=== PATIENT | male | born 1940 | race Caucasian/White ===

== ENCOUNTER 2016-05-02 18:32 | Inpatient (IN) | payer OTHER ==
[~2016-05-02] VITALS: Ht 175.3 cm; Wt 62.6 kg
--- NOTE | ~2016-05-02 | EKG ---
[place] [address] [facility] [place] [employer] [place] [address] ELECTROCARDIOGRAM REPORT Name: ANNIEANALIA Room #: 423-1 ADM IN M.R.#: [id number] Admission: 05/02/16 Attend Phys: William Villafuerte MD Discharge: Date of : 42 Report #: [id number] THIS REPORT FOR: //name// [facility] ED Test Date: 2016-05-02 Test Time: 19:06:17 Pat Name: ANALIA VALENCIA Department: Room: [facility] Gender: M Vp Director Of Creative Strategy: RENITA : 1940 Requested By: Erin Croft Order Number: [id number] MD: Parker Perez Measurements Intervals [place] Rate: 66 P: 246 SD: 166 QRS: 40 QRSD: 94 T: 14 QT: 464 QTc: 487 Interpretive Statements Sinus or ectopic atrial rhythm Borderline prolonged QT interval Baseline wander in lead(s) II No previous ECG available for comparison Electronically Signed On 05-05-2016 8:57:07 CDT by Parker Perez [email or web address] <ELECTRONICALLY SIGNED> By: Parker Perez MD, [facility] 05/05/16 0857 05 05 Parker Perez MD, FAC /EPI
--- NOTE | ~2016-05-02 | HC ---
[facility] [place] [address] CONSULTATION Name: ANALIA VALENCIA Room #: 423-1 ADM IN [facility].#: [id number] Admission: 05/02/16 Attend Phys: William Villafuerte MD Discharge: Date of : 42 Report #: [id number] THIS REPORT FOR: //name// CC: William Aburto MD DATE OF SERVICE: 05/03/2016 HISTORY OF PRESENT ILLNESS: The patient is a 75-year-old single white male, who I was asked to see in the hospital today after he complained of feeling lightheaded. The patient has an extensive past medical history. Most of the history was obtained from the patient. He states that he actually had balloon angioplasty performed at [facility] back in the . He was actually seen by Dr. Alcazar at that time. He eventually underwent quadruple coronary artery bypass surgery in 1995, at [facility]. He was followed by Dr. Doe at that time. He has had no further cardiac catheterizations. He never required stenting. His last stress test in August 2015 showed a fixed defect, but no ischemia. His last echocardiogram in 2012 showed an ejection fraction of 50% with mild aortic and mitral regurgitation. The patient does not exercise on a regular basis because of chronic back pain. He does have a history of paroxysmal atrial fibrillation. He apparently has never been cardioverted. He has been chronically anticoagulated. 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 He last saw Dr. Lucero in the cardiology clinic in [place] in February of this year. At that time, he was doing well. His pacemaker was actually analyzed in December 2015. It did show intermittent episodes of atrial fibrillation with mode switching. The patient states that for the last few days, he has felt lightheaded. He felt as if he had to hold on to something or he would fall. He felt weak. He has had some ringing in the ear and nausea. Because of these episodes, he finally came to the emergency room yesterday afternoon. He felt lightheaded. He denied any vomiting, diarrhea or bleeding. He denied the room spinning. He denied falling to the right or left. He has had no blood in stool. He denied any chest pain, shortness of breath, edema or palpitations. He was admitted for further evaluation and treatment. The patient was seen by Neurology yesterday who was not sure what his symptoms were due to. However, no significant neurologic pathology was noted. PAST MEDICAL HISTORY: Otherwise significant for esophageal cancer about 15 years ago. He apparently underwent esophagectomy, followed by chemotherapy and radiation therapy by . He has a history of hyperlipidemia. He has had no history of hypertension and no diabetes. MEDICATIONS: Include, 1. Ranitidine. [address] [address] CONSULTATION Name: ANALIA VALENCIA Zaheer Room #: 423-1 ADM IN .R.#: [id number] Admission: 05/02/16 Attend Phys: William Villafuerte MD Discharge: Date of : 42 Report #: [id number] 2. Lipitor. 3. Pradaxa. 4. Sotalol, he takes 180 mg twice a day. 5. Celecoxib. 6. Imdur 30 mg a day. 7. Flomax. ALLERGIES: He has no known drug allergies. FAMILY HISTORY: Negative for heart disease. SOCIAL HISTORY: He is retired from the [employer]. 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 He lives in [place], [place]. His actually just last January and he is still somewhat depressed following her after a 50-year marriage. No smoking or alcohol abuse. REVIEW OF SYSTEMS: He apparently was told by his eye doctor in the past he has had a TIA. He has no history of asthma or peptic ulcer disease. He has had a kidney stone. No chronic skin condition. PHYSICAL EXAMINATION: GENERAL: Revealed an elderly male who was lying in bed. He appeared in no distress. VITAL SIGNS: He had a blood pressure supine of 150/80, standing 150/80. He was afebrile. HEENT: He was anicteric. Conjunctivae are pink. Mucous membranes are moist. NECK: Veins nondistended. No carotid bruits. CHEST: Clear to auscultation. CARDIOVASCULAR: Regular rate and rhythm. No significant murmur. ABDOMEN: Soft, nontender. EXTREMITIES: Had no edema. Dorsalis pedis pulse could not be palpated. SKIN: Cool and dry. NEUROLOGIC: Nonfocal. LYMPH: No adenopathy. MUSCULOSKELETAL: No joint effusion. IMAGING STUDIES: His ECG appears to show an atrial paced rhythm with QT prolongation and on the monitor, he has remained atrial-paced with occasional PVC. His workup so far, he had a CTA of the head and neck that showed no high-grade stenosis or aneurysm. CT scan of the head done without contrast showed no acute abnormality. He had a chest x-ray that showed normal heart size and clear lung willis. LABORATORY STUDIES: His lab work, sodium 138, creatinine 1.1 and glucose 92. Liver function studies were normal. Hemoglobin 10.5. TSH 1.4. B12 of 652. Urinalysis was negative for protein, negative leukocytes. [address] [address] CONSULTATION Name: ANALIA VALENCIA Room #: 423-1 ADM IN ..#: [id number] Admission: 05/02/16 Attend Phys: William Villafuerte MD Discharge: Date of : 42 Report #: [id number] IMPRESSION AND RECOMMENDATIONS: 1. Lightheaded spells. The patient is not orthostatic. Possibly related to paroxysmal atrial fibrillation. The patient is noted to have frequent mode switching. I would recommend increasing his sotalol up to 240 mg twice a day. I would continue anticoagulation. 2. History of atrial fibrillation. 3. Sick sinus syndrome. The patient has a dual-chamber pacemaker in place. 4. Coronary artery disease. Previous bypass surgery. No recent angina. 5. Hyperlipidemia. The patient is on a statin drug. 6. History of esophageal cancer. 7. Anemia. No history of bleeding. At this time, I think it is reasonable to discharge the patient on his present medications including increasing sotalol to 240 mg twice a day. I will make sure that he receives followup with my partner, Dr. Lucero. <ELECTRONICALLY SIGNED> By: Kasi Kelley MD, FACC 05/05/16 0905 1749 2215 Kasi Kelley MD, FAC /nt
--- NOTE | ~2016-05-02 | HC ---
[facility] [place] [address] CONSULTATION Name: ANALIA VALENCIA Zaheer Room #: 423-1 ADM IN .R.#: [id number] Admission: 05/02/16 Attend Phys: William Villafuerte MD Discharge: Date of : 42 Report #: [id number] THIS REPORT FOR: //name// CC: William Aburto DATE OF SERVICE: 05/03/2016 DATE OF SERVICE: 05/03/2016. HISTORY OF PRESENT ILLNESS: This is a 75-year-old male patient who was evaluated by me for somewhat of an unusual history. History for complaint is that he has ambulation difficulty. He suspect it started about 1-2 weeks ago, it is worse when me gets up and become somewhat better as the day progresses, it, but some ambulation difficulty is always there. His ambulation difficulty is a moderately severe in the morning, but it is less severe as the day progresses. He does not know what brings it on. He does not know any other factors which makes it better or worse. It started spontaneously and has become somewhat worse. REVIEW OF SYSTEMS: Pretty extensive in this patient. He has a history of esophageal carcinoma and the stomach surgery was done at that time and esophagus was removed. He did receive chemotherapy and radiation. That was long time ago in early 1999. He did not have any evidence of reoccurrence and he does not have any paraneoplastic process since then. His in January, but he does not feel too much depressed. He did start drinking 1 alcoholic drink every night. Then, he thought that may have caused it, and he stopped drinking alcohol. He had some nausea and vomiting, but that was not very prominent. He has lost significant amount of weight recently. This was his relevant 14-point review of system. He indicates that he does have a pacemaker. He has talked to Cardiology and they have indicated there has been event, but he has not been able to find out what event it was. He has taken multiple vitamin on a regular basis for a long period of time. He is also on Pradaxa for his atrial fibrillation. He denies any new eye, ENT, respiratory, , musculoskeletal, constitutional, dermatological, hematological, psychiatric, throat or allergic symptom associated with present symptomatology. PAST MEDICAL HISTORY: Positive for esophageal carcinoma. FAMILY HISTORY: Negative for early age stroke. SOCIAL HISTORY: He has recently started to drink 1 alcoholic drink a day, but otherwise does not smoke or drink any alcohol. PHYSICAL EXAMINATION: Indicate he is alert, responsive, oriented. His speech, concentration, fund of [address] [address] CONSULTATION Name: ANALIA VALENCIA Room #: 423-1 [facility] IN [facility].#: [id number] Admission: 05/02/16 Attend Phys: William Villafuerte MD Discharge: Date of : 42 Report #: [id number] knowledge and memory is at his baseline. Cranial nerve examination 2-12 was unremarkable. He does appear to have symmetrical strength, sensation, reflexes and tone in all 4 extremities. He does not appear to have any marked abnormality of [id number]. Attempt was made to do THE fundus examination. I could not have a very good look at the patient's fundus and we will try again. He is a reasonably well-developed individual who does not have any dysmorphic features of eyes, ears and face. His vision and hearing looks adequate. He does not appear to have any carotid bruit or meningeal sign and his thyroid is unremarkable. He does have a pacemaker and does have a history of atrial fibrillation, but heart sounds, looks unremarkable, does not have any respiratory difficulty and there is no rhonchi. There is no edema, cyanosis or jaundice. His pulses are difficult to feel, but I believe are palpable. His CT and CT angiogram was reviewed and is summarized as of all. His vital signs were reviewed. His last blood pressure is 148/73, respiration is 18, pulse is 66, temperature is 97.9 and he has been checked for postural hypotension and none has been found and in fact his blood pressure is running somewhat higher range. LABORATORY DATA: Indicates mild anemia as the hemoglobin of 10.5, but is otherwise unremarkable. IMPRESSION: It is not clear what this patient's diagnosis is. Neurological etiology is less likely in this patient because a CT and CT angiogram is clear and he is already on Pradaxa, which would protect from stroke. MRI is a better test, but that cannot be done because of his pacemaker. However, because of the normal CT, I will suggest looking for other etiology for the patient's symptom. I will suggest checking overnight pulse oximetry. I will go ahead and give him thiamine and because he did drink alcohol. The possibility of depression need to be excluded, but I think we need to concentrate on ruling out organic causes for the time being. He does have a previous stomach surgery and the possibility of deficiency need to be excluded. His pacemaker need to be checked, especially if he has an event and further cardiac workup may have to be done, which I will defer to you. RECOMMENDATIONS: 1. We will see how he does with the physical therapy today. 2. We will order some more blood workup. 3. I will suggest concentrating on systemic workup in this patient as outlined above. 4. We will go ahead and give thiamine to this patient. 5. I will check a thyroid and B12 level. 6. I will check voltage gated calcium channel antibodies and sed rate on him tomorrow. [facility] [address] [place] [address] CONSULTATION Name: ANALIA VALENCIA Zaheer Room #: 423-1 ADM IN M.R.#: [id number] Admission: 05/02/16 Attend Phys: William Villafuerte MD Discharge: Date of : 42 Report #: [id number] Thank you very much for allowing me to share in the management of this patient and will follow the patient along with you. <ELECTRONICALLY SIGNED> By: Nazario Brizuela MD 05/05/16 0132 0941 1049 Nazario Brizuela MD /nt
--- NOTE | ~2016-05-02 | 2DMMODE ---
[facility] [place] [employer] [place] [address] 2 D/M-MODE ECHOCARDIOGRAM Name: ANALIA VALENCIA Room #: 423-1 [facility] IN [facility]#: [id number] Admission: 05/02/16 Attend Phys: Richard Martini Discharge: 05/05/16 Date of : 42 Date of Service: 05/06/16 0917 Report #: [id number] THIS REPORT FOR: //name// APPROVED REPORT EXAM: Comprehensive 2D, Doppler, and color-flow Echocardiogram Patient Location: Bedside Blood Pressure: 164/85 mmHg HR: 65 bpm Rhythm: Atrial Fibrillation Other Information Study Quality: Good Indications Dizziness and Vertigo Atrial Fibrillation CAD Hypertension/HDD CABG 2D Dimensions LVEF(%): 39.36 (>50%) IVSd: 10.23 (7-11mm) LVOT Diam: 19.00 (18-24mm) LVDd: 34.98 mm PWd: 11.38 (7-11mm) Ascending Aorta: 27.58 mm LVDs: 28.48 (25-40mm) Cherry's LVEF: 39.36 % Volumes Left Atrial Volume (Systole) Single Plane 4CH: 27.07 mL Single Plane 2CH: 32.66 mL LA ESV Index: 20.00 mL/m2 Aortic Valve AoV Peak Kraig.: 1.21 m/s AI PHT: 868.16 ms AO Peak Gr.: 6.49 mmHg LV Max P.99 mmHg LV Max: 0.86 m/s AI Vmax: 4.04 m/s AI [place]: 1.36 m/s2 [facility] [address] 2 D/M-MODE ECHOCARDIOGRAM Name: ANNIEANALIA Room #: 423-1 [facility] IN [facility]#: [id number] Admission: 05/02/16 Attend Phys: Richard Martini Discharge: 05/05/16 Date of : 42 Date of Service: 05/06/16 0917 Report #: [id number] Mitral Valve MV PHT: 79.89 ms MV E Max Kraig.: 0.91 m/s E/A Ratio: 1.7 MV A Kraig.: 0.53 m/s MV Decel. Time: 275.49 ms Pulmonary Valve PV Peak Kraig.: 0.98 m/s PV Peak Gr.: 3.90 mmHg Tricuspid Valve TR Peak Kraig.: 2.44 m/s RAP Estimate: 5.00 mmHg TR Peak Gr.: 23.90 mmHg Left Ventricle The left ventricle is normal size. Mid-septal hypokinesis. There is normal left ventricular wall thickness. Left ventricular systolic function is mildly decreased. LVEF is 45-50%. The left ventricular diastolic function is normal. Right Ventricle Right ventricle is mildly dilated. The right ventricular systolic function is normal. Atria The left atrium size is normal. Right atrium is mildly dilated. Aortic Valve Aortic valve leaflets are sclerotic but open well. Mild aortic regurgitation. There is no aortic valvular stenosis. Mitral Valve The mitral valve is normal in structure. Mild mitral regurgitation. Tricuspid Valve The tricuspid valve is normal in structure. Trace tricuspid regurgitation. Pulmonic Valve The pulmonary valve is normal in structure. Trace pulmonic regurgitation. Great Vessels The aortic root is normal in size. IVC is normal in size and collapses >50% with inspiration. [facility] [place] [employer] [place] [address] 2 D/M-MODE ECHOCARDIOGRAM Name: ANALIA VALENCIA Room #: 423-1 DIS IN M.R.#: [id number] Admission: 05/02/16 Attend Phys: Richard Martini Discharge: 05/05/16 Date of : 42 Date of Service: 05/06/16916 Report #: [id number] Pericardium There is no pericardial effusion. <Conclusion> Left ventricular systolic function is mildly decreased. LVEF is 45-50%. Mid-septal hypokinesis. Right ventricle is mildly dilated. Right atrium is mildly dilated. Aortic valve leaflets are sclerotic but open well. Mild aortic regurgitation. Mild mitral regurgitation. <ELECTRONICALLY SIGNED> By: Kasi Kelley MD, [facility] 05/06/16916 6 6 Kasi Kelley MD, FACC /INF
--- NOTE | ~2016-05-02 | EKG ---
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
[~2016-05-02 18:32] MED LIST: ACETAMINOPHEN-1 EAC1 PO; AMBEREN PO; AMBIEN 10 MG TA10 MG PO; ASPIRIN EC81 M1 PO; ESGIC PO; FISH OIL 1,001000 MG PO; LIPITOR10 MG PO; LISINOPRIL-HCT1 EAC1 PO; MAALOX SUSPENS148 ML PO; PLAVIX 75 MG TA75 MG PO; PRADAXA150 MG PO; SOTALOL80 MG PO; VITAMIN D31000 UNI2 PO; ZANTAC 150MG T150 M1 PO
[2016-05-02 19:04] VITALS: BP 144/84
[2016-05-02] MEDS ORDERED: TRAMADOL 50 MG50 MG PO (19:14)
[2016-05-02] MEDS ORDERED: BUTALB-APAP-CA1 EACH PO (19:14)
[2016-05-02] MEDS ORDERED: CELECOXIB100 MG PO (19:14)
[2016-05-02] MEDS ORDERED: IMDUR 30 MG TAB30 M1 PO (19:14)
[2016-05-02 20:43] LABS: URINE BILIRUBIN NEGATIVE (Negative); URINE BLOOD NEGATIVE (Negative); URINE COLOR YELLOW; URINE GLUCOSE-RANDOM* NEGATIVE (Negative); URINE KETONES TRACE (Negative); URINE NITRITE NEGATIVE (Negative); URINE PROTEIN (DIPSTICK) NEGATIVE (Negative); URINE SPECIFIC GRAVITY 1.025 (1.003-1.035); URINE UROBILINOGEN 0.2 E.U./dl (0.2-1.0)
[2016-05-02 20:43] LABS: ABSOLUTE NEUTROPHILS 3.8 thou/uL (1.4-8.2); BASOPHILS 0.2 % (0.0-2.0); EOSINOPHILS 0.7 % (0.0-3.0); HEMATOCRIT 31.9 % (42.0-52.0); HEMOGLOBIN 10.5 gm/dL (14.0-18.0); LYMPHOCYTES 30.4 % (24.0-44.0); MCH 32.3 pg (26.0-34.0); MCV 97.9 fL (80.0-100.0); MONOCYTES 7.9 % (1.0-8.0); PLATELET COUNT 221 thou/uL (150-400); POLYS 60.8 % (36.0-66.0); RBC 3.26 mil/uL (4.50-6.00); RDW 14.4 % (10.5-14.5); WBC 6.3 thou/uL (4.0-11.0)
[2016-05-02 20:46] LABS: MANUAL DIFF NO
[2016-05-02 20:59] LABS: ANION GAP 5 mmol/L (7-16); BUN 24 mg/dL (7-18); CALCIUM 9.2 mg/dL (8.5-10.1); CHLORIDE 105 mmol/L (98-107); CO2 28 mmol/L (21-32); CREATININE 1.1 mg/dL (0.6-1.3); GLUCOSE 92 mg/dL (70-99); POTASSIUM 4.1 mmol/L (3.5-5.1); SODIUM 138 mmol/L (136-145)
[2016-05-02 21:03] LABS: ALBUMIN 3.5 g/dL (3.4-5.0); ALKALINE PHOSPHATASE 60 U/L (46-116); SGOT 25 U/L (15-37); SGPT 36 U/L (30-65); TOTAL BILIRUBIN 0.6 mg/dL (<0.1-1.0); TOTAL PROTEIN 7.4 g/dL (6.4-8.2); TROPONIN-I < 0.04 ng/mL (<0.04-0.07)
[2016-05-02 23:05] VITALS: BP 130/66
[2016-05-03] VITALS (7 sets, daily range): BP systolic 104–174; BP diastolic 64–96
[2016-05-03] MEDS ORDERED: PRADAXA150 MG PO ×2 (01:52→01:56)
[2016-05-03] MEDS ORDERED: FLOMAX0.4 MG PO (01:55)
[2016-05-03 13:52] LABS: TSH 1.473 uIU/mL (0.358-3.740)
[2016-05-04] VITALS: BP 147/85
[2016-05-04 04:00] VITALS: BP 126/87
[2016-05-04 06:18] LABS: CHOLESTEROL 125 mg/dL (<200); HDL CHOLESTEROL 72 mg/dL (>40); LDL CHOLESTEROL 46 mg/dL (<100); TC:HDL 1.7 Ratio (Not establshd); TRIGLYCERIDE 36 mg/dL (<150); VLDL 7 mg/dL (<40)
[2016-05-04 08:00] VITALS: BP 151/81
[2016-05-04 10:38] VITALS: BP 151/81
[2016-05-04 14:30] VITALS: BP 105/57
[2016-05-04 20:00] VITALS: BP 132/69
[2016-05-05 04:00] VITALS: BP 137/85
[2016-05-05 06:09] LABS: HEMATOCRIT 29.9 % (42.0-52.0); MCH 32.5 pg (26.0-34.0); MCHC 33.3 g/dL (28.0-37.0); MCV 97.4 fL (80.0-100.0); RBC 3.07 mil/uL (4.50-6.00); RDW 14.7 % (10.5-14.5); WBC 6.6 thou/uL (4.0-11.0)
[2016-05-05 06:44] LABS: CALCIUM 8.6 mg/dL (8.5-10.1); CREATININE 1.2 mg/dL (0.6-1.3); POTASSIUM 3.9 mmol/L (3.5-5.1)
[2016-05-05 07:53] VITALS: BP 164/85
[2016-05-05] MEDS ORDERED: VITAMIN B-1100 M2 PO (12:41)
[2016-05-05] MEDS ORDERED: VITAMIN D1000 UNI1 PO (12:41)
[2016-05-05] MEDS ORDERED: SORINE 80 MG TA80 MG PO (12:56)
[2016-05-05 13:09] LABS: ANTI-DNA SCREEN <1 IU/mL (0-9); ANTI-RNP <0.2 AI (0.0-0.9)
[2016-05-05 13:12] VITALS: BP 164/85
[2016-05-05 13:55] VITALS: BP 164/85
== END 2016-05-05 14:55 | disposition home or self-care (01) | DRG 92 ==
LOC: ER 18:32 → 4E 23:16 → EROBS 23:16 → 4E 23:58
PROVIDERS: Hospitalist; Internal Medicine Cardiovascular Disease; Physician Assistant; Psychiatry & Neurology Neuromuscular Medicine
DX: R27.0 Ataxia, unspecified (principal); E44.1 Mild protein-calorie malnutrition; I95.2 Hypotension due to drugs; I95.9 Hypotension, unspecified; I48.0 Paroxysmal atrial fibrillation; E78.5 Hyperlipidemia, unspecified; I49.5 Sick sinus syndrome; G62.9 Polyneuropathy, unspecified; I25.10 Atherosclerotic heart disease of native coronary artery without angina pectoris; D64.9 Anemia, unspecified; R63.4 Abnormal weight loss; T45.0X5A Adverse effect of antiallergic and antiemetic drugs, initial encounter; I11.9 Hypertensive heart disease without heart failure; Z88.6 Allergy status to analgesic agent; Z88.0 Allergy status to penicillin; I25.2 Old myocardial infarction; Z86.73 Personal history of transient ischemic attack (TIA), and cerebral infarction without residual deficits; Z87.01 Personal history of pneumonia (recurrent); Z85.01 Personal history of malignant neoplasm of esophagus; Z90.49 Acquired absence of other specified parts of digestive tract; Z95.1 Presence of aortocoronary bypass graft; Z95.0 Presence of cardiac pacemaker; Z79.899 Other long term (current) drug therapy; Z95.5 Presence of coronary angioplasty implant and graft; Y92.89 Other specified places as the place of occurrence of the external cause; Z68.20 Body mass index [BMI] 20.0-20.9, adult
CPT/HCPCS: 10183

== ENCOUNTER 2016-05-23 14:13 | Inpatient (IN) | payer OTHER ==
[~2016-05-23] VITALS: Ht 172.7 cm; Wt 62.1 kg
--- NOTE | ~2016-05-23 | HC ---
[facility] [place] [address] CONSULTATION Name: CHRIS VALENCIACHAPARRITA Schwab Room #: 536-P [facility] IN ..#: [id number] Admission: 05/23/16 Attend Phys: Sean Aburto MD Discharge: 05/24/16 Date of : 42 Report #: [id number] THIS REPORT FOR: //name// CC: Sean Aburto DATE OF SERVICE: 05/24/2016 CHIEF COMPLAINT: Tenesmus. HISTORY OF PRESENT ILLNESS: The patient is a very pleasant 75-year-old retired [employer] with several day history of pain with bowel movements. The patient had been dealing with this pain for approximately the last 2 weeks, but this became so severe that he was having difficulty voiding and passing bowel movements. He therefore was seen by family practice physician and was admitted directly to the hospital with CT scan of the pelvis obtained. The CT scan demonstrated a perirectal abscess measuring 12-13 cm surrounding the rectum. No obvious free air was noted, significant urinary retention was also noted on that scan. The patient reported that he had been tolerating regular diet well and had continued to pass flatus. PAST MEDICAL HISTORY: Positive for hypertension, hyperlipidemia, previous TIAs, previous OH in 1979, coronary artery bypass graft x 4 in 1985, previous aspiration pneumonia, previous thoracentesis, esophageal cancer in 2001, apparently treated with esophagectomy with adjuvant chemoradiation therapy, history of peripheral neuropathy, bilateral lower extremities associated with Taxol. PAST SURGICAL HISTORY: Positive for esophagectomy, cholecystectomy, and coronary artery bypass graft. SOCIAL HISTORY: Negative for tobacco or drug use. The patient does report social ETOH. He is a retired [employer] . MEDICATIONS: Include sotalol, Pradaxa, Lipitor, Zantac, Ambien, multivitamin, fish oil, vitamin D3, Celebrex, Imdur, Fioricet, Ultram. REVIEW OF SYSTEMS: CONSTITUTIONAL: Negative for unwanted weight loss, positive for fevers. OCULAR: No diplopia or visual change. HEENT: No dysphagia or odynophagia. PULMONARY: No productive cough, no shortness of breath. CARDIOVASCULAR: No chest pain or palpitation. GASTROINTESTINAL: Positive for tenesmus and lower abdominal pain as well as pelvic pain. GENITOURINARY: Positive for urinary retention. MUSCULOSKELETAL: No back pain or joint swelling. CUTANEOUS: Negative for skin lesions or rashes. NEUROLOGIC: No focal weakness, it is positive for lower extremity peripheral [address] [address] CONSULTATION Name: CHRIS VALENCIACHAPARRITA Schwab Room #: 536-P [facility] IN [facility]#: [id number] Admission: 05/23/16 Attend Phys: Sean Aburto MD Discharge: 05/24/16 Date of : 42 Report #: [id number] neuropathy associated with Taxol. PSYCHIATRIC: No depression or anxiety at this time. ENDOCRINE: No heat or cold intolerance. PHYSICAL EXAMINATION: GENERAL: The patient is awake, alert and oriented. He does give appropriate history. He is in no acute distress. HEENT: Head is atraumatic and normocephalic. No icterus. Mucosae are pink and moist. NECK: Supple without lymphadenopathy. LUNGS: Clear to auscultation bilateral. ABDOMEN: Soft, nondistended, nontender to palpation. RECTAL: Shows an exquisitely tender ELAINA. No gross blood. No purulence expressible. There is some cellulitis and warmth especially at the left perianal skin. EXTREMITIES: Without clubbing, cyanosis or edema. The patient moves all extremities. No focal deficits. LABORATORY DATA: CT scan of the pelvis with contrast was obtained by primary care and this was reviewed in detail. This shows a donut-shaped fluid collection surrounding the rectum measuring 12-13 cm in length and 16 cm thick consistent with perirectal abscess, minimal surrounding inflammatory change, anterior to the bladder. Laboratory studies reviewed. White count was 19.7, hemoglobin of 8.5, platelets of 306, creatinine of 1.3. IMPRESSION: A 75-year-old male patient with extensive medical history including previous myocardial infarction and esophageal cancer with extensive perirectal abscess. RECOMMENDATIONS: 1. Agree with IV antibiotic coverage, would place Beltrán catheter given urinary retention visible on CT scan. 2. Recommend evaluation by colorectal surgery as incision and drainage in the operating room may involve pelvic floor structures. 3. Case discussed with primary care physician as well as with the patient who are agreeable with transferring to a facility where colorectal surgery will be available. Consultation very much appreciated. <ELECTRONICALLY SIGNED> By: Miguel Mera MD 05/28/16 1038 1500 0525 Miguel Mera MD /nt
--- NOTE | ~2016-05-23 | D ---
[facility] [place] [address] DISCHARGE SUMMARY Name: ANNIEANALIA L Room #: 536-P [facility]#: [id number] Admission: 05/23/16 Attend Phys: Sean Aburto MD Discharge: 05/24/16 Date of : 44 Report #: [id number] THIS REPORT FOR: //name// CC: Sean Aburto DATE OF SERVICE: 05/24/2016 DATE OF ADMISSION: 05/23/2016. DATE OF DISCHARGE: 05/24/2016. ADMITTING DIAGNOSES: 1. Perirectal abscess. 2. Atrial fibrillation. DISCHARGE DIAGNOSES: 1. Perirectal abscess. 2. Atrial fibrillation. HISTORY OF PRESENT ILLNESS: The patient is a 75-year-old male who I had seen in the outpatient setting and diagnosed with a perirectal abscess. It was fairly mild, we treated with oral antibiotics, but he was getting progressively worse, increasing pain and now unable to void. In light of the increasing pain, we did an outpatient CT which showed this perirectal abscess circumferential around the rectum. He also had a marked distended bladder. In light of that, we admitted him. I consulted General Surgery, placed a Beltrán catheter, which did give him significant relief from his pain. General Surgery said that this was too complex for their experience, and they would like the patient to see a colorectal surgeon. I discussed with Dr. Garcia at [facility]. They would be willing to accept him in transfer for management of this perirectal abscess. The patient had been started on Zosyn IV, had been given a Beltrán and had been started on IV fluids. He was feeling much better on the morning of this 8th, was ready for transfer. PAST MEDICAL HISTORY: Significant for, he has had a pacemaker placement for sinus syndrome. He has BPH, hyperlipidemia, coronary artery disease, history of AFib RVR, chronic degenerative arthritis and reflux. MEDICATIONS: Include multivitamin, vitamin D, thiamine, Zantac 150 b.i.d., Ambien 10 mg at bedtime, tramadol 50 mg a day, sotalol 240 mg b.i.d., isosorbide mononitrate 30 mg daily, atorvastatin 10 mg a day and tamsulosin 0.4 mg a day. PHYSICAL EXAMINATION: VITAL SIGNS: On admission, he was afebrile, blood pressure 108/48 and his pulse was 69. GENERAL: He was awake and alert, in no acute distress. [address] [address] DISCHARGE SUMMARY Name: ANALIA VALENCIA Room #: 536-P [facility] IN [facility]#: [id number] Admission: 05/23/16 Attend Phys: Sean Aburto MD Discharge: 05/24/16 Date of : 42 Report #: [id number] HEENT: Mucous membranes were moist. NECK: Supple, without adenopathy, thyromegaly or bruits. CHEST: Clear to auscultation. HEART: He had a paced rhythm, rate of 68. ABDOMEN: Soft, nondistended and nontender, no masses. Normal active bowel sounds. He had some tenderness in the left side of his rectum, some induration there. No significant erythema or obvious purulent drainage. His rectal tone was intact. EXTREMITIES: Showed no edema. LABORATORY DATA: White blood cell count was 19.7, hemoglobin 8.5, BUN was 25, creatinine was 1.3. Again, the patient felt better after the catheter was placed but continued to have this abscess. DISPOSITION: He will be transferred to [facility] today under the care of the hospital group and Dr. Garcia will see him in consultation for a procedure to drain the abscess. <ELECTRONICALLY SIGNED> By: Sean Aburto MD 05/25/16 0844 0911 1707 Sean Aburto MD /nt
[~2016-05-23 14:13] MED LIST changes: +BUTALB-APAP-CA1 EACH PO; +CELECOXIB100 MG PO; +FLOMAX0.4 MG PO; +IMDUR 30 MG TAB30 M1 PO; +SORINE 80 MG TA80 MG PO; +TRAMADOL 50 MG50 MG PO; +VITAMIN B-1100 M2 PO; +VITAMIN D1000 UNI1 PO
[2016-05-23 14:50] LABS: CREATININE 1.3 mg/dL (0.7-1.3)
[2016-05-23 19:47] VITALS: BP 108/48
[2016-05-24 05:30] LABS: HEMATOCRIT 26.2 % (42.0-52.0); HEMOGLOBIN 8.5 gm/dL (14.0-18.0); MCH 31.6 pg (26.0-34.0); MCHC 32.6 g/dL (28.0-37.0); RBC 2.7 mil/uL (4.50-6.00); RDW 14.3 % (10.5-14.5); WBC 19.7 thou/uL (4.0-11.0)
[2016-05-24 08:34] VITALS: BP 126/60
[2016-05-24 14:35] VITALS: BP 127/65
== END 2016-05-24 15:20 | disposition short-term general hospital (02) | DRG 395 ==
LOC: CAT 14:13 → 5S 16:28
PROVIDERS: Colon & Rectal Surgery; Family Medicine
DX: K61.1 Rectal abscess (principal); I10 Essential (primary) hypertension; E78.5 Hyperlipidemia, unspecified; I25.10 Atherosclerotic heart disease of native coronary artery without angina pectoris; G62.9 Polyneuropathy, unspecified; I48.91 Unspecified atrial fibrillation; I49.5 Sick sinus syndrome; N40.0 Benign prostatic hyperplasia without lower urinary tract symptoms; K21.9 Gastro-esophageal reflux disease without esophagitis; M19.90 Unspecified osteoarthritis, unspecified site; R33.9 Retention of urine, unspecified; Z88.6 Allergy status to analgesic agent; Z86.73 Personal history of transient ischemic attack (TIA), and cerebral infarction without residual deficits; Z90.49 Acquired absence of other specified parts of digestive tract; Z85.01 Personal history of malignant neoplasm of esophagus; Z95.0 Presence of cardiac pacemaker; Z87.01 Personal history of pneumonia (recurrent); Z95.1 Presence of aortocoronary bypass graft; I25.2 Old myocardial infarction; Z88.0 Allergy status to penicillin
CPT/HCPCS: 10785

== ENCOUNTER → 2016-06-04 | Outpatient (CLI) | payer OTHER ==
[2016-06-04 10:11] LABS: HEMATOCRIT 24.3 % (42.0-52.0); HEMOGLOBIN 7.9 gm/dL (14.0-18.0); MCH 32.1 pg (26.0-34.0); MCHC 32.5 g/dL (28.0-37.0); MCV 98.8 fL (80.0-100.0); RBC 2.46 mil/uL (4.50-6.00); RDW 15.4 % (10.5-14.5); WBC 5.9 thou/uL (4.0-11.0)
[2016-06-04 10:36] LABS: CALCIUM 8.3 mg/dL (8.5-10.1); CREATININE 1.2 mg/dL (0.7-1.3); POTASSIUM 4.1 mmol/L (3.5-5.1)
== END ==
LOC: CAT 09:13
PROVIDERS: Family Medicine
DX: K61.1 Rectal abscess (principal); N20.0 Calculus of kidney

== ENCOUNTER → 2016-09-05 | Outpatient (CLI) | payer OTHER | LOC: CAT 09:02 | DX: R63.4 Abnormal weight loss (principal) ==

== ENCOUNTER 2016-10-22 16:07 | Emergency (ER) | payer OTHER ==
[~2016-10-22] VITALS: Ht 177.8 cm; Wt 59.0 kg
[2016-10-22] MEDS ORDERED: PROBIOTIC1 EAC1 PO (16:53)
[2016-10-22 16:55] LABS: URINE BILIRUBIN NEGATIVE (Negative); URINE BLOOD 3+ (Negative); URINE COLOR RED; URINE GLUCOSE-RANDOM* NEGATIVE (Negative); URINE KETONES TRACE (Negative); URINE NITRITE POSITIVE (Negative); URINE PROTEIN (DIPSTICK) 3+ (Negative)
[2016-10-22 17:06] LABS: SQUAMOUS None Seen /LPF (0-3); URINE RBC >20 Many /HPF (0-2); URINE WBC 0-5 Rare /HPF (0-5); YEAST Present (None Seen)
[2016-10-22 17:07] LABS: BACTERIA 1-9 Few /HPF (None Seen); CASTS None Seen /LPF (None Seen); CRYSTALS None Seen /LPF (None Seen)
[2016-10-22 17:51] LABS: ABSOLUTE NEUTROPHILS 6.2 thou/uL (1.4-8.2); BASOPHILS 0.1 % (0.0-2.0); EOSINOPHILS 0.8 % (0.0-3.0); HEMATOCRIT 30.7 % (42.0-52.0); HEMOGLOBIN 10.4 gm/dL (14.0-18.0); LYMPHOCYTES 18.1 % (24.0-44.0); MANUAL DIFF NO; MCH 34.6 pg (26.0-34.0); MCHC 34.1 g/dL (28.0-37.0); MCV 101.6 fL (80.0-100.0); MONOCYTES 6.7 % (1.0-8.0); PLATELET COUNT 189 thou/uL (150-400); POLYS 74.3 % (36.0-66.0); RBC 3.02 mil/uL (4.50-6.00); RDW 16.2 % (10.5-14.5); WBC 8.4 thou/uL (4.0-11.0)
[2016-10-22 18:03] LABS: INR 1.1; PROTIME 10.9 Seconds (9.3-11.4)
[2016-10-22 18:04] LABS: ALBUMIN 3.5 g/dL (3.4-5.0); TOTAL BILIRUBIN 0.6 mg/dL (<0.1-1.0); TOTAL PROTEIN 7.4 g/dL (6.4-8.2)
[2016-10-22] MEDS ORDERED: BACTRIM DS TAB1 EACH PO (19:27)
[2016-10-28] MEDS ORDERED: PRADAXA150 MG PO (08:03)
[2016-10-28] MEDS ORDERED: HYDROCODON-ACE1 EAC7 PO (08:04)
== END 2016-10-22 20:39 | disposition home or self-care (01) ==
LOC: ER 16:07
PROVIDERS: Physician Assistant
DX: N39.0 Urinary tract infection, site not specified (principal); N20.1 Calculus of ureter; I95.1 Orthostatic hypotension; Z85.01 Personal history of malignant neoplasm of esophagus; Z90.49 Acquired absence of other specified parts of digestive tract; Z95.0 Presence of cardiac pacemaker; Z88.0 Allergy status to penicillin; Z88.5 Allergy status to narcotic agent

== ENCOUNTER → 2016-10-28 | Outpatient (CLI) | payer OTHER ==
[~2016-10-28] MED LIST changes: +BACTRIM DS TAB1 EACH PO; +HYDROCODON-ACE1 EAC7 PO; +PROBIOTIC1 EAC1 PO
== END | disposition home or self-care (01) ==
LOC: LITH 06:28
DX: N20.0 Calculus of kidney (principal)

== ENCOUNTER → 2016-11-07 | Outpatient (CLI) | payer OTHER | LOC: RAD 11:44 | DX: N20.1 Calculus of ureter (principal) ==

== ENCOUNTER → 2017-09-15 | Outpatient (CLI) | payer OTHER | LOC: NUC 09:34 | DX: M19.071 Primary osteoarthritis, right ankle and foot (principal); R94.39 Abnormal result of other cardiovascular function study; Z85.01 Personal history of malignant neoplasm of esophagus ==

== ENCOUNTER 2018-01-02 14:05 | Emergency (ER) | payer OTHER ==
[~2018-01-02] VITALS: Ht 177.8 cm; Wt 63.5 kg
[2018-01-02 15:57] LABS: ABSOLUTE NEUTROPHILS 6.4 thou/uL (1.4-8.2); BASOPHILS 0.2 % (0.0-2.0); EOSINOPHILS 0.7 % (0.0-3.0); HEMATOCRIT 27.9 % (42.0-52.0); HEMOGLOBIN 9.4 gm/dL (14.0-18.0); LYMPHOCYTES 14.7 % (24.0-44.0); MCH 33.1 pg (26.0-34.0); MCHC 33.7 g/dL (28.0-37.0); MCV 98.1 fL (80.0-100.0); MONOCYTES 6.1 % (1.0-8.0); PLATELET COUNT 270 thou/uL (150-400); POLYS 78.3 % (36.0-66.0); RBC 2.84 mil/uL (4.50-6.00); RDW 13.5 % (10.5-14.5); WBC 8.2 thou/uL (4.0-11.0)
[2018-01-02 16:06] LABS: CALCIUM 9.1 mg/dL (8.5-10.1); CREATININE 1.2 mg/dL (0.7-1.3); POTASSIUM 4.1 mmol/L (3.5-5.1)
[2018-01-02] MEDS ORDERED: MEDROLDOSEPACK PO (17:23)
[2018-01-02] MEDS ORDERED: ULTRAM 50MG TAB50 MG PO (17:23)
[2018-01-02 17:42] VITALS: BP 154/86
== END 2018-01-02 17:43 | disposition home or self-care (01) ==
LOC: ER 14:05
PROVIDERS: Emergency Medicine
DX: M54.12 Radiculopathy, cervical region (principal); M54.32 Sciatica, left side; Z85.01 Personal history of malignant neoplasm of esophagus; Z95.0 Presence of cardiac pacemaker; Z90.49 Acquired absence of other specified parts of digestive tract

== ENCOUNTER 2018-02-23 08:15 | Emergency (ER) | payer OTHER ==
[~2018-02-23] VITALS: Ht 177.8 cm; Wt 63.5 kg
[~2018-02-23 08:15] MED LIST changes: +MEDROLDOSEPACK PO; +ULTRAM 50MG TAB50 MG PO
[2018-02-23 08:58] LABS: URINE BILIRUBIN NEGATIVE (Negative); URINE BLOOD 3+ (Negative); URINE CLARITY CLEAR; URINE COLOR YELLOW; URINE GLUCOSE-RANDOM* NEGATIVE (Negative); URINE KETONES NEGATIVE (Negative); URINE PROTEIN (DIPSTICK) NEGATIVE (Negative); URINE SPECIFIC GRAVITY 1.025 (1.005-1.035)
[2018-02-23 08:59] LABS: URINE LEUKOCYTES-REFLEX NEGATIVE (Negative); URINE NITRITE-REFLEX NEGATIVE (Negative); URINE UROBILINOGEN 0.2 E.U./dl (0.2-1.0)
[2018-02-23 09:02] LABS: ABSOLUTE NEUTROPHILS 14.5 thou/uL (1.4-8.2); BASOPHILS 0.2 % (0.0-2.0); EOSINOPHILS 0.2 % (0.0-3.0); HEMATOCRIT 32.1 % (42.0-52.0); HEMOGLOBIN 10.5 gm/dL (14.0-18.0); LYMPHOCYTES 6.8 % (24.0-44.0); MCH 32.2 pg (26.0-34.0); MCHC 32.7 g/dL (28.0-37.0); MCV 98.6 fL (80.0-100.0); MONOCYTES 4.4 % (1.0-8.0); PLATELET COUNT 300 thou/uL (150-400); POLYS 88.4 % (36.0-66.0); RBC 3.26 mil/uL (4.50-6.00); RDW 16.1 % (10.5-14.5); WBC 16.4 thou/uL (4.0-11.0)
[2018-02-23 09:10] LABS: CALCIUM 9.5 mg/dL (8.5-10.1); CREATININE 1.6 mg/dL (0.7-1.3); POTASSIUM 4.1 mmol/L (3.5-5.1)
[2018-02-23 09:15] LABS: ALBUMIN 3.3 g/dL (3.4-5.0); TOTAL BILIRUBIN 0.5 mg/dL (<0.1-1.0); TOTAL PROTEIN 8.1 g/dL (6.4-8.2)
[2018-02-23 09:20] LABS: CASTS None Seen /LPF (None Seen); CRYSTALS None Seen /LPF (None Seen); SQUAMOUS 0-3 Few /LPF (0-3); URINE RBC 3-10 Few /HPF (0-2)
[2018-02-23 09:21] LABS: BACTERIA-REFLEX 1-9 Few /HPF (None Seen); URINE WBC-REFLEX 0-5 Rare /HPF (0-5)
[2018-02-23] MEDS ORDERED: PREDNISONE 5 MG5 M1 PO (09:50)
[2018-02-23 13:44] VITALS: BP 132/70
== END 2018-02-23 13:40 | disposition short-term general hospital (02) ==
LOC: ER 08:15
PROVIDERS: Physician Assistant
DX: N20.1 Calculus of ureter (principal); N39.0 Urinary tract infection, site not specified; N13.4 Hydroureter; N17.9 Acute kidney failure, unspecified; R11.2 Nausea with vomiting, unspecified; I95.1 Orthostatic hypotension; Z90.49 Acquired absence of other specified parts of digestive tract; Z85.01 Personal history of malignant neoplasm of esophagus

== ENCOUNTER → 2018-06-14 | Outpatient (CLI) | payer OTHER ==
[~2018-06-14] VITALS: Ht 177.8 cm; Wt 63.5 kg
[~2018-06-14] MED LIST changes: -AMBEREN PO; +IRON325 PO; +MULTIVITAMINS1 EAC7 PO; +PREDNISONE 5 MG5 M1 PO; +SONATA5 M1 PO; +SOTALOL 120 MG120 M1 PO
== END | disposition home or self-care (01) ==
LOC: GI 09:40
DX: K21.9 Gastro-esophageal reflux disease without esophagitis (principal); I48.91 Unspecified atrial fibrillation; Z98.890 Other specified postprocedural states; Z95.1 Presence of aortocoronary bypass graft; Z90.49 Acquired absence of other specified parts of digestive tract; Z85.01 Personal history of malignant neoplasm of esophagus; Z79.899 Other long term (current) drug therapy; Z79.01 Long term (current) use of anticoagulants
CPT/HCPCS: 62110; 62900

== ENCOUNTER 2018-07-01 12:21 | Emergency (ER) | payer OTHER ==
[~2018-07-01] VITALS: Ht 177.8 cm; Wt 63.5 kg
[2018-07-01] MEDS ORDERED: OMEPRAZOLE40 MG PO (13:27)
[2018-07-01 13:31] LABS: ABSOLUTE NEUTROPHILS 5.8 thou/uL (1.4-8.2); BASOPHILS 0.3 % (0.0-2.0); EOSINOPHILS 0.2 % (0.0-3.0); HEMOGLOBIN 9.3 gm/dL (14.0-18.0); MCH 34.2 pg (26.0-34.0); MCHC 33.1 g/dL (28.0-37.0); MCV 103.6 fL (80.0-100.0); MONOCYTES 2.6 % (1.0-8.0); PLATELET COUNT 162 thou/uL (150-400); POLYS 85.9 % (36.0-66.0); RBC 2.71 mil/uL (4.50-6.00); WBC 6.8 thou/uL (4.0-11.0)
[2018-07-01 13:38] LABS: ANION GAP 5 mmol/L (7-16); BUN 26 mg/dL (7-18); CALCIUM 8.9 mg/dL (8.5-10.1); CHLORIDE 105 mmol/L (98-107); CO2 28 mmol/L (21-32); CREATININE 1.1 mg/dL (0.7-1.3); GLUCOSE 116 mg/dL (74-106); POTASSIUM 4.6 mmol/L (3.5-5.1); SODIUM 138 mmol/L (136-145)
[2018-07-01 13:47] LABS: TROPONIN-I <0.06 ng/mL (<0.06)
[2018-07-01 14:16] LABS: URINE BILIRUBIN NEGATIVE (Negative); URINE BLOOD NEGATIVE (Negative); URINE CLARITY CLEAR; URINE COLOR YELLOW; URINE GLUCOSE-RANDOM* NEGATIVE (Negative); URINE KETONES TRACE (Negative); URINE LEUKOCYTES NEGATIVE (Negative); URINE NITRITE NEGATIVE (Negative); URINE PROTEIN (DIPSTICK) NEGATIVE (Negative); URINE SPECIFIC GRAVITY 1.025 (1.005-1.035); URINE UROBILINOGEN 0.2 E.U./dl (0.2-1.0)
[2018-07-01 14:24] LABS: ALBUMIN 3.1 g/dL (3.4-5.0); DIRECT BILIRUBIN 0.1 mg/dL (<0.1-0.3); TOTAL BILIRUBIN 0.4 mg/dL (<0.1-1.0); TOTAL PROTEIN 6.8 g/dL (6.4-8.2)
[2018-07-01] MEDS ORDERED: CARAFATE 1 GM TA1 G1 PO (16:54)
--- NOTE | 2018-07-01 17:08 | EKG ---
[place] [address] [facility] [place] [address] ELECTROCARDIOGRAM REPORT Name: CHRIS VALENCIACHAPARRITA Schwab Room #: REG Luis#: [id number] ������������������ Admission: 07/01/18 ������������������ Attend Phys: Discharge: ������������������ Date of : 42 Report #: [id number] ����������������������������������������������������������������� [id number] THIS REPORT FOR: //name// [facility] ED Test Date: 2018-07-01 Test Time: 13:43:39 Pat Name: ANALIA VALENCIA Department: Room: Gender: Government Program Manager: jolly : 1940 Requested By: Cesar Tellez Order Number: [id number] MD: Keenan Uribe Measurements Intervals [place] Rate: 66 P: -22 MI: 140 QRS: 47 QRSD: 97 T: 13 QT: 427 QTc: 448 Interpretive Statements Sinus rhythm Compared to ECG 05/04/2016 07:55:04 First degree AV block no longer present Electronically Signed On 07-01-2018 17:07:57 CDT by Keenan Uribe [email or web address] ��������������������������������������������� <ELECTRONICALLY SIGNED> ���������������������������������������� By: Keenan Uribe MD ��������������������������������������������� 07/01/18 1707 1343 1343 MD RAINER Everett
[2018-07-01 17:45] VITALS: BP 156/74
== END 2018-07-01 18:00 | disposition home or self-care (01) ==
LOC: ER 12:21
PROVIDERS: Emergency Medicine; Student in an Organized Health Care Education/Training Program
DX: K29.70 Gastritis, unspecified, without bleeding (principal); K21.9 Gastro-esophageal reflux disease without esophagitis; I48.91 Unspecified atrial fibrillation; G62.9 Polyneuropathy, unspecified; Z95.1 Presence of aortocoronary bypass graft; Z85.01 Personal history of malignant neoplasm of esophagus; Z90.49 Acquired absence of other specified parts of digestive tract; Z86.2 Personal history of diseases of the blood and blood-forming organs and certain disorders involving the immune mechanism

== ENCOUNTER 2018-07-28 15:48 | Emergency (ER) | payer OTHER ==
[~2018-07-28] VITALS: Ht 177.8 cm; Wt 61.1 kg
[~2018-07-28 15:48] MED LIST changes: +CARAFATE 1 GM TA1 G1 PO; +OMEPRAZOLE40 MG PO
[2018-07-28 16:49] LABS: ABSOLUTE NEUTROPHILS 14.9 thou/uL (1.4-8.2); BASOPHILS 0.2 % (0.0-2.0); EOSINOPHILS 0.1 % (0.0-3.0); HEMATOCRIT 31.2 % (42.0-52.0); HEMOGLOBIN 10.1 gm/dL (14.0-18.0); LYMPHOCYTES 5.6 % (24.0-44.0); MCH 34.1 pg (26.0-34.0); MCHC 32.2 g/dL (28.0-37.0); MONOCYTES 3.1 % (1.0-8.0); PLATELET COUNT 147 thou/uL (150-400); RBC 2.95 mil/uL (4.50-6.00); RDW 15.6 % (10.5-14.5); WBC 16.4 thou/uL (4.0-11.0)
[2018-07-28 16:59] LABS: CREATININE 1.3 mg/dL (0.7-1.3); POTASSIUM 3.5 mmol/L (3.5-5.1)
[2018-07-28 17:09] LABS: ALBUMIN 3.4 g/dL (3.4-5.0); MAGNESIUM 1.8 mg/dL (1.8-2.4); TOTAL BILIRUBIN 0.5 mg/dL (<0.1-1.0); TOTAL PROTEIN 7.3 g/dL (6.4-8.2); TROPONIN-I 0.07 ng/mL (<0.06)
[2018-07-28] MEDS ORDERED: TESSALON PERLE100 MG PO (18:56)
[2018-07-28] MEDS ORDERED: VENTOLIN HFA 1818 GM INH (18:56)
[2018-07-28] MEDS ORDERED: PREDNISONE 20 M20 MG PO (18:56)
[2018-07-28] MEDS ORDERED: AUGMENTIN 875-1 EACH PO (18:56)
[2018-07-28 19:18] VITALS: BP 160/84
--- NOTE | 2018-07-29 07:32 | EKG ---
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: Kenneth Pham : 1940 Requested By: Anderson Fuentes Order Number: [id number] MD: Parker Perez Measurements Intervals [place] Rate: 70 P: 199 VA: 193 QRS: 38 QRSD: 94 T: 34 QT: 424 QTc: 458 Interpretive Statements Sinus rhythm Atrial premature complexes Nonspecific ST segment abnormality Compared to ECG 07/01/2018 13:43:39 Atrial premature complex(es) now present Electronically Signed On 07-29-2018 7:32:24 CDT by Parker Perez [email or web address] ��������������������������������������������� <ELECTRONICALLY SIGNED> ���������������������������������������� By: Parker Perez MD, [facility] ��������������������������������������������� 07/29/18 0732 45 45 Parker Perez MD, [facility] /EPI
== END 2018-07-28 19:19 | disposition home or self-care (01) ==
LOC: ER 15:48
PROVIDERS: Emergency Medicine
DX: J44.1 Chronic obstructive pulmonary disease with (acute) exacerbation (principal); D53.9 Nutritional anemia, unspecified; D72.829 Elevated white blood cell count, unspecified; R79.89 Other specified abnormal findings of blood chemistry; K21.9 Gastro-esophageal reflux disease without esophagitis; I48.91 Unspecified atrial fibrillation; G62.9 Polyneuropathy, unspecified; I25.2 Old myocardial infarction; Z95.5 Presence of coronary angioplasty implant and graft; Z85.01 Personal history of malignant neoplasm of esophagus; Z90.49 Acquired absence of other specified parts of digestive tract; Z79.899 Other long term (current) drug therapy

== ENCOUNTER 2018-07-29 12:30 | Inpatient (IN) | payer OTHER ==
[~2018-07-29] VITALS: Ht 177.8 cm; Wt 64.4 kg
[~2018-07-29 12:30] MED LIST changes: +AUGMENTIN 875-1 EACH PO; +PREDNISONE 20 M20 MG PO; +TESSALON PERLE100 MG PO; +VENTOLIN HFA 1818 GM INH
[2018-07-29 12:31] VITALS: BP 149/77
[2018-07-29 13:11] LABS: HEMATOCRIT 33.4 % (42.0-52.0); HEMOGLOBIN 10.7 gm/dL (14.0-18.0); MCH 33.7 pg (26.0-34.0); MCV 105.3 fL (80.0-100.0); PLATELET COUNT 167 thou/uL (150-400); RBC 3.17 mil/uL (4.50-6.00); RDW 15.6 % (10.5-14.5); WBC 29.6 thou/uL (4.0-11.0)
[2018-07-29 13:27] LABS: ANION GAP 7 mmol/L (7-16); BUN 32 mg/dL (7-18); CALCIUM 9.2 mg/dL (8.5-10.1); CHLORIDE 100 mmol/L (98-107); CO2 29 mmol/L (21-32); CREATININE 1.5 mg/dL (0.7-1.3); GLUCOSE 147 mg/dL (74-106); POTASSIUM 4.2 mmol/L (3.5-5.1); SODIUM 136 mmol/L (136-145)
[2018-07-29 13:35] LABS: BE(vivo) -1.8 mmol/L (-2 to +3); HCO3 23.3 mmol/L (22.0-26.0); PCO2 40.8 mmHg (35.0-45.0); PO2 88.3 mmHg (80.0-100.0); pH 7.374 (7.360-7.450); sO2 96.5 % (92.0-98.0)
[2018-07-29 13:37] LABS: ALBUMIN 3.4 g/dL (3.4-5.0); SGOT 39 U/L (15-37); SGPT 46 U/L (30-65); TOTAL BILIRUBIN 0.5 mg/dL (<0.1-1.0); TOTAL PROTEIN 7.8 g/dL (6.4-8.2); TROPONIN-I <0.06 ng/mL (<0.06)
[2018-07-29 13:49] LABS: ABSOLUTE NEUTROPHILS 26.9 thou/uL (1.4-8.2); ANISOCYTOSIS 1+; MACROCYTES 1+; POLYCHROMASIA OCCASIONAL
[2018-07-29 15:51] VITALS: BP 149/77
[2018-07-29 16:01] VITALS: BP 128/56
[2018-07-29 16:15] VITALS: BP 141/80
[2018-07-29 19:05] VITALS: BP 119/69
--- NOTE | 2018-07-29 20:09 | NUR ---
PT ARRIVED TO ROOM 359 FROM ED IN STABLE CONDITION AT 15:45. ADMISSION ASSESSMENT COMPLETED. A&O,X4. FROM HOME, TAKES CARE OF SELF INDEPENDENTLY. ROOM AIR. PACEMAKER IN PLACE. C/O ABD PAIN WITH COUGHING. CAME TO ED FOR COUGH AND INCREASING SOA, BREATHING TX IMPROVING SYMPTOMS. DAUGHTER AT BEDSIDE. CALLED DR. DEGROOT FOR ORDERS TO RESTART HOME MEDS. MEDS GIVEN ORDERED. PT IN STABLE CONDITION. END OF SHIFT.
[2018-07-30 04:08] VITALS: BP 144/71
[2018-07-30 05:19] LABS: HEMATOCRIT 26.3 % (42.0-52.0); MCH 34.1 pg (26.0-34.0); MCHC 32.5 g/dL (28.0-37.0); MCV 104.9 fL (80.0-100.0); RBC 2.51 mil/uL (4.50-6.00); RDW 15.1 % (10.5-14.5); WBC 16.3 thou/uL (4.0-11.0)
[2018-07-30 05:24] LABS: HEMOGLOBIN 8.6 gm/dL (14.0-18.0)
[2018-07-30 05:29] LABS: CALCIUM 8.4 mg/dL (8.5-10.1); CREATININE 1.1 mg/dL (0.7-1.3); POTASSIUM 3.6 mmol/L (3.5-5.1)
--- NOTE | 2018-07-30 06:27 | NUR ---
PT MAKING PROGRESS TOWARDS GOALS. "YESTERDAY AT THIS TIME, I WAS GASPING FOR AIR. I WAS MORE THAN JUST OUT OF BREATH." LUNGS DIMINISHED WITH FAINT WHEEZING. REPORTS SIGNIFICANT IMPROVEMENT AFTER RECEIVING NEBULIZER TREATMENTS.
--- NOTE | 2018-07-30 08:19 | EKG ---
[place] [address] [facility] [place] [address] ELECTROCARDIOGRAM REPORT Name: ANALIA VALENCIA Zaheer Room #: 359-P ADM IN M.R.#: [id number] ������������������ Admission: 07/29/18 ������������������ Attend Phys: Sean Aburto MD Discharge: ������������������ Date of : 42 Report #: [id number] ����������������������������������������������������������������� [id number] THIS REPORT FOR: //name// [facility] ED Test Date: 2018-07-29 Test Time: 12:54:53 Pat Name: ANALIA VALENCIA Department: Room: 359 Gender: M Assistant Shift Supervisor: ZACHARIAH : 1940 Requested By: Erin Croft Order Number: [id number] MD: Parker Perez Measurements Intervals [place] Rate: 73 P: NM: QRS: 56 QRSD: 101 T: 38 QT: 426 QTc: 470 Interpretive Statements Sinus rhythm with atrial premature complexes Nonspecific ST segment abnormality Compared to ECG 07/28/2018 16:46:15 No significant change was found Electronically Signed On 07-30-2018 8:19:17 CDT by Parker Perez [email or web address] ��������������������������������������������� <ELECTRONICALLY SIGNED> ���������������������������������������� By: Parker Perez MD, [facility] ��������������������������������������������� 07/30/18 0819 1254 1254 Parker Perez MD, [facility] /EPI
--- NOTE | 2018-07-30 08:47 | EKG ---
[place] [address] [address] [place] [address] ELECTROCARDIOGRAM REPORT Name: ANALIA VALENCIA Zaheer Room #: 359-P ADM IN M.R.#: [id number] ������������������ Admission: 07/29/18 ������������������ Attend Phys: Sean Aburto MD Discharge: ������������������ Date of : 42 Report #: [id number] ����������������������������������������������������������������� [id number] THIS REPORT FOR: //name// [facility] Test Date: 2018-07-30 Test Time: 07:39:37 Pat Name: ANALIA VALENCIA Department: Room: 359 Gender: M Sailmaker: jlambertz : 1940 Requested By: Erin Croft Order Number: [id number] MD: Parker Perez Measurements Intervals [place] Rate: 66 P: 142 ID: 168 QRS: 47 QRSD: 90 T: 34 QT: 464 QTc: 487 Interpretive Statements Sinus or ectopic atrial rhythm Nonspecific ST segment abnormality Borderline prolonged QT interval Compared to ECG 07/28/2018 16:46:15 No significant change was found Electronically Signed On 07-30-2018 8:47:06 CDT by Parker Perez [email or web address] ��������������������������������������������� <ELECTRONICALLY SIGNED> ���������������������������������������� By: Parker Perez MD, [facility] ��������������������������������������������� 07/30/18 0847 0739 0739 Parker Perez MD, [facility] /EPI
--- NOTE | 2018-07-30 08:47 | NUR ---
ASSESSMENT: CM REVIEWED CHART AND MET WITH PATIENT AT THE BEDSIDE. PT WAS ADMITTED WITH COPD EXACERBATION. PT REPORTS THAT HE LIVES IN A HOUSE ALONE. PT REPORTS HAVING ABOUT 3 STEPS WITH NO HANDRAILS TO ENTER THE HOME. PT REPORTS HE HAS A THREE STORY HOME BUT STATES HE ONLY STAYS ON THE MAIN LEVEL AND DOES NOT USE THE STEPS. PT REPORTS THAT HE AMBULATES INDEPENDENTLY BUT DOES HAVE A WALKER AT HOME HE DOES NOT USE. PT REPORTS HE IS INDEPENDENT WITH ADLS. CM DISCUSSED ROLE. PT REPORTS HE THINKS HE HAS HAD [facility] IN THE PAST BUT IS NOT CURRENT WITH THEM. PT DOES NOT FEEL HE WILL NEED HH AT DISCHARGE. CM WILL CONTINUE TO FOLLOW TO ASSIST NEEDED.
--- NOTE | 2018-07-30 13:25 | 2DMMODE ---
[facility] [place] [address] 2 D/M-MODE ECHOCARDIOGRAM Name: ANALIA VALENCIA Room #: 359-P [facility] IN ..#: [id number] ������������� Admission: 07/29/18 ������������� Attend Phys: Sean Aburto, Discharge: ��� ������������� ��� Date of : 44 Date of Service: 07/30/18 1325 �� Report #: [id number] �������� ��������������������������������������������[id number] THIS REPORT FOR: //name// APPROVED REPORT Study performed: 07/30/2018 09:07:53 EXAM: Comprehensive 2D, Doppler, and color-flow Echocardiogram Patient Location: Echo lab Room #: [facility] Status: routine BSA: 1.80 HR: 79 bpm BP: 144/71 mmHg Other Information Study Quality: Adequate Indications COPD Dyspnea CAD 2D Dimensions RVDd: 40.65 mm IVSd: 8.92 (7-11mm) LVOT Diam: 22.38 (18-24mm) LVDd: 41.73 mm PWd: 9.75 (7-11mm) Ascending Ao: 35.59 (22-36mm) LVDs: 27.22 (25-40mm) Aortic Root: 31.69 mm IVC: 14.00 mm Volumes Left Atrial Volume (Systole) Single Plane 4CH: 52.03 mL Single Plane 2CH: 25.49 mL LA ESV Index: 22.00 mL/m2 Aortic Valve AoV Peak Kraig.: 1.74 m/s AO Peak Gr.: 12.10 mmHg LVOT Max P.17 mmHg LVOT Max V: 1.14 m/s STEFANIE Vmax: 2.57 cm2 Mitral Valve E/A Ratio: 2.2 MV Decel. Time: 193.96 ms [facility] [address] [address] 2 D/M-MODE ECHOCARDIOGRAM Name: ANALIA VALENCIA Room #: 359-P [facility]#: [id number] ������������� Admission: 07/29/18 ������������� Attend Phys: Sean Aburto, Discharge: ��� ������������� ��� Date of : 44 Date of Service: 07/30/18 1325 �� Report #: [id number] �������� ��������������������������������������������[id number] E Max Kraig.: 1.06 m/s MV A Kraig.: 0.49 m/s MV PHT: 56.25 ms IVRT: 83.04 ms Pulmonary Valve PV Peak Kraig.: 1.12 m/s PV Peak Gr.: 5.06 mmHg Pulmonary Vein P Vein S: 0.25 m/s P Vein A: 0.16 m/s P Vein D: 0.63 m/s P Vein A Dur.: 73.8 msec P Vein S/D Ratio: 0.40 Tricuspid Valve TR Peak Kraig.: 3.08 m/s TR Peak Gr.: 37.89 mmHg PA Pressure: 43.00 mmHg Left Ventricle The left ventricle is normal size. There is normal LV segmental wall motion. There is normal left ventricular wall thickness. The left ventricular systolic function is normal. The left ventricular ejection fraction is within the normal range. LVEF is 60-65%. This study is not technically sufficient to allow evaluation of the LV diastolic function. Right Ventricle The right ventricle is normal size. The right ventricular systolic function is normal. Pacemaker lead is present in the right ventricle. Atria The left atrium size is normal. Right atrium is at the upper limits of normal. Pacemaker lead is present in the right atrium. Aortic Valve Aortic valve is calcified. Mild aortic regurgitation. There is no aortic valvular stenosis. Mitral Valve The mitral valve is normal in structure. Trace mitral regurgitation. No evidence of mitral valve stenosis. Tricuspid Valve The tricuspid valve is normal in structure. There is mild tricuspid regurgitation. Estimated PAP [address] [address] 2 D/M-MODE ECHOCARDIOGRAM Name: ANNIEANALIA Room #: 359-P [facility] IN [facility]#: [id number] ������������� Admission: 07/29/18 ������������� Attend Phys: Sean Aburto, Discharge: ��� ������������� ��� Date of : 44 Date of Service: 07/30/18 1325 �� Report #: [id number] �������� ��������������������������������������������[id number] Pulmonic Valve The pulmonary valve is normal in structure. There is no pulmonic valvular regurgitation. Great Vessels The aortic root is normal in size. IVC is normal in size and collapses >50% with inspiration. Pericardium There is no pericardial effusion. <Conclusion> LVEF is 60-65%. Mild aortic regurgitation. Trace mitral regurgitation. There is mild tricuspid regurgitation. Estimated PAP 43 mmHg. ��������������������������������������������� <ELECTRONICALLY SIGNED> ���������������������������������������� By: Kasi Kelley MD, [facility] ��������������������������������������������� 07/30/185 24 24 Kasi Kelley MD, [facility] /INF
[2018-07-30 15:39] VITALS: BP 121/79
[2018-07-30 18:54] VITALS: BP 126/77
--- NOTE | 2018-07-30 20:24 | NUR ---
care of pt assumed this am @ ~0700. pt noted to be up ad herminia w/ a steady, balanced and coordinated gait. pt receiving ivf's to lt ac/forearm access w/o concern. pt also consuming po fluids, but states he has not drank much po fluid today. pt void and stooling w/o concern. pt denies soa, but does co of a frequent and irritating cough w/ sputum production. his hope is to minimize the coughing tonight so that he can get a good night's sleep. pt is amazed at how much better he feels and breaths since his admission to the er. pt noted to be very social on his phone most of the day.
[2018-07-31 05:00] VITALS: BP 131/76
[2018-07-31 05:19] LABS: HEMATOCRIT 24.7 % (42.0-52.0); MCH 34.4 pg (26.0-34.0); MCHC 32.5 g/dL (28.0-37.0); MCV 105.8 fL (80.0-100.0); RBC 2.34 mil/uL (4.50-6.00); RDW 15.5 % (10.5-14.5); WBC 8.2 thou/uL (4.0-11.0)
[2018-07-31 05:39] LABS: CALCIUM 8.2 mg/dL (8.5-10.1); CREATININE 1.1 mg/dL (0.7-1.3); POTASSIUM 3.7 mmol/L (3.5-5.1)
--- NOTE | 2018-07-31 06:39 | NUR ---
ASSUMED CARE OF PT AT 1900. A&Ox4. VS STABLE, LUNG SOUNDS WHEEZY THROUGHOUT. STATED HE IS VERY CONCERNED ONE OF THE DOCS SAID HE HAD COPD SINCE HE HAS NEVER SMOKE. STEADY GAIT. DIFFICULTY SLEEPING. COOPERATIVE. PROGRESSING TOWARDS POC GOALS.
[2018-07-31 07:35] VITALS: BP 112/68
--- NOTE | 2018-07-31 15:54 | NUR ---
care of pt assumed this am @ ~0700. pt in good spirits today, as he heard from dr. godinez that he will be dc'd tomorrow. pt up ad herminia w/ a steady, balanced and coordinated gait. pt ivf's dc'd today, as pt has adequate po intake and good food intake, specializing his meals w/ dietary. pt co coughing frequently w/ no sputum production. pt denies any co pain and no n/v/d. pt w/ several visitors at .
[2018-07-31 16:25] VITALS: BP 106/69
--- NOTE | 2018-07-31 17:46 | NUR ---
report called to Tanya/ALOK on . pt's belongings gathered by wind tunnel engineer. pt informed of transfer to room 453. pt anticipated dc tomorrow per dr. godinez.
[2018-07-31 19:20] VITALS: BP 115/56
--- NOTE | 2018-08-01 02:16 | NUR ---
patient aox4 makes needs known. patient is up at herminia.patient ambulates with steady gaits. patient has bruises on bue d/t being on blood thinners. patient denied pain or discomfort. patient has a productive cough, cough medication given per order. patient has wheezing this shift that is cleared with breathing treatment. patient in bed asleep at this time breathing regular and unlaboured.
[2018-08-01 04:28] VITALS: BP 138/85
[2018-08-01 08:26] LABS: FOLIC ACID 16.9 ng/mL (8.6-58.9)
[2018-08-01] MEDS ORDERED: LEVAQUIN 500 M500 M2 PO (11:25)
[2018-08-01] MEDS ORDERED: IPRAT-ALBUT 0.5-3 ML INH (11:26)
[2018-08-01] MEDS ORDERED: GUAIFEN-CODEINE10 ML PO (11:27)
[2018-08-01 11:55] VITALS: BP 138/85
--- NOTE | 2018-08-01 14:12 | NUR ---
PT STABLE THROUGHOUT SHIFT. PT DISCHARGED HOME. PT GIVEN RX'S AND DC INSTRUCTIONS. PT LEFT UNIT VIA WHEELCHAIR TO PRIVATE VEHICLE.
== END 2018-08-01 14:15 | disposition home or self-care (01) | DRG 177 ==
LOC: ER 12:30 → 3W 13:26 → EROBS 13:26 → 3W 16:01 → 4W 07-31 17:57
PROVIDERS: Physician Assistant; ADMIT Family Medicine
DX: J69.0 Pneumonitis due to inhalation of food and vomit (principal); N17.0 Acute kidney failure with tubular necrosis; J44.1 Chronic obstructive pulmonary disease with (acute) exacerbation; J44.0 Chronic obstructive pulmonary disease with (acute) lower respiratory infection; K21.9 Gastro-esophageal reflux disease without esophagitis; I48.91 Unspecified atrial fibrillation; G62.9 Polyneuropathy, unspecified; R09.02 Hypoxemia; D64.9 Anemia, unspecified; Z79.51 Long term (current) use of inhaled steroids; Z79.899 Other long term (current) drug therapy; Z90.49 Acquired absence of other specified parts of digestive tract; Z95.1 Presence of aortocoronary bypass graft; Z95.0 Presence of cardiac pacemaker
CPT/HCPCS: 10045; 10879

== ENCOUNTER 2018-09-27 10:03 | Inpatient (IN) | payer OTHER ==
[~2018-09-27] VITALS: Ht 177.8 cm; Wt 68.5 kg
[2018-09-27] VITALS (28 sets, daily range): BP systolic 50–179; BP diastolic 29–94
[~2018-09-27 10:03] MED LIST changes: +GUAIFEN-CODEINE10 ML PO; +IPRAT-ALBUT 0.5-3 ML INH; +LEVAQUIN 500 M500 M2 PO; +PREDNISONE 10 M10 MG PO
[2018-09-27 13:28] LABS: BE(vivo) -5.7 mmol/L (-2 to +3); HCO3 23.2 mmol/L (22.0-26.0); PCO2 63.1 mmHg (35.0-45.0); PO2 246.9 mmHg (80.0-100.0); sO2 99.4 % (92.0-98.0)
[2018-09-27 13:43] LABS: pH 7.183 (7.360-7.450)
[2018-09-27 16:02] LABS: HEMATOCRIT 36.3 % (42.0-52.0); HEMOGLOBIN 11.5 gm/dL (14.0-18.0); MCH 32.8 pg (26.0-34.0); MCHC 31.6 g/dL (28.0-37.0); MCV 103.6 fL (80.0-100.0); RBC 3.5 mil/uL (4.50-6.00); RDW 16.3 % (10.5-14.5)
[2018-09-27 16:11] LABS: BE(vivo) -9.1 mmol/L (-2 to +3); HCO3 17.2 mmol/L (22.0-26.0); PCO2 38.6 mmHg (35.0-45.0); sO2 95.3 % (92.0-98.0)
[2018-09-27 16:12] LABS: pH 7.266 (7.360-7.450)
[2018-09-27 16:17] LABS: ALBUMIN 2.8 g/dL (3.4-5.0); TOTAL BILIRUBIN 0.7 mg/dL (<0.1-1.0); TOTAL PROTEIN 6.3 g/dL (6.4-8.2)
[2018-09-28] VITALS (65 sets, daily range): BP systolic 87–156; BP diastolic 43–77
[2018-09-28 05:04] LABS: HEMOGLOBIN 9.7 gm/dL (14.0-18.0); MCV 106.4 fL (80.0-100.0)
[2018-09-28 05:08] LABS: HEMATOCRIT 31.2 % (42.0-52.0); MCH 32.9 pg (26.0-34.0); RBC 2.93 mil/uL (4.50-6.00); RDW 16.9 % (10.5-14.5)
[2018-09-28 05:15] LABS: BE(vivo) -11.6 mmol/L (-2 to +3); HCO3 14.2 mmol/L (22.0-26.0); PCO2 31.9 mmHg (35.0-45.0); sO2 98.6 % (92.0-98.0)
[2018-09-28 05:16] LABS: pH 7.267 (7.360-7.450)
[2018-09-28 05:19] LABS: CALCIUM 7.3 mg/dL (8.5-10.1); CREATININE 1.3 mg/dL (0.7-1.3)
[2018-09-28 05:22] LABS: WBC 49.3 thou/uL (4.0-11.0)
--- NOTE | 2018-09-28 08:46 | HC ---
[facility] [place] [address] CONSULTATION Name: ANALIA VALENCIA Room #: [facility] IN .R.#: [id number] Admission: 09/27/18 Attend Phys: Toñito Dawkins MD Discharge: Date of : 42 Report #: [id number] THIS REPORT FOR: //name// CC: Toñito Aburto DATE OF SERVICE: 09/27/2018 REFERRING PHYSICIAN: Dr. Sean Aburto. REASON FOR REFERRAL: Acute respiratory distress. HISTORY OF PRESENT ILLNESS: The patient is a 78-year-old white male, who developed aspiration following a procedure. A Pulmonary consultation was requested. The patient apparently had a colonoscopy earlier today. Post-procedure, developed emesis and apparently had aspirated. He was placed on O2 and BiPAP in the recovery. He was then transferred to the ICU. In the ICU, the patient became progressively distressed, hypoxic. A code blue was called. The patient was subsequently intubated by Dr. Rosenberg from the ER. An 8 mm ET tube was placed. Portable chest x-ray post-intubation shows extensive right-sided infiltrates. ET tube is approximately 3 cm above the imelda. Small right-sided pleural effusion is seen. Currently, the patient is intubated, no history is able to be obtained. PAST MEDICAL HISTORY: Notable for coronary artery disease, undergoing coronary artery bypass surgery, history of esophageal cancer, undergoing surgery with chemo and radiation, status post permanent pacemaker placement, past history of lung biopsy, atrial fibrillation, gastroesophageal reflux disease, iron deficiency anemia, peripheral neuropathy, nephrolithiasis, status post stent placement in the past, history of transient ischemic attack without residual neurologic effects. Past history of cholecystectomy. ALLERGIES: None noted. HOME MEDICATIONS: Include Pradaxa 150 mg p.o. b.i.d., sotalol 120 mg p.o. b.i.d., prednisone 10 mg once a day, iron sulfate 325 mg once a day, omeprazole 40 mg once a day, Zantac 150 mg p.o. b.i.d., multivitamins once a day, tramadol 50 mg once a day, Sonata, albuterol MDI 2 puffs p.r.n., nebulized albuterol q.i.d. q 4 hours p.r.n. FAMILY HISTORY: Noncontributory. [address] [address] CONSULTATION Name: CHRIS VALENCIACHAPARRITA Schwab Room #: 247-P [facility] IN ..#: [id number] Admission: 09/27/18 Attend Phys: Toñito Dawkins MD Discharge: Date of : 42 Report #: [id number] SOCIAL HISTORY: Nonsmoker, no prior history of alcohol use. REVIEW OF SYSTEMS: Deferred as the patient is intubated. PHYSICAL EXAMINATION: GENERAL: He is now intubated and sedated. VITAL SIGNS: Temperature, he is afebrile, blood pressure pending, but hemodynamically he has been stable throughout the code blue. HEENT: Normocephalic, atraumatic. He is orally intubated. NECK: Supple, without lymphadenopathy or thyromegaly. CHEST: Breath sounds are good. Few scattered crackles in the left lung field. No wheezes. CARDIOVASCULAR: Normal S1, S2. There are no murmurs or gallop. There is no JVD, no carotid bruit. Pulses are 2+/4+ bilaterally. ABDOMEN: Soft, nontender, no organomegaly or masses felt. GENITOURINARY: Deferred. RECTAL: Deferred. EXTREMITIES: There is no edema, cyanosis or clubbing. LABORATORY DATA: Chest x-ray as mentioned above. Arterial blood gas revealed pH 7.26, pCO2 of 38, pO2 86 on FiO2 100%. Electrolytes earlier today were grossly unremarkable other than liver function test mildly abnormal. WBC 23,000, hemoglobin 11.5. IMPRESSION: 1. Acute hypoxic respiratory failure in this 78-year-old white male due to aspiration. 2. Extensive right-sided infiltrate, aspiration pneumonia. 3. Acid base disorder, now with metabolic acidosis due to above. Monitor closely. 4. History of chronic obstructive pulmonary disease. 5. History of coronary artery disease with past history of coronary artery bypass surgery. 6. Paroxysmal atrial fibrillation. 7. History of generalized weakness. 8. Remote history of esophageal cancer, undergoing surgical resection with chemo and radiation. RECOMMENDATION: We will continue mechanical ventilation, wean O2 for saturation 98%. May need to increase PEEP given marginal PaO2 on 100% FiO2. Broad-spectrum antibiotic is recommended, especially to cover aspiration including gram-negative and anaerobes. Bronchodilators and corticosteroids will also be initiated regarding his history of COPD. DVT and GI prophylaxes will be addressed. [address] [address] CONSULTATION Name: ANALIA VALENCIA Room #: [address] [place] [address] IN M.R.#: [id number] Admission: 09/27/18 Attend Phys: Toñito Dakwins MD Discharge: Date of : 42 Report #: [id number] Thank you for this consultation. <ELECTRONICALLY SIGNED> By: Will Yang MD 09/28/18 0846 1629 2357 Will Yang MD /nt
[2018-09-28 09:47] LABS: BE(vivo) -8.7 mmol/L (-2 to +3); HCO3 16.6 mmol/L (22.0-26.0); PCO2 33.4 mmHg (35.0-45.0); PO2 208.2 mmHg (80.0-100.0); sO2 99.3 % (92.0-98.0)
[2018-09-28 09:48] LABS: pH 7.313 (7.360-7.450)
[2018-09-28 11:07] LABS: BE(vivo) -9.4 mmol/L (-2 to +3); HCO3 15.9 mmol/L (22.0-26.0); PCO2 32.6 mmHg (35.0-45.0); PO2 179.7 mmHg (80.0-100.0); pH 7.306 (7.360-7.450); sO2 99.1 % (92.0-98.0)
[2018-09-29] VITALS (76 sets, daily range): BP systolic 85–129; BP diastolic 35–85
[2018-09-29 05:58] LABS: HEMATOCRIT 25.1 % (42.0-52.0); HEMOGLOBIN 8.1 gm/dL (14.0-18.0); MCH 33.1 pg (26.0-34.0); MCHC 32.2 g/dL (28.0-37.0); MCV 102.9 fL (80.0-100.0); RBC 2.44 mil/uL (4.50-6.00); RDW 16.3 % (10.5-14.5)
[2018-09-29 06:02] LABS: WBC 32.9 thou/uL (4.0-11.0)
[2018-09-29 06:13] LABS: CALCIUM 7.5 mg/dL (8.5-10.1); CREATININE 1.5 mg/dL (0.7-1.3); POTASSIUM 3.9 mmol/L (3.5-5.1)
[2018-09-30] VITALS (8 sets, daily range): BP systolic 118–138; BP diastolic 68–83
[2018-09-30 05:19] LABS: CALCIUM 7.9 mg/dL (8.5-10.1); CREATININE 1.3 mg/dL (0.7-1.3); POTASSIUM 3.4 mmol/L (3.5-5.1)
[2018-09-30 05:58] LABS: HEMATOCRIT 24.6 % (42.0-52.0); HEMOGLOBIN 7.8 gm/dL (14.0-18.0); MCH 32.2 pg (26.0-34.0); MCHC 31.5 g/dL (28.0-37.0); MCV 102.1 fL (80.0-100.0); RBC 2.41 mil/uL (4.50-6.00); RDW 16.7 % (10.5-14.5)
[2018-10-01] VITALS: BP 131/71
[2018-10-01 04:00] VITALS: BP 124/80
[2018-10-01 05:36] LABS: CALCIUM 8.5 mg/dL (8.5-10.1); CREATININE 1.2 mg/dL (0.7-1.3); POTASSIUM 3.4 mmol/L (3.5-5.1)
[2018-10-01 06:00] LABS: HEMATOCRIT 25.3 % (42.0-52.0); HEMOGLOBIN 8.2 gm/dL (14.0-18.0); MCHC 32.2 g/dL (28.0-37.0); MCV 102.3 fL (80.0-100.0); RBC 2.47 mil/uL (4.50-6.00); RDW 16.8 % (10.5-14.5); WBC 16.2 thou/uL (4.0-11.0)
[2018-10-01 08:01] VITALS: BP 136/78
[2018-10-01 12:00] VITALS: BP 121/78
[2018-10-01 12:58] VITALS: BP 121/78
[2018-10-01 13:00] VITALS: BP 108/87
[2018-10-01] MEDS ORDERED: AUGMENTIN 875-1 EACH PO (13:18)
== END 2018-10-01 18:15 | disposition home health service (06) | DRG 871 ==
LOC: GI 10:03 → ICU 14:53
PROVIDERS: Family Medicine; Internal Medicine Gastroenterology; Internal Medicine Pulmonary Disease; Nurse Practitioner; Specialist; ADMIT Internal Medicine
PROC: 0BH17EZ Insertion of Endotracheal Airway into Trachea, Via Natural or Artificial Opening (ICD-10-PCS; principal; 2018-09-27)
PROC: 5A1935Z Respiratory Ventilation, Less than 24 Consecutive Hours (ICD-10-PCS; principal; 2018-09-27)
PROC: 5A09357 Assistance with Respiratory Ventilation, Less than 24 Consecutive Hours, Continuous Positive Airway Pressure (ICD-10-PCS; 2018-09-27)
DX: A41.50 Gram-negative sepsis, unspecified (principal); J69.0 Pneumonitis due to inhalation of food and vomit; J96.02 Acute respiratory failure with hypercapnia; J96.01 Acute respiratory failure with hypoxia; E87.2 Acidosis; J44.9 Chronic obstructive pulmonary disease, unspecified; E78.5 Hyperlipidemia, unspecified; I25.10 Atherosclerotic heart disease of native coronary artery without angina pectoris; I48.0 Paroxysmal atrial fibrillation; D64.9 Anemia, unspecified; K21.0 Gastro-esophageal reflux disease with esophagitis; I49.5 Sick sinus syndrome; K57.90 Diverticulosis of intestine, part unspecified, without perforation or abscess without bleeding; G62.9 Polyneuropathy, unspecified; N20.0 Calculus of kidney; E87.8 Other disorders of electrolyte and fluid balance, not elsewhere classified; I95.9 Hypotension, unspecified; D72.823 Leukemoid reaction; K44.9 Diaphragmatic hernia without obstruction or gangrene; I25.2 Old myocardial infarction; Z92.21 Personal history of antineoplastic chemotherapy; Z85.01 Personal history of malignant neoplasm of esophagus; Z79.899 Other long term (current) drug therapy; Z95.1 Presence of aortocoronary bypass graft; Z90.49 Acquired absence of other specified parts of digestive tract; Z95.0 Presence of cardiac pacemaker; Z86.73 Personal history of transient ischemic attack (TIA), and cerebral infarction without residual deficits
CPT/HCPCS: 10078; 10203; 62110; 62900; 70005

== ENCOUNTER 2018-11-04 16:21 | Inpatient (IN) | payer OTHER ==
[~2018-11-04] VITALS: Ht 177.8 cm; Wt 65.3 kg
[~2018-11-04 16:21] MED LIST changes: -SOTALOL 120 MG120 M1 PO; +SOTALOL240 MG PO
[2018-11-04 19:18] VITALS: BP 104/63
--- NOTE | 2018-11-04 19:38 | NUR ---
ASSUMED CARE OF PATIENT AT 1815. PT A&OX4, VSS, C/O OF GENERAL PAIN. DOCTOR CALLED AND AWARE, ORDERS GIVEN. PT O2 SATS 91 %, PRN O2 2L NASAL CANNULA GIVEN. NO SIGNS OF DISTRESS. PATIENT DENIES SOA. PATIENT RESTING IN BED. REPORT TRANSFERRED TO ONCOMING SHIFT. WILL CONTINUE TO MONITOR.
[2018-11-04 20:40] LABS: INR 1.3; PROTIME 13.2 Seconds (9.3-11.4)
[2018-11-05] VITALS (12 sets, daily range): BP systolic 92–126; BP diastolic 57–75
--- NOTE | 2018-11-05 04:29 | NUR ---
DIRECT TRANSFER PT FROM [facility]. PT A&OX4. SATS IN THE UPPER 96 ON RA. PT STARTED ON FLUIDS AND ZOSYN. TYLENOL WAS GIVEN FOR GENERALIZED PAIN. FALL PACKAGE SIGNED AND IN PLACE. CALL [facility] WITHIN REACH. NO S/S OF DITRESS. WILL CONT TO MONITOR
[2018-11-05 05:42] LABS: HEMATOCRIT 26.5 % (42.0-52.0); HEMOGLOBIN 8.5 gm/dL (14.0-18.0); MCH 31.7 pg (26.0-34.0); MCHC 32.2 g/dL (28.0-37.0); MCV 98.1 fL (80.0-100.0); RBC 2.7 mil/uL (4.50-6.00); WBC 23.9 thou/uL (4.0-11.0)
--- NOTE | 2018-11-05 15:40 | NUR ---
chart review, pt back from procedure. pt daughter at bedside. pt is a & o x 3 with some forgetfulness. pt pleasant and able to make his needs know. noted pt on o2 per nc, no home oxygen. pt does have home nebulizer. intro to dcp, transition of care, hh and post acute rehab. " i not need hh, [facility] is good just not much to visit. live alone, 3 steps to enter the home and no stairs inside. drive vehicle. had falls at home. have walker don't use. just keep walker by bed in case need it. manage own medication. " only go rehab or hh if needed and last time almost and was able to still go home with hh. [place] [facility] re[facility] would be better, closer to family"/pt and daughter.
--- NOTE | 2018-11-05 20:45 | NUR ---
PT A&OX4, VSS, PAIN IN RIGHT BUTTOCK. PATIENT HAD I&D WITH DRAIN PLACED. PT BACK FROM PROCEDURE APPROX. 1400, PT REMAINED IN BED FOR TWO HOURS PER ORDERS AND DRAIN WAS TURNED TO OPEN POSITION AT 1700 PER ORDERS. NO DRAINAGE IN BAG AT THIS TIME. PATIENT UP TO BEDSIDE COMMODE AND HAS SAT IN HIS RECLINER TODAY. PT/OT CONSULTED. NO SIGNS OF DISTRESS, DENIES SOA, WILL CONTINUE TO MONITOR.
--- NOTE | 2018-11-06 04:17 | NUR ---
PATIENT IS ALERT AND ORIENTED X4 WITH SOME FORGETFULNESS. IVF INFUSING W/O COMPLICATION WELL ABX'S. ARROYO TO D/D WITH PINK DRAINAGE. DRAINAGE NOTED IN CATHETER OF BAG FROM [facility], HOWEVER, NONE TO BE MEASURED IN THE BAG AT THIS TIME. COOPERATIVE WITH CARE. MEDICATED FOR PAIN AT BEGINNING OF SHIFT BEFORE TRANSFERRING FROM CHAIR TO BED. WILL MONITOR.
[2018-11-06 04:55] VITALS: BP 98/61
[2018-11-06 05:26] LABS: HEMATOCRIT 26.3 % (42.0-52.0); HEMOGLOBIN 8.2 gm/dL (14.0-18.0); MCHC 31.2 g/dL (28.0-37.0); MCV 99.2 fL (80.0-100.0); RBC 2.66 mil/uL (4.50-6.00); RDW 17.5 % (10.5-14.5); WBC 37.9 thou/uL (4.0-11.0)
[2018-11-06 05:49] LABS: CALCIUM 8.1 mg/dL (8.5-10.1); CREATININE 1.3 mg/dL (0.7-1.3)
[2018-11-06 08:00] VITALS: BP 100/55
[2018-11-06 15:00] VITALS: BP 98/53
--- NOTE | 2018-11-06 19:57 | NUR ---
Assumed pt care this am, with a drain catheter that rendered 100cc of bright red liquid. Pt vs stable, stayed on his recliner for most of the day. Pt denied any pain and no signs of distress have been noted. POC followed, endorsed to the night nurse.
[2018-11-06 22:53] VITALS: BP 109/73
[2018-11-07 05:22] LABS: HEMATOCRIT 24.3 % (42.0-52.0); HEMOGLOBIN 7.7 gm/dL (14.0-18.0); MCH 31.2 pg (26.0-34.0); MCHC 31.8 g/dL (28.0-37.0); MCV 98.1 fL (80.0-100.0); RBC 2.47 mil/uL (4.50-6.00); WBC 25.6 thou/uL (4.0-11.0)
[2018-11-07 05:43] LABS: CALCIUM 8.2 mg/dL (8.5-10.1); CREATININE 1.2 mg/dL (0.7-1.3)
[2018-11-07 07:24] LABS: APTT 34.1 Seconds (24.5-32.8); FIBRINOGEN 559.9 mg/dL (210-360); INR 1.1; PROTIME 11.5 Seconds (9.3-11.4)
--- NOTE | 2018-11-07 08:52 | NUR ---
progress pt a/o x4 up with max 2 gb and wallker, sat in chair for first few hours of shift. drain intact draining dark bloody fluid, wiseman in place draining cloudy yellow urine. sat on bsc to have stool with no results. taking 2 mg morphine ivp with effect. a small amount of bright red rectal bleeding noted, disposable panties and a jonel pad placed to help monitor. notified, orders for labs and imaging by ir ordered. notified . Pt aware of situation and agreeable to poc.
[2018-11-07 10:27] VITALS: BP 96/54
[2018-11-07 15:31] VITALS: BP 96/58
--- NOTE | 2018-11-07 19:24 | NUR ---
Assumed pt care this am, noted scant rectal bleeding noted pad placed to monitor through out the day. No bleeding was noted from this am. Seen by Dr. Aburto and Rachael discussion was to send pt to the telemetry unit, other diagnostics and labs ordered. Pt refused to go to telemetry unit and discussed this with Dr. Aburto in the room, hemoglobin labs were drawn at noon hgb was 7.[address] Aburto, at this time there was no active bleed noted from the rectum. Pt kept in 4 south, pt verbalized he feels better and has a better appetite today. FC patent still draining red tinged urine that yealded 400 cc. Drain catheter drained 100cc of bright red fluid. Barried cream placed on the buttocks of the pt to prevent abrasion on the pad. CBC scheduled at 5am, results to be called to Dr. Cano and Lamonte. POC followed no other signs of distress have been noted, pt stayed on his recliner for most of the day. Endorsed to the night nurse.
[2018-11-07 19:47] VITALS: BP 108/67
[2018-11-07 23:12] VITALS: BP 112/64
--- NOTE | 2018-11-08 02:51 | NUR ---
ASSUMED CARE AROUND 1900. AXOX4. PERIRECTAL DRAIN INTACT, DRAINING BRIGHT RED BLOOD. SAMLL AROUND OF BLOOD FROM RECTUM NOTED. PT DENIES LIGHHEADEDNESS/DIZZINESS/PALPITATION/SWEATING AT THIS TIME. EDUCATED TO REPORT RIGHT AWAY IF ABOVE SYMPTOMS HAAPEN. NO S/S ACUTE DISTRESS NOTED OR REPORTED AT THIS TIME. WILL CONT TO MONITOR FOR ANY CHANGES IN CONDITION.
[2018-11-08 03:58] VITALS: BP 98/62
[2018-11-08 06:09] LABS: HEMOGLOBIN 6.9 gm/dL (14.0-18.0)
[2018-11-08 06:10] LABS: HEMATOCRIT 21.7 % (42.0-52.0); MCH 31.3 pg (26.0-34.0); MCV 97.8 fL (80.0-100.0); RBC 2.22 mil/uL (4.50-6.00); WBC 22.1 thou/uL (4.0-11.0)
[2018-11-08 06:48] LABS: CALCIUM 7.9 mg/dL (8.5-10.1); CREATININE 1.1 mg/dL (0.7-1.3); POTASSIUM 3.9 mmol/L (3.5-5.1)
[2018-11-08 07:20] VITALS: BP 126/66
[2018-11-08 08:22] VITALS: BP 105/66; BP 109/64
--- NOTE | 2018-11-08 10:22 | NUR ---
PT A&OX4, VSS, DENIES PAIN AT THIS TIME. PT CURRENTLY BEING INFUSED WITH PRBS. PT DENIES N/F, SOA, DIZZINESS, ITCHING. PT REMAINS AFEBRILE. NO RECTAL BLEEDING OBSERVED. PERIRECTAL DRAIN IN PLACE, BRIGHT RED BLOOD DRAINING. ARROYO REMAINS IN PLACE, NO REDNESS OBSERVED AT INSERTION, CATH PATENT, PINK URINE REMAINS. WILL CONTINUE TO MONITOR.
--- NOTE | 2018-11-08 11:05 | NUR ---
WOUND CARE CONSULT; A RIGHT HAND SKIN TEAR AND A RIGHT FOREARM SKIN TEAR WAS IDENTIFIED. BOTH STABLE SCABS. NO S/S OF INFECTION.THERE ARE DRAINS IN PLACE POSTERIOR AND RLE THAT ARE SECURED WITH ABD'S AND TAPE. THE PATIENT WAS ABLE TO STAND AND AMBULATE WITH THERAPY. RECOMMENDATIONS; CLEANSE WITH NS / OR WOUND CLEANSER, APPLY A BOARDER FOAM, CHANGE M/W/F PRN RN PRESENT
--- NOTE | 2018-11-08 13:57 | NUR ---
CM FOLLOWED UP WITH PT AT BEDSIDE THIS DAY PT ARE RECOMMENDING POST ACUTE CARE STAY. PT INDICATED HE WAS INTERESTED IN POSSIBLY GOING TO [facility] OR [facility]. CM ASKED LIAISON TO PUT IN CONSULT FOR 5N. PT TO HAVE ANOTHER TRANSFUSION THIS DAY. CM TO FOLLOW INDICATED WITH DC PLANNING.
[2018-11-08 14:37] VITALS: BP 165/87
[2018-11-08 15:04] VITALS: BP 118/45
[2018-11-08 19:20] VITALS: BP 108/75
[2018-11-08 20:03] LABS: HEMATOCRIT 27.9 % (42.0-52.0)
[2018-11-08 20:04] LABS: HEMOGLOBIN 8.9 gm/dL (14.0-18.0)
[2018-11-09 01:02] LABS: URINE BILIRUBIN NEGATIVE (Negative); URINE BLOOD 3+ (Negative); URINE CLARITY CLEAR; URINE COLOR YELLOW; URINE GLUCOSE-RANDOM* NEGATIVE (Negative); URINE KETONES NEGATIVE (Negative); URINE LEUKOCYTES-REFLEX NEGATIVE (Negative); URINE NITRITE-REFLEX NEGATIVE (Negative); URINE PROTEIN (DIPSTICK) NEGATIVE (Negative); URINE UROBILINOGEN 0.2 E.U./dl (0.2-1.0)
[2018-11-09 01:27] LABS: BACTERIA-REFLEX 1-9 Few /HPF (None Seen); CASTS None Seen /LPF (None Seen); MUCUS 0-3 Light strn/LPF (None Seen); SQUAMOUS 0-3 Few /LPF (0-3); URINE WBC-REFLEX 0-5 Rare /HPF (0-5)
[2018-11-09 01:28] LABS: CALCIUM OXALATE 0-3 Few /LPF (None Seen)
--- NOTE | 2018-11-09 03:45 | NUR ---
ASSUMED CARE OF PT @1900. PT A&OX4. PT AMBULATES WITH 1 ASSIST AND A WALKER. IV INPLACE AND PATENT. PT WAS GIVEN PRUNE JUICE ADDED WITH CURRENT REGIMEN, NO BM YET. DRESSINGS CLEAN, DRY AND INTACT. PT IS ON ANGEL BREATHING TX. CALL PENA WITHIN REACH. FALL PREC IN PLACE. NO S/S OF DISTRESS. WILL CONT TO MONITOR
[2018-11-09 08:00] VITALS: BP 105/73
[2018-11-09 08:37] LABS: HEMATOCRIT 29.2 % (42.0-52.0); HEMOGLOBIN 9.4 gm/dL (14.0-18.0); MCH 31.3 pg (26.0-34.0); MCHC 32.3 g/dL (28.0-37.0); RBC 3.01 mil/uL (4.50-6.00); RDW 16.9 % (10.5-14.5); WBC 17.2 thou/uL (4.0-11.0)
[2018-11-09 08:50] LABS: ALBUMIN 1.7 g/dL (3.4-5.0); CREATININE 1.3 mg/dL (0.7-1.3); POTASSIUM 3.7 mmol/L (3.5-5.1); TOTAL BILIRUBIN 0.6 mg/dL (<0.1-1.0); TOTAL PROTEIN 5.8 g/dL (6.4-8.2)
--- NOTE | 2018-11-09 12:27 | NUR ---
Tile Layer sent referral : Swing bed [facility] fax [phone], patient likely to discharge today or tomorrow. DP will follow up.
--- NOTE | 2018-11-09 13:19 | NUR ---
PT A&OX4, VSS, PAIN IN RIGHT BUTTOCK. PATIENT HAS MINIMAL DRAINAGE IN DRAIN BAG, BRIGHT RED BLOOD. DRESSING AT THE DRAIN ENTRANCE HAS SCANT AMOUNT OF SEROSANGUINOUS DRAINAGE AND DRESSING. PATIENT HAD PT AND OT TODAY. PT DENIES SOA AND CHEST. EDEMA IN BILAT LOWER, UPPER AND SCROTUM REMAINS, DOCTOR AWARE. WILL CONTINUE TO MONITOR.
[2018-11-09 13:54] VITALS: BP 85/71
--- NOTE | 2018-11-09 15:05 | NUR ---
PATIENT SEEN BY [facility] MENDIOLA NP WITH DR. CHANG. [facility] RECOMMENDING SNF PLACEMENT DUE TO PATIENT FUNCTIONAL LEVEL WITH AMBULATION IS TOO HIGH FOR ACUTE REHAB/5N. SUPERVISOR TUMBLING AND ROLLING INFORMED. THANK YOU FOR THIS REFERRAL.
--- NOTE | 2018-11-09 16:19 | NUR ---
CM FOLLOWED UP WITH PT AND HIS DTR THIS AFTERNOON AND THEY ASKED THAT REFERRAL BE SENT TO [facility] FOR POST ACUTE CARE STAY. REFERRAL SENT. CM TO FOLLOW INDICATED WITH DC PLANNING.
[2018-11-09 20:00] VITALS: BP 122/86
--- NOTE | 2018-11-10 03:01 | NUR ---
ASSUMED CARE OF PT @1900. PT A&OX4. PT WALKED AROUND THE UNIT TWICE BEFORE BED. PT IS STILL DUE TO VOID POST ARROYO REMOVAL. BLADDER SCAN @BEDTIME SHOWED 419CC BUT PT WAS UNABLE TO VOID. NO BM OVERNIGHT, BS ARE ACTIVE AND PT IS PASSING FLATUS. WILL CONT TO MONITOR PT FOR URINATION. NO S/S OF DISTRESS. CALL PENA WITHIN REACH
[2018-11-10 08:53] VITALS: BP 133/84
[2018-11-10 12:41] VITALS: BP 119/82
--- NOTE | 2018-11-10 14:20 | NUR ---
[facility] CAN ACCEPT PT ONCE MEDICALLY STABLE. CM NOTIFIED PHYSICAIN AND FAMILY. CM TO FOLLOW INDICATED WITH DC PLANNING.
[2018-11-10 21:01] VITALS: BP 130/80
--- NOTE | 2018-11-11 03:33 | NUR ---
assumed care of pt @1900. pt a&ox4. pt accidentally pull out his drain from his right buttocks. there is 50ml of serosanguineous fluid in the bag that hasn't been emptied for over a 12hr period. dr. godinez was notified. dressing to buttock changed. pt is no distress. v/s stable. fall prec in place. call escalante within reach. will cont to monitor
[2018-11-11 07:33] VITALS: BP 109/61
--- NOTE | 2018-11-11 09:51 | NUR ---
Nutrition: Assessed d/t LOS. Admitted for pelvic abscess. Hx COPD, CABG, iron deficiency anemia. Wound care also seeing this pt with notes indicating a R hand and R forearm skin tear. He is on a regular diet and on interview states, "I'm eating better than I ever have." There have been 0 meals recorded between Mon 11/08-11/10 to assess po intake, but prior to this pt was averaging nearly 75% of meals back on 11/06 and 11/07. Wt extremely stable, weighing 142# per 07/29/18 and 144# per 11/04/18 admit. He is now on po Lasix with EMR noting 2+ edema in extremities. RD encouraged protein focus, with goal of 1-2 sources at meals. Pt had no nutrition concerns or further needs. Low nutrition risk.
--- NOTE | 2018-11-11 09:54 | NUR ---
Nutrition: Assessed d/t consult received for weight change. Admit w/ fever, community acquired pneumonia. Pt was sitting up right, very pleasant during interview. He is on a regular diet. Didn't eat much Sun through Thu day, but finished nearly 100% breakfast this morning (aside from cereal). Pt already notes a big improvement in appetite level. Wt loss extremely minimal. States he weighed 182# prior to acuite illness and current 179# admit wt reflects a 3# insignificant wt loss (< 2% in 1 wk). Pt states gradually over a 2-3 yr period he is down 20#, but was very aware of what he was doing w/ his eating habits. At a very healthy wt, BMI 25 kg/m2. Expressed this to pt. He has no further nutrition needs or concerns. Keep as low nutrition risk.
--- NOTE | 2018-11-11 10:19 | NUR ---
PT UP IN BEDSIDE CHAIR. ALERT XS 4 NO PAIN NO RESP DISTRESS. ATE BREAKFAST AND TOOK AM MEDS.
[2018-11-11 16:46] VITALS: BP 105/59
--- NOTE | 2018-11-11 19:48 | NUR ---
PT HAS BEEN UP IN BEDSIDE CHAIR MOST OF DAY GETS UP AND WALKS TO BATHROOM WITH ROLLING WALKER AND STAFF HAS STEADY GAIT. WORKING WITH THERAPY. ALL DRESSINGS CHANGED ORDERED.
[2018-11-11 20:05] VITALS: BP 113/70
[2018-11-12 05:07] VITALS: BP 106/75
--- NOTE | 2018-11-12 05:20 | NUR ---
ASSUMED CARE OF PT AT 1900HRS. PT AOX4 AND LETS NEEDS BE KNOWN. FALL PRECAUTION IN PLACE. ABX TREATMENT CONTINUED. PT WAS ABLE TO SLEEP PART OF THE SHIFT. NO S/S OF ACUTE DISTRESS. WILL CONTINUE TO MONITOR.
[2018-11-12 08:07] LABS: HEMATOCRIT 32.2 % (42.0-52.0); HEMOGLOBIN 10.3 gm/dL (14.0-18.0); MCH 31.1 pg (26.0-34.0); MCHC 31.9 g/dL (28.0-37.0); MCV 97.4 fL (80.0-100.0); RBC 3.3 mil/uL (4.50-6.00); RDW 16.3 % (10.5-14.5); WBC 17.5 thou/uL (4.0-11.0)
[2018-11-12 08:23] LABS: CALCIUM 8.6 mg/dL (8.5-10.1); CREATININE 1.4 mg/dL (0.7-1.3); POTASSIUM 3.2 mmol/L (3.5-5.1)
[2018-11-12 09:32] VITALS: BP 109/65
--- NOTE | 2018-11-12 14:44 | NUR ---
PHYSICIAN INDICATED NO DC TODAY. HE INDICATED THAT PT MAY BE MEDICALLY STABLE OVER THE WEEKEND BUT IT WILL LIKELY BE THURSDAY. CM NOTIFIED [facility] AND THEY INDICATED THEY WOULD HAVE A BED OPEN THURSDAY OR THURSDAY. SHOULD PT BE READY FOR DC THURSDAY CALL [facility] AT . CM TO FOLLOW INDICATED WITH DC PLANNING.
[2018-11-12 16:12] VITALS: BP 98/63
[2018-11-12 19:59] VITALS: BP 107/64
--- NOTE | 2018-11-12 20:41 | NUR ---
Received awake on bed. Due medications given as prescribed, able to swallow meds w/o difficulty. A+O. With daughter at bedside. On room air. With abrasion on his L hand and L knee- wound cleaned, dressing changed and photo taken. With SL at L FA- intact and flushing well. With bilateral leg and arm edema- extremities kept elevated. Vital sings stable. Assisted in ADLs, eating and drinking. Falls risk- falls bundle in place, able to use the walker to go to the bathroom with moderate assist. Seen by Dr Aburto this AM, to give 1/2 bottle Mg citrate + 2 tablets colace now- given as prescribed; will inform Surgeon re: CT scan result. Pt seen by Dr Cano- no plans to do surgery as of now. Complained of pain, due PRN pain meds given as prescribed. No nausea and vomiting noted the whole shift.
--- NOTE | 2018-11-13 06:00 | NUR ---
ASSUMED CARE OF PT AT 1900HRS. PT AOX4 AND LETS NEEDS BE KNOWN. FALL PERCAUTION IN PLACE. ABX TREATMENT CONTINUED. PT REPORTED SOME PAIN AND WAS TREATED WITH PRN PAIN MEDS. PT HAD A SMALL BM THIS SHIFT. VSS AND NO S/S OF ACUTE DISTRESS. WILL CONTINUE TO MONITOR.
[2018-11-13 08:00] VITALS: BP 110/59
[2018-11-13 15:00] VITALS: BP 110/71
--- NOTE | 2018-11-13 20:17 | NUR ---
PATIENT ALERT AND ORIENTED AND UP WITH SBA TO BATHROOM. PATIENT WALKED WITH PT X2 AROUND NURSING UNIT. PATIENT HAD BM'S AT END OF SHIFT. DAUGHTER AND FRIENDS AT BEDSIDE THIS AFTERNOON. PATIENT INDICATED HE WOULD DISCHARGE TO [facility] UPON DC FOR ACUTE CARE.
[2018-11-14 04:18] VITALS: BP 106/74
--- NOTE | 2018-11-14 05:06 | NUR ---
ASSUMED CARE OF PT @1915. PT A&OX4. PT HAS BEEN HAVING FREQUENT SMALL BM THROUGHT OUT THE SHIFT. ABD FIRM AND PT C/O CRAMPING AND A LITTLE DISCOMFORT. PT AMBULATES WITH STANDBY ASSIST AND A WALKER TO THE BR. PT HAVE BEEN INCONT OF STOOL. PT WEARS PULLUP UNDERWEAR. PAIN C/O ABD AND BUTTOCKS PAIN AND WAS MEDICATED PER APR. PT WAS ABLE TO GET SOME SLEEP IN BETWEEN. NO S/S OF DISTRESS. FALL PRE IN PLACE. CALL LIGHT WITHIN REACH. WILL CONT TO MONITOR
[2018-11-14 05:35] LABS: HEMATOCRIT 30.3 % (42.0-52.0); HEMOGLOBIN 9.7 gm/dL (14.0-18.0); MCH 31.5 pg (26.0-34.0); MCHC 32.1 g/dL (28.0-37.0); MCV 98.1 fL (80.0-100.0); RBC 3.09 mil/uL (4.50-6.00); RDW 16.4 % (10.5-14.5); WBC 18.2 thou/uL (4.0-11.0)
[2018-11-14 05:51] LABS: CALCIUM 8.3 mg/dL (8.5-10.1); CREATININE 1.4 mg/dL (0.7-1.3); POTASSIUM 3.3 mmol/L (3.5-5.1)
[2018-11-14 08:12] VITALS: BP 103/76
--- NOTE | 2018-11-14 18:31 | NUR ---
PATIENT HAS HAD BOWEL [id number] THROUGH OUT THE DAY. STATES HE IS OVERWHELMED BY FREQUENT BATHROOM VISIT. BUT DOES UNDERSTAND NEED TO EMPTY BOWELS HE HAS BEEN CONSTIPATED OVER QUITE A FEW DAYS. HE IS ALERT ORIENTED X4. QUITE PLEASANT WITH CARES.
[2018-11-14 20:00] VITALS: BP 96/53
[2018-11-15 02:45] LABS: HEMATOCRIT 25.3 % (42.0-52.0); HEMOGLOBIN 8.1 gm/dL (14.0-18.0); MCH 31.7 pg (26.0-34.0); MCHC 32.2 g/dL (28.0-37.0); MCV 98.2 fL (80.0-100.0); RBC 2.57 mil/uL (4.50-6.00); RDW 16.6 % (10.5-14.5)
[2018-11-15 03:18] LABS: CREATININE 1.5 mg/dL (0.7-1.3); POTASSIUM 3.4 mmol/L (3.5-5.1)
--- NOTE | 2018-11-15 03:59 | NUR ---
assessment completed. pt a&ox4. frequent bm. hemorrhoid cream was ordered and administered to pt bottom. pt stated he could feel some relieve. pt said he was feeling depressed because he doesn't feel like he's getting better. pt stated that he wasn't sure of going to rehab because he's worried that they might not accept him because he's still stooling. education was done. pt recieved a dose of morphine for pain in his buttocks area and abd. fall prec in place. callbell within reach. no s/s of distress. will cont to monitor
[2018-11-15 08:00] VITALS: BP 108/65
[2018-11-15 15:00] VITALS: BP 116/64
[2018-11-15] MEDS ORDERED: FLOMAX0.4 MG PO (16:13)
[2018-11-15] MEDS ORDERED: ACETAMINOPHEN325 M1 PO (16:16)
[2018-11-15] MEDS ORDERED: PREDNISONE 10 M10 MG PO (16:16)
[2018-11-15] MEDS ORDERED: ZOSYN 3.3753.375 GM IV (16:49)
--- NOTE | 2018-11-15 16:58 | NUR ---
delmer faxed Discharge papers to [facility] patient to dc today, CHADD/Patricia arranged transportation and let family and unit know.
--- NOTE | 2018-11-15 18:23 | NUR ---
ASSUMED CARE OF PATIENT AT 0715, PATIENT ALERT AND ORIENTED, C/O DISCOMFORT WITH RECTUM AREA/HEMORROIDS. BLEEDING WHEN HAVING STOOLS, CREAM APPLIED. DR DEGROOT AWARE OF BLEEDING HEMG. 8.1 TODAY. PATIENT HAVING MULTIPLE STOOLS THIS SHIFT. PATIENT RECEIVED LASIX AND VOIDING W/O DIFFICULTY. PATIENT HAD LRFT FOREARM IV IN PLACE, REMOVED PRIOR TO DISCHARGE. KUB DONE, STOOL STILL STILL NOTED. DISCHARGE ORDER IN FOR PATIENT TO D/C TO [facility] AT 1800 TODAY. REPORT GIVEN TO JENNIE/MCKAYLA AT THE FACILITY.
[2019-01-20] MEDS ORDERED: PRADAXA150 MG PO (13:37)
[2019-01-20] MEDS ORDERED: PREDNISONE 10 M10 M1 PO (13:43)
[2019-01-20] MEDS ORDERED: SONATA5 M1 PO (13:44)
== END 2018-11-15 19:20 | DRG 871 ==
LOC: 4E 16:21 → 4W 18:58 → 4S 18:58 → 4W 11-15 11:17
PROVIDERS: Hospitalist; Surgery; ADMIT Family Medicine
DX: A41.9 Sepsis, unspecified organism (principal); J69.0 Pneumonitis due to inhalation of food and vomit; K65.1 Peritoneal abscess; K61.1 Rectal abscess; N17.9 Acute kidney failure, unspecified; D62 Acute posthemorrhagic anemia; S00.01XA Abrasion of scalp, initial encounter; I25.10 Atherosclerotic heart disease of native coronary artery without angina pectoris; J44.9 Chronic obstructive pulmonary disease, unspecified; K21.9 Gastro-esophageal reflux disease without esophagitis; I48.91 Unspecified atrial fibrillation; G62.9 Polyneuropathy, unspecified; D50.9 Iron deficiency anemia, unspecified; R29.6 Repeated falls; K57.90 Diverticulosis of intestine, part unspecified, without perforation or abscess without bleeding; D64.9 Anemia, unspecified; K59.00 Constipation, unspecified; K64.9 Unspecified hemorrhoids; N40.1 Benign prostatic hyperplasia with lower urinary tract symptoms; R33.8 Other retention of urine; Z66 Do not resuscitate; W18.39XA Other fall on same level, initial encounter; S30.0XXA Contusion of lower back and pelvis, initial encounter; Z79.899 Other long term (current) drug therapy; Z95.1 Presence of aortocoronary bypass graft; Z85.01 Personal history of malignant neoplasm of esophagus; Z92.3 Personal history of irradiation; Z92.21 Personal history of antineoplastic chemotherapy; Z90.49 Acquired absence of other specified parts of digestive tract; Z95.0 Presence of cardiac pacemaker; Z87.442 Personal history of urinary calculi; Z86.73 Personal history of transient ischemic attack (TIA), and cerebral infarction without residual deficits; Y93.89 Activity, other specified; Y92.89 Other specified places as the place of occurrence of the external cause; Y99.8 Other external cause status
CPT/HCPCS: 10047; 10102

== ENCOUNTER 2018-11-15 20:56 | Inpatient (IN) | payer OTHER ==
[~2018-11-15] VITALS: Ht 177.8 cm; Wt 60.8 kg
--- NOTE | ~2018-11-15 | D ---
[facility] [address] [place] [address] DISCHARGE SUMMARY Name: ANALIA VALENCIA Room #: 207-P [facility] IN M.R.#: [id number] Admission: 11/15/18 Attend Phys: Sean Aburto MD Discharge: 11/21/18 Date of : 44 Report #: [id number] THIS REPORT FOR: //name// CC: Sean Aburto DATE OF SERVICE: 11/21/2018 ADDENDUM See the previous hospital stay. We have extended his discharge by one day due to insurance not approving his transfer to [facility]. He had no complications during his stay, otherwise not listed above. By: [id number] Sean Aburto MD /nt
[~2018-11-15 20:56] MED LIST changes: +ACETAMINOPHEN325 M1 PO; +SOTALOL 120 MG120 M1 PO; -SOTALOL240 MG PO; +ZOSYN 3.3753.375 GM IV
[2018-11-15 20:58] VITALS: BP 135/51
[2018-11-15 21:20] LABS: ABSOLUTE NEUTROPHILS 12.3 thou/uL (1.4-8.2); BASOPHILS 0.2 % (0.0-2.0); EOSINOPHILS 0.2 % (0.0-3.0); HEMATOCRIT 24.7 % (42.0-52.0); HEMOGLOBIN 7.9 gm/dL (14.0-18.0); LYMPHOCYTES 10.8 % (24.0-44.0); MCH 31.4 pg (26.0-34.0); MCHC 31.9 g/dL (28.0-37.0); MCV 98.4 fL (80.0-100.0); MONOCYTES 5.1 % (1.0-8.0); PLATELET COUNT 312 thou/uL (150-400); POLYS 83.7 % (36.0-66.0); RBC 2.52 mil/uL (4.50-6.00); RDW 17.1 % (10.5-14.5); WBC 14.7 thou/uL (4.0-11.0)
[2018-11-15 21:38] LABS: CALCIUM 8.3 mg/dL (8.5-10.1); CREATININE 1.6 mg/dL (0.7-1.3); POTASSIUM 3.4 mmol/L (3.5-5.1)
[2018-11-15 21:40] LABS: INR 1.1; PROTIME 11.7 Seconds (9.3-11.4)
[2018-11-15 21:44] LABS: ALBUMIN 2.1 g/dL (3.4-5.0); TOTAL BILIRUBIN 0.2 mg/dL (<0.1-1.0); TOTAL PROTEIN 5.8 g/dL (6.4-8.2)
[2018-11-15 22:00] VITALS: BP 123/67
[2018-11-15 22:07] VITALS: BP 135/51
[2018-11-15 22:30] VITALS: BP 128/89
[2018-11-16] VITALS (13 sets, daily range): BP systolic 93–124; BP diastolic 56–71
[2018-11-16 05:06] LABS: HEMATOCRIT 22.8 % (42.0-52.0); HEMOGLOBIN 7.3 gm/dL (14.0-18.0); MCH 31.1 pg (26.0-34.0); MCHC 31.8 g/dL (28.0-37.0); MCV 97.7 fL (80.0-100.0); RBC 2.33 mil/uL (4.50-6.00); RDW 16.7 % (10.5-14.5); WBC 11.6 thou/uL (4.0-11.0)
--- NOTE | 2018-11-16 05:17 | NUR ---
PT ARRIVED TO UNIT APPROX 2230, TRANSFERRED FROM CART TO BED, ADMISSION AND ASSESSMENT COMPLETED, CONSENTS SIGNED. A&Ox4, PT REPORTS FEELING VERY ANXIOUS AND FRUSTRATED WITH BEING DISCHARGED AND READMITTED, STATES HE ALSO FEELS VERY DEPRESSED WITH HIS WHOLE SITUATION. DENIES SOB, NAUSEA, OR PAIN. REPORTS POOR APPETITE. HAS HAD MULTIPLE SMALL, SOFT/LOOSE STOOLS THAT ARE A DEEP RED COLOR. TROUBLE WITH URINARY RETENTION, BLADDER SCAN SHOWED >700, ONLY URINATING 100-150 INTO URINAL; OBTAINED ORDER TO PLACE ARROYO AND GIVE IV LASIX. RESUMED HOME MEDS. OBTAINED ORDER FOR SLEEPING MED. MULTIPLE SCRAPES/SCABS FROM FALLS AT HOME; SMALL SKIN TEAR ON RIGHT BUTTOCK NEAR WHERE THE DRAIN CAME OUT DURING PREVIOUS ADMISSION. NO OTHER CONCERNS, WILL CONTINUE TO MONITOR.
[2018-11-16 05:20] LABS: CALCIUM 8.4 mg/dL (8.5-10.1); CREATININE 1.5 mg/dL (0.7-1.3); POTASSIUM 3.1 mmol/L (3.5-5.1)
--- NOTE | 2018-11-16 07:46 | NUR ---
ASSESS PT WITH DR. DEGROOT THIS AM AND INSTRUCTED TO GIVE ATIVAN PO FOR ANXIETY AND TRUNSFUSE BLOOD. WILL CONTINUE TO ASSESS.
--- NOTE | 2018-11-16 11:25 | NUR ---
PT HAVING FREQUENT BLOODY STOOLS, IN FORM DARREL GAMEZ AND TAGED RED BLOOD CELL ORDERED. WILL CONTINUE TO ASSESS.
--- NOTE | 2018-11-16 12:04 | NUR ---
Assess due to RD consult received for pt with decreased appetite. Recent dc on 11/15 then readmitted several hours later due to rectal bleeding. Has hx internal hemorrhoids, diverticular disease, perirectal abscess. Had been eating well, then developed diarrhea. Has required transfusion. Pt ready to eat lunch and preferences called down. Would like to trial Ensure-ordered. Wt is up about 9 lb due to anasarca. Usual wt closer to 135 lb per pt. Low nutrition risk with appropriate nutrition interventions in place
--- NOTE | 2018-11-16 12:57 | NUR ---
Roll Tube Setter faxed SNF referral to [facility]. (Patient just left hospital yesterday and was readmitted last night) DP let Nita know to expect faxed referral and asked her if they are holding a bed for the patient. DP to follow up
--- NOTE | 2018-11-16 14:08 | NUR ---
PT OFF UNIT TO NUC MED.
--- NOTE | 2018-11-16 14:11 | EKG ---
[place] [address] [place] [address] ELECTROCARDIOGRAM REPORT Name: ANALIA VALENCIA Room #: 356-P ADM IN M.R.#: [id number] Admission: 11/15/18 Attend Phys: Sean Aburto MD Discharge: Date of : 44 Report #: [id number] THIS REPORT FOR: //name// [facility] ED Test Date: 2018-11-15 Test Time: 21:26:15 Pat Name: ANALIA VALENCIA Department: Room: 356 Gender: M Chief Librarian Branch: GERMAINE : 1940 Requested By: Ricardo Schroeder Order Number: [id number] MD: Keenan Uribe Measurements Intervals [place] Rate: 72 P: 252 TN: 152 QRS: 18 QRSD: 73 T: 213 QT: 498 QTc: 546 Interpretive Statements Sinus or ectopic atrial rhythm Low voltage, precordial leads Abnormal R-wave progression, early transition Nonspecific repol abnormality, diffuse leads Electronically Signed On 11-16-2018 14:11:18 CDT by Keenan Uribe [email or web address] <ELECTRONICALLY SIGNED> By: Keenan Uribe MD 11/16/18 1411 25 25 Keenan Uribe MD /DUYEN
[2018-11-16 14:12] LABS: HEMATOCRIT 27.2 % (42.0-52.0); HEMOGLOBIN 8.9 gm/dL (14.0-18.0); MCH 31.2 pg (26.0-34.0); MCHC 32.7 g/dL (28.0-37.0); MCV 95.3 fL (80.0-100.0); RBC 2.86 mil/uL (4.50-6.00); RDW 17.8 % (10.5-14.5); WBC 12.6 thou/uL (4.0-11.0)
--- NOTE | 2018-11-16 15:17 | NUR ---
INITIAL ASSESSMENT: Consult received due to multiple hospitalizations. CHADD reviewed chart and spoke with nursing and attending physician. Pt was discharged to [facility] yesterday and was readmitted last night with rectal bleeding. Pt currently off the unit having nuclear scan to find source of bleeding. Pt had blood transfusion earlier today. CHADD spoke with Leigh in admissions at [facility], who states that they are able to hold a bed for pt until tomorrow. [place] to their [place] facility. CHADD met with pt's dtr, Pedro Luis, at bedside. Introduced role of CHADD. Pt's preference for SNF is [facility]. CHADD provided SNF list in case [facility] does not have a bed available when pt is ready for discharge. supply chain planner to fax referral to [place] for review. CHADD is following to assist as needed with discharge planning.
--- NOTE | 2018-11-16 17:34 | NUR ---
PT WITH FREQUENT BLOODY BOWEL MOVEMENTS TODAY. MADE DR. GRAY, DR CH, AND CAROL JOHNSON NAPHTHALENE STILL OPERATOR AWARE OF THIS. PT HAD TAGGED RED BLOOD CELL TODAY. NUC MED INSTRUCTED ME TO PASS ONTO LADLE REPAIRER THAT IF PT HAS LARGE BLOOD BM TO CALL IN NUC MED FOR MOR IMAGING OTHERWISE NUC MED WILL DO MORE IMAGING IN THE AM. USING BARRIER CREAM ON PT'S BOTTOM AREA IT IS BECOMING MORE SORE FROM FREQUENT WIPING. WILL CONTINUE TO ASSESS.
[2018-11-16 18:21] LABS: MAGNESIUM 1.7 mg/dL (1.8-2.4)
[2018-11-16 18:59] LABS: HEMATOCRIT 28.1 % (42.0-52.0); HEMOGLOBIN 9.5 gm/dL (14.0-18.0)
--- NOTE | 2018-11-16 19:03 | NUR ---
CONTACT DR. CH AND MIKAYLA TO INFORM PT HAVING INCREASED AMOUNT OF BLOODY STOOL. INSTRUCTED TO TAKE PT TO ICU AND OBTAIN STAT H/H. STARTED PT ON REPLACEMNET PROTOCOL. TAG RED BLOOD CELL GAS NOT BEEN DICATED YET BY [employer]. CONTACT RADIOLOGY TO GET AHVANGIE OF RADILOGIST TO READ TAG RED BLOOD CELL. START NEW IV 20G RIGHT AC. WILL TRANSFER TO ICU ONCE BED IS ASIGNED.
--- NOTE | 2018-11-16 19:08 | NUR ---
SPOKE WITH [facility] WHO WILL COME IN TO OBTAIN MORE IMAGING.
--- NOTE | 2018-11-16 20:35 | NUR ---
Pt transferred from due to continued rectal bleeding, for increased monitoring of his condition. He is A/O x 4, is pale, and anxious, he reports generalized discomfort and that he hasn't rested for days. Other than his bloody stools, his assessment is benign, he is cachetic, and several areas of abrasions/bruises from falls prior to admission. Pt has a well-healed CABG scar, a permanent pacemaker to the left upper chest, A,V, AV paced, +2 edema to BLE. O2 via NC was added when it was noted that his sats were dropping to the mid 80's, LCTA, but he does sleep with his mouth open. Pt has been to Nuc Med, awaiting results, and pt is NPO for possible further testing/procedures in the morning. Will continue to provide comfort measures, prn meds as needed and monitor labs.
[2018-11-17] VITALS (46 sets, daily range): BP systolic 75–123; BP diastolic 37–92
[2018-11-17 00:49] LABS: HEMATOCRIT 25.9 % (42.0-52.0); HEMOGLOBIN 8.4 gm/dL (14.0-18.0); MCHC 32.7 g/dL (28.0-37.0); RBC 2.72 mil/uL (4.50-6.00); RDW 17.5 % (10.5-14.5); WBC 12.1 thou/uL (4.0-11.0)
--- NOTE | 2018-11-17 06:06 | NUR ---
Pt was able to rest through the night, despite his anxiety. Monitor reads A-Paced/SR, rates from 60's to 80's, very mild hypotension is noted, MAP has been WNL. O2 at 3 L was started when sats dropped when he was asleep, lungs are diminished. Bowel sounds are present, pt has been NPO since midnight for possible testing. Beltrán catheter is patent draining over 2650 ml's of clear yellow urine to DD.
[2018-11-17 07:01] LABS: HEMATOCRIT 27.9 % (42.0-52.0); HEMOGLOBIN 9.1 gm/dL (14.0-18.0); MCHC 32.6 g/dL (28.0-37.0); MCV 95.1 fL (80.0-100.0); RBC 2.93 mil/uL (4.50-6.00); RDW 17.5 % (10.5-14.5); WBC 11.6 thou/uL (4.0-11.0)
[2018-11-17 07:09] LABS: CALCIUM 8.9 mg/dL (8.5-10.1); CREATININE 1.5 mg/dL (0.7-1.3); POTASSIUM 3.1 mmol/L (3.5-5.1)
--- NOTE | 2018-11-17 07:12 | NUR ---
PATIENT TRANSFERRED TO ICU DUE TO A CHANGE IN MEDICAL STATUS. WILL NEED NEW OT ORDERS ONCE MEDICALLY STABLE.
--- NOTE | 2018-11-17 07:58 | NUR ---
Pt TRANSFERRED TO ICU. WILL PLACE ON HOLD AND AWAIT NEW ORDERS WHEN Pt IS APPROPRIATE FOR THERAPY
--- NOTE | 2018-11-17 10:41 | NUR ---
planner printed out and faxed previous records to [facility] (per Yang) request. Patient did not leave the chart copy envelope with facility when he was last discharged.
--- NOTE | 2018-11-17 11:40 | NUR ---
SW reviewed chart. Pt was transferred to ICU from 3W during shift superintendent caustic cresylate due to rectal bleeding. Pt to have flex-sig today. SW updated [facility] liaison, Kateryna, who will visit with pt and family today. [facility] does have a bed currently for pt. SW discussed with pt's dtr to provide update. Should [facility] not have a bed available when pt is ready for discharge, family would like a referral to be sent to [facility]. CHADD is following to assist as needed with discharge planning.
[2018-11-17 11:56] LABS: HEMATOCRIT 28.6 % (42.0-52.0); HEMOGLOBIN 9.4 gm/dL (14.0-18.0)
[2018-11-17 19:22] LABS: HEMATOCRIT 27.6 % (42.0-52.0); HEMOGLOBIN 8.7 gm/dL (14.0-18.0)
[2018-11-18] VITALS (33 sets, daily range): BP systolic 88–139; BP diastolic 47–77
[2018-11-18 03:34] LABS: HEMATOCRIT 31.3 % (42.0-52.0); MCH 30.2 pg (26.0-34.0); MCHC 32.1 g/dL (28.0-37.0); MCV 94.2 fL (80.0-100.0); RBC 3.32 mil/uL (4.50-6.00); RDW 16.4 % (10.5-14.5); WBC 13.3 thou/uL (4.0-11.0)
[2018-11-18 07:18] LABS: HEMATOCRIT 32.9 % (42.0-52.0); HEMOGLOBIN 10.4 gm/dL (14.0-18.0)
[2018-11-18 07:24] LABS: CALCIUM 8.7 mg/dL (8.5-10.1); CREATININE 1.4 mg/dL (0.7-1.3); POTASSIUM 3.4 mmol/L (3.5-5.1)
[2018-11-18 11:05] LABS: HEMATOCRIT 30.2 % (42.0-52.0); HEMOGLOBIN 9.9 gm/dL (14.0-18.0)
--- NOTE | 2018-11-18 12:56 | EKG ---
[address] [address] ELECTROCARDIOGRAM REPORT Name: ANALIA VALENCIA Room #: 247-P ADM IN M.R.#: [id number] Admission: 11/15/18 Attend Phys: Sean Aburto MD Discharge: Date of : 44 Report #: [id number] THIS REPORT FOR: //name// [facility] Test Date: 2018-11-18 Test Time: 12:37:28 Pat Name: ANALIA VALENCIA Department: Room: 247 P Gender: M Vocational Coordinator: MATA : 1940 Requested By: Neli Alvarez Order Number: [id number] MD: Keenan Uribe Measurements Intervals [place] Rate: 122 P: [place]: QRS: 45 QRSD: 84 T: 245 QT: 340 QTc: 485 Interpretive Statements Atrial fibrillation Probable LVH with secondary repol abnrm Borderline prolonged QT interval Baseline wander in lead(s) V2 Compared to ECG 11/15/2018 21:26:15 Ectopic atrial rhythm no longer present Electronically Signed On 11-18-2018 12:55:41 CDT by Keeann Uribe [email or web address] <ELECTRONICALLY SIGNED> By: Keenan Uribe MD 11/18/18 1255 1237 1237 Keenan Uribe MD /EPI
--- NOTE | 2018-11-18 14:07 | NUR ---
SW reviewed chart and spoke with attending physician. Pt to have flex-sig today and will have repeat CT tomorrow. Pt may be ready for discharge to [facility] tomorrow. CHADD updated [place] liaison, who confirms they are holding a bed for pt. SW updated pt's dtr, who is agreeable with discharge plan. CHADD is following to assist as needed with discharge planning.
[2018-11-18 15:33] LABS: HEMATOCRIT 33.4 % (42.0-52.0); HEMOGLOBIN 10.9 gm/dL (14.0-18.0)
[2018-11-18 19:58] LABS: HEMATOCRIT 34.4 % (42.0-52.0); HEMOGLOBIN 11.3 gm/dL (14.0-18.0)
[2018-11-18 23:12] LABS: HEMOGLOBIN 9.7 gm/dL (14.0-18.0)
[2018-11-19] VITALS (39 sets, daily range): BP systolic 84–141; BP diastolic 43–117
[2018-11-19 03:18] LABS: HEMATOCRIT 30.5 % (42.0-52.0); HEMOGLOBIN 9.9 gm/dL (14.0-18.0)
--- NOTE | 2018-11-19 03:31 | NUR ---
RECEIVED PT'S CARE AROUND 1920; PT. ON CHAIR; AOX4; REQUESTED TO USE THE TOILET; LIQUID LIGHT BROWN STOOL; ABLE TO AMBULATE WITH ONE PERSON ASSISSTANCE; DURING ASSESSMENT REQUESTED PRN ANTI-ANXIETY MEDICATION; MEDICATION GIVEN WITH HS MEDICATION; SBP ABOVE 90s; NO C/O PAIN; HAD BMs x 5; EARLY ON THE NIGHT; LIQUID, LIGHT BROWN; MALODOURUS; EDUCATED ABOUT NPO AFTER MIDNIGHT & ENEMA EARLY ON THE MORNING; ST. UNDERSTANDING; AFTER 2300 PT. ABLE TO REST WITH EYES CLOSED; CLOSE TO MIDNIGHT HAD ONE BM; NPO AFTER MIDNIGHT; ABLE TO REST THROUGH THE NIGHT; MONITORING; ASSESSMENT CHARGED; FOLLOWING POC; WILL PASS ON REPORT.
--- NOTE | 2018-11-19 11:44 | NUR ---
[facility] DA-124 [facility] TIMMY SPOKE WITH ERIBERTO IN ADM SHE RECEIVED FORM. DP TO FOLLOW.
--- NOTE | 2018-11-19 11:46 | NUR ---
CHADD reviewed chart and spoke with attending physician. Pt to have flex-sig today. Pt was unable to have the procedure completed yesterday. CHADD spoke with Leigh in admissions at [facility], who states they are able to accept pt over the weekend if he is ready. [facility] is holding a bed for pt, as the plan is for pt to transition to their [place] after his [place]F stay. CHADD updated pt's dtr, who is in agreement with discharge plan. If pt is ready over the weekend, staff to contact Surekha Galindo at [facility] to coordinate discharge. CHADD is following to assist as needed with discharge planning. [facility]-- Surekha Galindo: [phone]
--- NOTE | 2018-11-19 12:01 | NUR ---
FAXED CLINICAL UPDATE TO [facility] RECEIVED CONFIRMATION AND SPOKE WITH TREMAYNE IN ADM OF POSS DC OVER WEEKEND TO SKILLED AND THEN TRANSITION TO LTC. IF PT DISCHARGES OVER WEEKEND FAX DC ORDERS/SUMMARY TO [phone] AND CALL REPORT AND FOR TRANSPORT TO [phone].
[2018-11-19 19:27] LABS: HEMOGLOBIN 10.1 gm/dL (14.0-18.0)
[2018-11-20] VITALS (27 sets, daily range): BP systolic 73–125; BP diastolic 32–84
--- NOTE | 2018-11-20 03:24 | NUR ---
ASSUMED PT CARE AROUND 1900. A&OX4. DENIED ANY PAIN OR SOA. PT SAT UP IN CHAIR AT BEGINNING OF SHIFT. TOLERATED WELL. NO S/S BLEEDING NOTED THIS SHIFT. PT SLEPT MOST OF THE NIGHT. RESP EVEN AND UNLABORED. PT WAS A-PACED ON TELE MONITOR UNTIL AROUND 0130 WHEN HE WENT INTO AFIB WITH RATE 90S-100S. SINCE THEN, HE OCCASSIONALLY HE GOES IN AND OUT OF A-PACED OR AV-PACED TO AFIB. PT REMAINS ON AMIODARONE GTT PER ORDER. FALL PRECAUTIONS IN PLACE. PROGRESSING TOWARD POC GOALS. WILL CONTIUE TO MONITOR FURTHER.
[2018-11-20] MEDS ORDERED: LORAZEPAM 0.50.5 MG PO (08:21)
[2018-11-20] MEDS ORDERED: REMERON15 MG PO (08:21)
[2018-11-20 12:32] LABS: HEMOGLOBIN 11.1 gm/dL (14.0-18.0); MCH 31.7 pg (26.0-34.0); MCHC 32.6 g/dL (28.0-37.0); MCV 97.1 fL (80.0-100.0); RBC 3.51 mil/uL (4.50-6.00); RDW 17.2 % (10.5-14.5); WBC 11.5 thou/uL (4.0-11.0)
[2018-11-20 12:44] LABS: CALCIUM 8.8 mg/dL (8.5-10.1); CREATININE 1.5 mg/dL (0.7-1.3); POTASSIUM 4.1 mmol/L (3.5-5.1)
[2018-11-20 12:50] LABS: TOTAL BILIRUBIN 0.5 mg/dL (<0.1-1.0); TOTAL PROTEIN 6.1 g/dL (6.4-8.2)
--- NOTE | 2018-11-20 16:32 | NUR ---
BP NOTED TO BE LOW THIS AM. DR DEGROOT NOTIFIED AND ORDERS NOTED, PROVIDED WITH UPDATES TO LAB AND BP AFTER FLUID BOLUS. BP REMAINS IN THE 80'S. AFEBRILE. NO DIZZINESS NOTED WITH STANDING. SPOKE WITH KATHRYN AT [facility] IN [place] TO UPDATE HER TO THE PATIENT'S POTENTIAL DISCHARGE TOMORROW 11/21/18. FAMILY AND PATIENT UPDATED TO THE POC AND VERBALIZED UNDERSTANDING. REASSURANCE ALSO GIVEN. REPORT CALLED TO 2N CCU.
--- NOTE | 2018-11-20 17:24 | NUR ---
PATIENT TRANSFERRED TO 207 PER W/C WITH ELECTRIC MOTOR AND GENERATOR ASSEMBLER. NO C/O DIZZINESS OFFERED.
--- NOTE | 2018-11-20 18:09 | NUR ---
PATIENT ARRIVED FRON ICU IN W/C, ALERT AND ORIENTED X4 AND DENIES ANY CP OR DISCOMFORT. VS CHARTED PER COMPUTER AIDED DESIGN OPERATOR AND WILL CONTINUE WITH POC.
--- NOTE | 2018-11-21 00:07 | NUR ---
ASSESSMENTS CHARTED, MEDS GIVEN CHARTED. PATIENT IN [place], WANTS TO GO HOME IN MORNING. GOOD HISTORIAN OF RECENT EVENTS. VPACED ON TELEMETRY. UP WITH STANDBY ASSIST TO BATHROOM THEN TO BED. DENIES PAIN. FALL PRECAUTIONS IN PLACE. PLAN IS TO GO HOME IN THE MORNING IF HE BLOOD PRESSURE IS STABLE.
[2018-11-21 04:24] VITALS: BP 145/81
[2018-11-21 07:45] VITALS: BP 133/69
[2018-11-21 13:17] VITALS: BP 98/48
--- NOTE | 2018-11-21 15:09 | NUR ---
ASSUMED CARE AT SHIFT CHANGE, ALERT AND ORIENTED X4. VSS AND AFEBRILE. PATIENT DISCHARGED TO REHAB.
== END 2018-11-21 16:04 | DRG 377 ==
LOC: ER 20:56 → EROBS 20:58 → ICU 20:58 → 3W 20:58 → ICU 11-16 20:58 → 2N 11-20 17:32
PROVIDERS: Emergency Medicine; Internal Medicine Gastroenterology; ADMIT Family Medicine
PROC: 30233N1 Transfusion of Nonautologous Red Blood Cells into Peripheral Vein, Percutaneous Approach (ICD-10-PCS; principal; 2018-11-16)
PROC: 0W3P8ZZ Control Bleeding in Gastrointestinal Tract, Via Natural or Artificial Opening Endoscopic (ICD-10-PCS; 2018-11-19)
DX: K57.31 Diverticulosis of large intestine without perforation or abscess with bleeding (principal); J69.0 Pneumonitis due to inhalation of food and vomit; K65.1 Peritoneal abscess; K61.1 Rectal abscess; K62.6 Ulcer of anus and rectum; K26.4 Chronic or unspecified duodenal ulcer with hemorrhage; K62.5 Hemorrhage of anus and rectum; K21.9 Gastro-esophageal reflux disease without esophagitis; I48.91 Unspecified atrial fibrillation; G62.9 Polyneuropathy, unspecified; I25.10 Atherosclerotic heart disease of native coronary artery without angina pectoris; N50.1 Vascular disorders of male genital organs; F41.9 Anxiety disorder, unspecified; D64.9 Anemia, unspecified; D72.829 Elevated white blood cell count, unspecified; S00.01XA Abrasion of scalp, initial encounter; E87.6 Hypokalemia; J44.9 Chronic obstructive pulmonary disease, unspecified; K64.8 Other hemorrhoids; I50.9 Heart failure, unspecified; I95.9 Hypotension, unspecified; Z95.1 Presence of aortocoronary bypass graft; Z85.01 Personal history of malignant neoplasm of esophagus; Z90.49 Acquired absence of other specified parts of digestive tract; Z95.0 Presence of cardiac pacemaker; Z92.21 Personal history of antineoplastic chemotherapy; Z92.3 Personal history of irradiation; Z87.442 Personal history of urinary calculi; Z86.73 Personal history of transient ischemic attack (TIA), and cerebral infarction without residual deficits; Z23 Encounter for immunization
CPT/HCPCS: 10078; 10797; 10879; 62110; 62900; 85076

== ENCOUNTER → 2019-01-20 | Outpatient (CLI) | payer OTHER ==
[~2019-01-20] MED LIST changes: +LORAZEPAM 0.50.5 MG PO; +PREDNISONE 10 M10 M1 PO; +REMERON15 MG PO; -SOTALOL 120 MG120 M1 PO; +SOTALOL240 MG PO
[2019-01-20 13:00] VITALS: BP 125/71
[2019-01-20 14:55] VITALS: BP 124/62
[2019-01-20 15:05] VITALS: BP 124/62
--- NOTE | 2019-01-20 15:05 | NUR ---
PT HERE FOR 1ST OF TWO INJECTAFER INFUSIONS. REPORTS RECENT LOW ENERGY. HAS BEEN HOSPITALIZED RECENTLY WITH GI BLEEDING AND RECEIVED TRANSFUSIONS AT THAT TIME. TEACHING DONE. VERBALIZES UNDERSTANDING OF PLAN. TOLERATED INJECTAFER INFUSION WITHOUT INCIDENT, NO S/S REACTION, WATCHED FOR 30 MIN POST. DISMISSED IN STABLE CONDITION. SCHEDULED TO RETURN AGAIN NEXT WEEK.
== END ==
LOC: OPONC 11:56
DX: D50.0 Iron deficiency anemia secondary to blood loss (chronic) (principal); E44.1 Mild protein-calorie malnutrition
CPT/HCPCS: 95000

== ENCOUNTER → 2019-01-28 | Outpatient (CLI) | payer OTHER ==
[2019-01-28 12:50] VITALS: BP 127/71
[2019-01-28 14:45] VITALS: BP 114/51
--- NOTE | 2019-01-28 15:04 | NUR ---
IN FOR 2ND INJECTAFER INFUSION. STATED HAD NO SIDE EFFECTS FROM LAST WEEK'S INFUSION. IV STARTED IN LAC. TOLERATED INFUSION WITHOUT INCIDENT. POST VITAL SIGNS GOOD. OBSERVED FOR 30 MINUTES AND THEN DISMISSED IN STABLE CONDITION.
== END ==
LOC: OPONC 09:05
DX: D50.9 Iron deficiency anemia, unspecified (principal)
CPT/HCPCS: 95000

== ENCOUNTER → 2019-08-04 | Outpatient (CLI) | payer OTHER | LOC: SJCVCIMAG 07:28 | PROVIDERS: ATTEND Internal Medicine | DX: I08.3 Combined rheumatic disorders of mitral, aortic and tricuspid valves (principal); I11.9 Hypertensive heart disease without heart failure; I65.23 Occlusion and stenosis of bilateral carotid arteries; I25.810 Atherosclerosis of coronary artery bypass graft(s) without angina pectoris; I48.0 Paroxysmal atrial fibrillation; E78.5 Hyperlipidemia, unspecified; J44.9 Chronic obstructive pulmonary disease, unspecified; D50.0 Iron deficiency anemia secondary to blood loss (chronic); Z85.01 Personal history of malignant neoplasm of esophagus; Z79.899 Other long term (current) drug therapy; Z95.0 Presence of cardiac pacemaker; Z95.1 Presence of aortocoronary bypass graft ==

== ENCOUNTER → 2019-11-23 | Outpatient (CLI) | payer OTHER | LOC: RAD 12:29 | PROVIDERS: ATTEND Internal Medicine | DX: J18.9 Pneumonia, unspecified organism (principal); J98.11 Atelectasis ==

== ENCOUNTER → 2019-11-23 | Outpatient (CLI) | payer OTHER | LOC: SJCVC 11:43 | PROVIDERS: ATTEND Internal Medicine | DX: Z45.018 Encounter for adjustment and management of other part of cardiac pacemaker (principal); R94.31 Abnormal electrocardiogram [ECG] [EKG]; I10 Essential (primary) hypertension; I25.10 Atherosclerotic heart disease of native coronary artery without angina pectoris; I48.0 Paroxysmal atrial fibrillation; I65.23 Occlusion and stenosis of bilateral carotid arteries; D50.0 Iron deficiency anemia secondary to blood loss (chronic); Z95.1 Presence of aortocoronary bypass graft; Z79.899 Other long term (current) drug therapy; Z85.01 Personal history of malignant neoplasm of esophagus ==

== ENCOUNTER → 2020-07-25 | Outpatient (CLI) | payer OTHER | LOC: SJCVCIMAG 07:27 | PROVIDERS: ATTEND Internal Medicine | DX: I08.8 Other rheumatic multiple valve diseases (principal); I65.23 Occlusion and stenosis of bilateral carotid arteries; I11.9 Hypertensive heart disease without heart failure; I77.819 Aortic ectasia, unspecified site; R94.31 Abnormal electrocardiogram [ECG] [EKG]; I25.10 Atherosclerotic heart disease of native coronary artery without angina pectoris; I48.0 Paroxysmal atrial fibrillation; E78.5 Hyperlipidemia, unspecified; J43.9 Emphysema, unspecified; D50.0 Iron deficiency anemia secondary to blood loss (chronic); Z85.01 Personal history of malignant neoplasm of esophagus; K21.9 Gastro-esophageal reflux disease without esophagitis; Z95.0 Presence of cardiac pacemaker; Z95.1 Presence of aortocoronary bypass graft; Z79.82 Long term (current) use of aspirin; Z79.899 Other long term (current) drug therapy ==

== ENCOUNTER 2020-09-14 17:35 | Inpatient (IN) | payer OTHER ==
[~2020-09-14] VITALS: Ht 177.8 cm; Wt 57.2 kg
[2020-09-14 17:37] VITALS: BP 150/87
[2020-09-14 18:19] LABS: ABSOLUTE NEUTROPHILS 5.4 thou/uL (1.4-8.2); BASOPHILS 0.2 % (0.0-2.0); EOSINOPHILS 0.1 % (0.0-3.0); HEMATOCRIT 29.8 % (42.0-52.0); HEMOGLOBIN 9.6 gm/dL (14.0-18.0); LYMPHOCYTES 9.9 % (24.0-44.0); MCH 35.4 pg (26.0-34.0); MCHC 32.4 g/dL (28.0-37.0); MCV 109.1 fL (80.0-100.0); MONOCYTES 3.7 % (1.0-8.0); PLATELET COUNT 116 thou/uL (150-400); POLYS 86.1 % (36.0-66.0); RBC 2.73 mil/uL (4.50-6.00); RDW 17.9 % (10.5-14.5); WBC 6.3 thou/uL (4.0-11.0)
[2020-09-14 18:29] LABS: CALCIUM 9.2 mg/dL (8.5-10.1); CREATININE 1.4 mg/dL (0.7-1.3); POTASSIUM 4.6 mmol/L (3.5-5.1)
[2020-09-14 18:33] LABS: ALBUMIN 3.6 g/dL (3.4-5.0); DIRECT BILIRUBIN 0.4 mg/dL (<0.1-0.2); TOTAL BILIRUBIN 1.3 mg/dL (0.2-1.0); TOTAL PROTEIN 7.7 g/dL (6.4-8.2)
[2020-09-14 20:23] LABS: URINE BILIRUBIN NEGATIVE (Negative); URINE BLOOD 1+ (Negative); URINE CLARITY CLEAR; URINE COLOR YELLOW; URINE GLUCOSE-RANDOM* NEGATIVE (Negative); URINE KETONES NEGATIVE (Negative); URINE LEUKOCYTES-REFLEX NEGATIVE (Negative); URINE PROTEIN (DIPSTICK) NEGATIVE (Negative); URINE UROBILINOGEN 0.2 E.U./dl (0.2-1.0)
[2020-09-14 20:49] LABS: URINE NITRITE-REFLEX POSITIVE (Negative)
[2020-09-14 20:50] LABS: HYALINE CASTS 4-10 Moderate /LPF (None Seen); SQUAMOUS 0-3 Few /LPF (0-3)
[2020-09-14 20:51] LABS: CRYSTALS None Seen /LPF (None Seen); URINE RBC 3-10 Few /HPF (NONE SEEN); URINE WBC-REFLEX 0-5 Rare /HPF (0-5)
[2020-09-14 22:02] VITALS: BP 167/90
[2020-09-14 22:19] VITALS: BP 136/86
[2020-09-14 22:37] VITALS: BP 138/90
--- NOTE | 2020-09-14 23:37 | NUR ---
PT IS A/O X4 AND IS UP WITH ASSISTANCE USING HIS CANE. PT IS ON ROOM AIR. VSS AFEBRILE. IV IN PLACE AND INFUSING MAINTANCE FLUID. DENIES C/O PAIN OR DISCOMFORT AT THIS TIME. ADMISSION COMPLETE. FALL PRECAUTIONS IN PLACE, CALL LIGHT IS WITHIN REACH. WILL CONTINUE TO MONITOR.
[2020-09-15 07:12] LABS: CALCIUM 8.5 mg/dL (8.5-10.1); CREATININE 1.3 mg/dL (0.7-1.3); POTASSIUM 4.5 mmol/L (3.5-5.1)
[2020-09-15 08:16] VITALS: BP 133/90
--- NOTE | 2020-09-15 08:46 | EKG ---
[address] [place] [place] [address] ELECTROCARDIOGRAM REPORT Name: ANNIEANALIA Room #: 444-P ADM IN M.R.#: [id number] Admission: 09/14/20 Attend Phys: Sean Aburto MD Discharge: Date of : 42 Report #: [id number] 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 : 1940 Requested By: Johnny Yang Order Number: [id number] MD: Tanmay Lake Measurements Intervals [place] Rate: 86 P: 0 [place]: 188 QRS: -8 QRSD: 78 T: 253 QT: 435 QTc: 521 Interpretive Statements Ventricular-paced complexes No further rhythm analysis attempted due to paced rhythm Inferior infarct, age indeterminate Abnrm T, consider ischemia, anterolateral lds Prolonged QT interval Baseline wander in lead(s) V1 Compared to ECG 11/18/2018 12:37:28 Myocardial infarct finding now present Possible ischemia now present Atrial fibrillation no longer present Electronically Signed On 09-15-2020 8:45:55 CDT by Tanmay Lake [email or web address] <ELECTRONICALLY SIGNED> By: Tanmay Lake MD, FACC 09/15/20 0845 41 41 Tanmay Lake MD, [facility] /EPI
[2020-09-15 12:00] VITALS: BP 132/74
[2020-09-15 15:00] VITALS: BP 148/80
--- NOTE | 2020-09-15 17:06 | NUR ---
PATIENT ALERT AND ORINTED TIME X4, ON 2L OF O2, PROCEDURE DONE TODAY, TOLERATING DIET WELL, PAIN MEDICATION GIVEN PER MAR, VITAL SIGNS STABLE, AND AFBREILE. CALL LIGHT WITH IN REACH, WILL CONTINUE TO MONITOR.
--- NOTE | 2020-09-15 19:13 | O ---
[facility] [place] [address] [place] [address] OPERATIVE REPORT Name: ANALIA VALENCIA Room #: 444-P ADM IN M.R.#: [id number] Admission: 09/14/20 Attend Phys: Sean Aburto MD Discharge: Date of : 42 Report #: [id number] THIS REPORT FOR: cc: Sean Aburto MD, Neal A. MD Park,Dion Ruiz MD ~ DATE OF SERVICE: 09/15/2020 PREOPERATIVE DIAGNOSIS: Right ureteral stone. POSTOPERATIVE DIAGNOSIS: Right ureteral stone. PROCEDURE: Cystoscopy, right stent placement. SURGEON: Dion Bates MD. MOTOR EQUIPMENT COMMANDING OFFICER: Meg Pickens PA-C. ANESTHETIC: General. ESTIMATED BLOOD LOSS: None. COMPLICATIONS: None. FINDINGS: Right mid ureteral stone obstructing with hydronephrosis. DRAIN: 6 x 24 stent. Will stay in place until staged procedure can be done. INDICATIONS: This is a 80-year-old gentleman with right flank pain. Recurrent stone former. Now with another stone, it is 4 x 7 mm in his mid ureter on the right side. He has pain with it. Plans to go ahead and place a stent and then do a staged procedure. DESCRIPTION OF PROCEDURE: After informed consent was obtained, the patient was taken to the operating room suite where he was placed in the dorsal lithotomy position under anesthetic. The area of the genitalia was prepped and draped in standard fashion. A 21-Swazi rigid scope was placed per urethra into the bladder. Normal anterior urethra. Posterior urethra shows a nonobstructing prostate. Bladder itself was grossly unremarkable. Right UO was identified. A 0.035 wire was used to cannulate it. There was a persistent pyelogram from his previous CT with dye. Wire was successfully placed into the kidney. Over the wire, a 6 x 24 stent was placed. He had good curl in the kidney and down to the bladder. Bladder was drained, scope withdrawn. The patient tolerated the procedure well and was sent to recovery room in stable condition. [address] [address] OPERATIVE REPORT Name: ANALIA VALENCIA Room #: 444-P [facility] IN ..#: [id number] Admission: 09/14/20 Attend Phys: Sean Aburto MD Discharge: Date of : 42 Report #: [id number] We will set him up for outpatient staged stone removal. <ELECTRONICALLY SIGNED> By: Dion Bates MD 09/15/20 1913 [id number] [id number] Dion Bates MD /nt
[2020-09-15 19:15] VITALS: BP 126/64
--- NOTE | 2020-09-16 03:18 | NUR ---
ASSESSED AT START OF SHIFT. PT A&OX4 IV INTACT AND FLUIDS INFUSING. URINAL AT BEDSIDE. RED COLOR URINE NOTED. KETOROLAC FOR PAIN. PT ON 2L OF O2. FALL PREC IN PLACE AND CALL LIGHT AT REACH WILL CONT TO MONITOR. POSSIBLE DC TOMORROW.
[2020-09-16 04:07] VITALS: BP 136/80
[2020-09-16 08:09] VITALS: BP 134/80
[2020-09-16] MEDS ORDERED: HYDROCODON-ACE1 EAC7 PO (09:44)
[2020-09-16 09:52] VITALS: BP 134/80
== END 2020-09-16 16:04 | disposition home or self-care (01) | DRG 660 ==
LOC: ER 17:35 → EROBS 20:09 → 4S 22:22
PROVIDERS: Nurse Practitioner; ADMIT Family Medicine; ATTEND Family Medicine
PROC: 0T768DZ Dilation of Right Ureter with Intraluminal Device, Via Natural or Artificial Opening Endoscopic (ICD-10-PCS; principal; 2020-09-15)
DX: N13.30 Unspecified hydronephrosis (principal); N20.2 Calculus of kidney with calculus of ureter; N17.9 Acute kidney failure, unspecified; K21.9 Gastro-esophageal reflux disease without esophagitis; G62.9 Polyneuropathy, unspecified; J44.9 Chronic obstructive pulmonary disease, unspecified; I25.10 Atherosclerotic heart disease of native coronary artery without angina pectoris; D64.9 Anemia, unspecified; I48.91 Unspecified atrial fibrillation; Z20.822 Contact with and (suspected) exposure to COVID-19; Z95.1 Presence of aortocoronary bypass graft; Z85.01 Personal history of malignant neoplasm of esophagus; Z92.3 Personal history of irradiation; Z92.21 Personal history of antineoplastic chemotherapy; Z90.49 Acquired absence of other specified parts of digestive tract; Z95.0 Presence of cardiac pacemaker; Z86.73 Personal history of transient ischemic attack (TIA), and cerebral infarction without residual deficits; Z79.899 Other long term (current) drug therapy; Z72.89 Other problems related to lifestyle
CPT/HCPCS: 10100; 50010; 50101; 51620; 51767; 56674; 56815; 57160; 62110; 62900; 70005

== ENCOUNTER → 2021-01-24 | Outpatient (CLI) | payer OTHER | LOC: SJCVC 13:18 | PROVIDERS: ATTEND Internal Medicine | DX: R94.31 Abnormal electrocardiogram [ECG] [EKG] (principal); I44.0 Atrioventricular block, first degree; I25.10 Atherosclerotic heart disease of native coronary artery without angina pectoris; I48.0 Paroxysmal atrial fibrillation; I65.23 Occlusion and stenosis of bilateral carotid arteries; E78.5 Hyperlipidemia, unspecified; J43.9 Emphysema, unspecified; D50.0 Iron deficiency anemia secondary to blood loss (chronic); I12.9 Hypertensive chronic kidney disease with stage 1 through stage 4 chronic kidney disease, or unspecified chronic kidney disease; N18.6 End stage renal disease; Z85.01 Personal history of malignant neoplasm of esophagus; Z95.0 Presence of cardiac pacemaker; Z95.1 Presence of aortocoronary bypass graft; Z79.82 Long term (current) use of aspirin; Z79.899 Other long term (current) drug therapy ==

== ENCOUNTER 2021-03-10 05:52 | Inpatient (IN) | payer OTHER ==
[~2021-03-10] VITALS: Ht 177.8 cm; Wt 51.7 kg
[2021-03-10] VITALS (36 sets, daily range): BP systolic 92–143; BP diastolic 29–66
--- NOTE | ~2021-03-10 | O ---
[facility] [place] [place] [address] OPERATIVE REPORT Name: ANALIA VALENCIA Room #: 244-P [facility] IN M.R.#: [id number] Admission: 03/10/21 Attend Phys: Toñito Dawkins MD Discharge: Date of : 42 Report #: [id number] THIS REPORT FOR: cc: Sean Aburto MD, Neal A. MD Brown, Randal L. MD ~ NAME OF SURGEON: Dennis Marroquin MD PREOPERATIVE DIAGNOSIS: Upper gastrointestinal bleed. POSTOPERATIVE DIAGNOSIS: See below. ANESTHESIA USED: See monitored anesthesia notes. NAME OF PROCEDURE PERFORMED: EGD with control of bleeding. INDICATION FOR THE PROCEDURES: As above. FINDINGS: 1. AVMs in the proximal stomach just distal to surgical changes of gastric pull-up and esophagectomy. 2. Successful temporary cessation of bleeding using epinephrine as described. DESCRIPTION OF PROCEDURE: The risks and benefits of the procedure were explained in detail to prior to monitored anesthesia. The patient was placed in the left lateral decubitus position and the Olympus video endoscope was advanced into the oropharynx, esophagus, stomach, into the duodenum. Close inspection of the upper gastrointestinal mucosa was obtained upon slow withdrawal of the endoscope. The duodenum was normal in appearance without evidence of erosion or ulceration. The pylorus is patent without evidence of obstruction. Gastric antrum and gastric body were normal in appearance. Retroflexion allowed close inspection of the cardia and the fundus, which revealed post-esophagectomy and gastric pull-up surgical anatomy. The GE junction was approximately 22 cm from the incisors. In the area of the proximal stomach immediately distal to the anastomosis, there were several bleeding arteriovenous malformations. There seemed to be a vascular complex of venous malformations. There is no evidence of obvious portal gastropathy and/or varices. Using epinephrine, approximately 5 mm of 1:10,000 epinephrine were injected subcutaneously with improvement of the bleeding. There was no pulsatile bleeding. There was no obvious evidence of varices throughout. The patient tolerated the procedure well and was recovered in PACU. IMPRESSION: 1. Bleeding arteriovenous malformations proximal stomach as described (treated). [facility] [address] [place] [address] OPERATIVE REPORT Name: ANALIA VALENCIA Room #: 244-P [facility] IN ..#: [id number] Admission: 03/10/21 Attend Phys: Toñito Dawkins MD Discharge: Date of : 42 Report #: [id number] 2. I am uncertain to the source of these mucosal bleeding sources most likely secondary to arteriovenous malformations. A large hemangioma and/or portal hypertension could result in this as well. He does have a history of right-sided heart failure. At this point, I would proceed with imaging, CT abdomen and pelvis to exclude recurrent carcinoma or evidence of portal hypertension or varices. 3. Another consideration could be treatment with argon plasma bakery pastry internship, but further diagnostic studies are necessary to determine the origin and exclude significant pathology or risk. 4. Continue to monitor hemoglobin closely. 5. PPI intravenously. 6. Monitor in ICU until stable. 7. Clear liquid diet. 8. We will follow. By: [id number] Dennis Marroquin MD /nt
--- NOTE | ~2021-03-10 | HC ---
[facility] [place] [address] [place] [address] CONSULTATION Name: ANALIA VALENCIA Room #: 244-P [facility] IN M.R.#: [id number] Admission: 03/10/21 Attend Phys: Toñito Dawkins MD Discharge: Date of : 42 Report #: [id number] THIS REPORT FOR: cc: Sean Aburto MD, Neal A. MD Brown, Randal L. MD ~ DATE OF SERVICE: 03/10/2021 HISTORY OF PRESENT ILLNESS: The patient is a very pleasant 80-year-old male I have been asked to see for further evaluation of gastrointestinal hemorrhage. He has noted some hematemesis, but also black stools over the course of the last 24 hours. He was found to have a significantly reduced hemoglobin in the Emergency Department and I have been asked to see him in this regard. PAST MEDICAL HISTORY: Very complicated and includes esophageal carcinoma, status post remote resection. He has had coronary artery disease, cervical radiculopathy, COPD, gastritis, hematuria, gastric pull-up, esophageal cancer. The details of that are not available to me. Hyperlipidemia, kidney stones, AFib, perirectal abscess, ureteral stones. ALLERGIES: He is allergic to no medications. PAST SURGICAL HISTORY: He has had cholecystectomy, pacemaker placed. HOME MEDICATIONS: Hydrocodone, Atrovent, Flomax, Tylenol, iron, Zantac, multivitamin, Imdur, Ultram, sotalol, prednisone, Sonata. SOCIAL HISTORY: Documented in the chart. REVIEW OF SYSTEMS: Otherwise, negative for head, eyes, ears, nose, or throat complaints. Denies chest pain, chest palpitations, chest pressure, cough, shortness of breath, wheezing, genitourinary, musculoskeletal or neuropsychiatric complaints beyond that mentioned above. PHYSICAL EXAMINATION: VITAL SIGNS: Borderline blood pressure, tachycardia. HEENT: Nonicteric. NECK: No JVD, thyromegaly or bruits. CARDIOVASCULAR: Irregular. LUNGS: Clear anteriorly. ABDOMEN: Soft, nondistended, nontender. Normoactive bowel sounds. No hepatosplenomegaly. No stigmata of chronic liver disease. No abnormal masses or bruits. EXTREMITIES: No clubbing, cyanosis or edema. NEUROLOGIC: Deferred. [address] [address] CONSULTATION Name: ANALIA VALENCIA Room #: 244-P [facility] IN ..#: [id number] Admission: 03/10/21 Attend Phys: Toñito Dawkins MD Discharge: Date of : 42 Report #: [id number] RECTAL: Deferred. LABORATORY DATA: Presenting hemoglobin 4.5 that was repeated and 4.1; platelet count 107. PT 12.5. Serum chemistry notable for potassium 5.3, sodium 3.5, BUN 69, creatinine 1.3, glucose 112, bilirubin 0.6. AST, ALT normal. Albumin 2.6, total protein 6.0. X-ray reveals last no recent CTs. The CT done on 09/14/2020, last August, revealed cardiomegaly with chronic right-sided heart failure, prior CABG, right hydronephrosis, mild upper abdominal and pelvic ascites, surgical changes of esophagectomy and gastric pull-up, no evidence of recurrent carcinoma. ASSESSMENT AND PLAN: In summary, the patient presents with upper gastrointestinal bleed with a significantly reduced hemoglobin. We will proceed with upper endoscopy today and have recommendations to follow. At this point, I would start him on IV PPI therapy. Please see EGD results. Thank you for allowing us to participate in the care of this nice man. By: [id number] Dennis Marroquin MD /nt
[2021-03-10 06:33] LABS: MCH 37.2 pg (26.0-34.0); MCHC 32.4 g/dL (28.0-37.0); MCV 114.7 fL (80.0-100.0); PLATELET COUNT 107 thou/uL (150-400); RBC 1.21 mil/uL (4.50-6.00); RDW 16.4 % (10.5-14.5); WBC 8.9 thou/uL (4.0-11.0)
[2021-03-10 06:36] LABS: CALCIUM 8.5 mg/dL (8.5-10.1); CREATININE 1.3 mg/dL (0.7-1.3); HEMATOCRIT 13.9 % (42.0-52.0); HEMOGLOBIN 4.5 gm/dL (14.0-18.0); POTASSIUM 5.3 mmol/L (3.5-5.1)
[2021-03-10 06:42] LABS: ALBUMIN 2.6 g/dL (3.4-5.0); TOTAL BILIRUBIN 0.6 mg/dL (0.2-1.0)
[2021-03-10 06:43] LABS: APTT 24.3 Seconds (24.5-32.8); INR 1.15; PROTIME 12.5 Seconds (10.5-12.1)
--- NOTE | 2021-03-10 07:16 | NUR ---
PATIENT HAS BEEN 1:1 CARE SINCE HIS ARRIVAL MD PRESENTLY AT BEDSIDE REASSESSING
[2021-03-10 07:42] LABS: ABSOLUTE NEUTROPHILS 7.1 thou/uL (1.4-8.2); ANISOCYTOSIS 1+; HYPOCHROMASIA 2+; MACROCYTES 2+; PLATELET ESTIMATE NORMAL
--- NOTE | 2021-03-10 08:00 | NUR ---
LAB CALLED AT THIS TIME IN REGARDS TO HOW MUCH TIME LEFT UNTIL BLOOD WILL BE READY, LAB REPORTS APPROX 20 MINUTES.
[2021-03-10 08:20] LABS: MCH 36.6 pg (26.0-34.0); MCHC 31.7 g/dL (28.0-37.0); MCV 115.5 fL (80.0-100.0); RBC 1.11 mil/uL (4.50-6.00); RDW 17.8 % (10.5-14.5); WBC 8.4 thou/uL (4.0-11.0)
[2021-03-10 08:23] LABS: HEMATOCRIT 12.8 % (42.0-52.0); HEMOGLOBIN 4.1 gm/dL (14.0-18.0)
--- NOTE | 2021-03-10 08:57 | NUR ---
BLOOD TRANFUSION STARTED AT 0850. PT TOLERATING WELL. THIS RN AT BEDSIDE.
--- NOTE | 2021-03-10 10:03 | NUR ---
THIS RN GIVES REPORT TO GI LAB, GI LAB AT BEDSIDE TO TAKE PT FOR EGD. UNIT 1 OF PRBC COMPLETE, UNIT 2 BEGAN GI INSOLE AND HEEL STIFFENER TAKES PT. GI LAB TO DOCUMENT 15 MINUTE OF VITAL SIGNS. PT TRANSPORTED SAFELY ON STRETCHER. VSS.
--- NOTE | 2021-03-10 13:01 | EKG ---
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1940 Requested By: Francisco Javier Adam Order Number: [id number] MD: Parker Perez Measurements Intervals [place] Rate: 110 P: [place]: QRS: 55 QRSD: 79 T: 173 QT: 345 QTc: 467 Interpretive Statements Atrial fibrillation Nonspecific ST and T wave abnormality Compared to ECG 09/14/2020 17:42:51 Low QRS voltage now present Ventricular pacing is no longer present Electronically Signed On 03-10-2021 13:01:37 EXHIBIT BUILDER by Parker Perez [email or web address] <ELECTRONICALLY SIGNED> By: Parker Perez MD, [facility] 03/10/21 [phone] [id number] Parker Perez MD, FACC /EPI
--- NOTE | 2021-03-10 13:46 | NUR ---
PT ARRIVED TO ICU ACCOMPANIED BY NURSING STAFF FROM PACU. PT ALERT AND ORIENTED X3. PT HAD SECOND UNIT OF PRBC TRANSFUSING ON ARRIVAL TO ICU. PT HAD PROTONIX GTT INFUSING AT THE MOMENT. SKIN IS INTACT. SKIN CHECKED WITH ALOK KHANNA AT BEDSIDE. PT HAS A SCAB WOUND AT THE LEFT ELBOW. DAUGHTER DAVID WAS UPDATED ON THE PATIENT CONDITION AND WAS UPDATED ABOUT THE ICU VISITATION POLICY. URINARY CATHETER WAS INSERTED AND PT WAS CONNECTED TO ICU MONITORS. CONTINUE TO MONITOR PATIENT AT THIS MOMENT.
[2021-03-10 17:48] LABS: HEMATOCRIT 24.5 % (42.0-52.0)
[2021-03-10 18:25] LABS: HEMOGLOBIN 8.2 gm/dL (14.0-18.0)
[2021-03-11] VITALS (47 sets, daily range): BP systolic 98–148; BP diastolic 17–82
--- NOTE | 2021-03-11 03:28 | NUR ---
PATIENT CARE WAS ASSUMED AT SHIFT CHANGE. PATIENT WAS ASSESSED AND MEDS WHERE PASSED. PATIENT IS A PLEASENT MAN HE HAS BEEN NPO SINCE MIDNIGHT TO HAVE AN EGD DONE BY GI DUE TO HIS AVM. PATIENT HAS HAD NO EMESIS OR HEMOPTYSIS OR HEMATOCHEZIA. ROUNDS DONE. A BED BATH WAS GIVEN.THE BED IS IN A LOW AND LOCKED POSITION.
[2021-03-11 03:53] LABS: HEMATOCRIT 23.4 % (42.0-52.0); HEMOGLOBIN 7.9 gm/dL (14.0-18.0); MCH 31.9 pg (26.0-34.0); MCHC 33.7 g/dL (28.0-37.0); RBC 2.47 mil/uL (4.50-6.00); RDW 26.4 % (10.5-14.5); WBC 10.4 thou/uL (4.0-11.0)
[2021-03-11 03:55] LABS: MCV 94.8 fL (80.0-100.0)
[2021-03-11 04:06] LABS: CALCIUM 8.1 mg/dL (8.5-10.1); CREATININE 1.1 mg/dL (0.7-1.3); MAGNESIUM 2.1 mg/dL (1.8-2.4); POTASSIUM 4.5 mmol/L (3.5-5.1)
--- NOTE | 2021-03-11 08:00 | NUR ---
80-year-old male, from [facility] via EMS. complaint of hematemesis. He was feeling extremely weak and fell down yesterday. He reported he was on the ground for Signiant amount of time. Patient has history of esophageal cancer, he reports he is in remission. GI consulted. EGD. MEDICAL INTERPRETER he was living at home. few steps to enter his home. He has a cane and walker. Independent when he is feeling well. Daughter Pedro Luis Veronica # [phone]. Been to skilled rehab at [facility] in the past. [facility] in the past. He lives in [facility]. PCP Dr Aburto. Will cont. following as needed.
[2021-03-11 08:12] LABS: HEMATOCRIT 24.5 % (42.0-52.0); HEMOGLOBIN 8.2 gm/dL (14.0-18.0); MCH 31.6 pg (26.0-34.0); MCHC 33.6 g/dL (28.0-37.0); MCV 94.2 fL (80.0-100.0); RBC 2.6 mil/uL (4.50-6.00); RDW 25.7 % (10.5-14.5); WBC 10.2 thou/uL (4.0-11.0)
--- NOTE | 2021-03-11 09:03 | NUR ---
SPOKE WITH DAUGHTER, DAVID, VIA PHONE WITH PATIENT THIS AM AT 0800. DISCUSSED POC, PLAN FOR AFTERNOON EGD FOR RECHECK. VSS, 2-3L NC, PT STATES HE "FEELS WEAK". ABLE TO SIT AT BEDSIDE WITH OT, MINIMAL ASSIST. URINE APPEARING TEA COLORED, SLIGHTLY PINK TINGED, UA SENT TO LAB, DR PARKINSON NOTIFIED. Q6H H&H TRENDING UPWARD.
[2021-03-11 09:16] LABS: URINE BILIRUBIN NEGATIVE (Negative); URINE BLOOD 3+ (Negative); URINE CLARITY CLOUDY; URINE COLOR YELLOW; URINE GLUCOSE-RANDOM* NEGATIVE (Negative); URINE KETONES TRACE (Negative); URINE LEUKOCYTES-REFLEX TRACE (Negative); URINE NITRITE-REFLEX NEGATIVE (Negative); URINE PROTEIN (DIPSTICK) 1+ (Negative); URINE SPECIFIC GRAVITY 1.025 (1.005-1.035); URINE UROBILINOGEN 0.2 E.U./dl (0.2-1.0)
[2021-03-11 09:32] LABS: BACTERIA-REFLEX 1-9 Few /HPF (None Seen); CASTS None Seen /LPF (None Seen); CRYSTALS None Seen /LPF (None Seen); SQUAMOUS 0-3 Few /LPF (0-3); URINE RBC >20 Many /HPF (NONE SEEN); URINE WBC-REFLEX 0-5 Rare /HPF (0-5)
[2021-03-11 15:31] LABS: HEMATOCRIT 24.3 % (42.0-52.0); HEMOGLOBIN 7.9 gm/dL (14.0-18.0)
[2021-03-11 22:20] LABS: HEMATOCRIT 22.6 % (42.0-52.0); HEMOGLOBIN 7.4 gm/dL (14.0-18.0)
[2021-03-12] VITALS (26 sets, daily range): BP systolic 100–168; BP diastolic 40–142
--- NOTE | 2021-03-12 03:59 | NUR ---
Pt. has slept well during the night. Assisted to reposition for comfort and able to help turn from side to side. Chlorhexidine bath given. O2 at 2L/NC at beginning of shift with O2 sat up to 100%. No respiratory distress. RT titrated O2 off this am and he has been tolerating room air well with O2 sat in the upper 90's. 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 Incontinent of large tarry bm at shift change and none since. No active bleeding noted. H&H being monitored. IVF and protonix gtt. infusing. Tolerating clear liquids diet. Foam dressing on left elbow. Z guard applied to buttocks after bm incontinence. SCD's in place fro DVT prophylaxis.Pt. verbalized he is feeling much better. Making progress towards care plan goals.
[2021-03-12 05:09] LABS: HEMATOCRIT 21.3 % (42.0-52.0); HEMOGLOBIN 7.2 gm/dL (14.0-18.0); MCH 32.1 pg (26.0-34.0); MCHC 33.6 g/dL (28.0-37.0); MCV 95.8 fL (80.0-100.0); RBC 2.23 mil/uL (4.50-6.00); RDW 25.7 % (10.5-14.5); WBC 7.6 thou/uL (4.0-11.0)
[2021-03-12 05:39] LABS: CALCIUM 7.8 mg/dL (8.5-10.1); MAGNESIUM 1.9 mg/dL (1.8-2.4); POTASSIUM 4.3 mmol/L (3.5-5.1)
--- NOTE | 2021-03-12 13:27 | NUR ---
PT IS PROGRESSING TOWARDS DISCHARGE AT THIS TIME, RN SPOKE WITH HOSPITALIST REGARDING CURRENT H/H LEVELS, SCHEDULED FOR REDRAW AT 1600 TO EVALUATE. PT COMPLAINED OF ANXIETY AND INABILITY TO CATCH BREATH RELATED TO EVENT, PT COMMUNICATED THIS TO THE HOSPITALIST AND ATIVAN Q6H WAS ORDERED, QUICKLY AFTER ADMINSTRATION PT FOUND TO HAVE REST AND SLEEPING/DROWSY. PT SEEN BY PT/OT TODAY WAS ABLE TO AMBULATE WITH ONE PERSON ASSIST TO THE CHAIR, PROTONIX GTT REMAINS TO CONTINUE; IT WAS VERBALIZED BY THE PATIENT THAT HE HAS NOT FELT THIS WAY EVER AND FEELS THAT HE'S AT HIS WIT'S END, THAT HE WOULDN'T MIND GOING OUT LIKE THIS, PT AT THE TIME WAS AGITATED/ANXIOUS AND RN WILL ASK AGAIN ONCE PT ISN'T OVERTLY FRUSTRATED ABOUT HOW HE IS FEELING. ECHO IS BEING COMPLETED AT THIS TIME, PT DOES HAVE BOUTS OF HYPOTENSION, REMAINS ON ROOM AIR TOLERATING FINE, INCONTINENT TO BOWEL AT TIMES. CONTINUING TO MONITOR
--- NOTE | 2021-03-12 14:47 | 2DMMODE ---
[facility] [address] [place] [address] 2 D/M-MODE ECHOCARDIOGRAM Name: ANALIA VALENCIA Room #: 244-P ADM IN M.R.#: [id number] Admission: 03/10/21 Attend Phys: Toñito Dawkins MD Discharge: Date of : 42 Report #: [id number] THIS REPORT FOR: cc: Sean Aburto MD, Neal A. MD Lundgren,Parker Rubio MD [facility] ~ APPROVED REPORT Study performed: 03/12/2021 13:27:39 EXAM: Comprehensive 2D, Doppler, and color-flow Echocardiogram Patient Location: ICU Room #: 244 Status: routine BSA: 1.62 HR: 70 bpm BP: 101/58 mmHg Rhythm: Pacemaker Other Information Study Quality: Good Indications Congestive Heart Failure COPD Pacemaker CAD 2D Dimensions RVDd: 46.87 mm IVSd: 8.45 (7-11mm) LVOT Diam: 20.40 (18-24mm) LVDd: 47.70 mm PWd: 9.18 (7-11mm) Ascending Ao: 28.38 (22-36mm) LVDs: 35.65 (25-40mm) Left Atrium: 38.63 (27-40mm) Aortic Root: 32.62 mm IVC: 25.00 mm Volumes Left Atrial Volume (Systole) Single Plane 4CH: 56.83 mL Single Plane 2CH: 54.80 mL LA ESV Index: 37.00 mL/m2 Aortic Valve AoV Peak Kraig.: 1.76 m/s [facility] [address] [place] [address] 2 D/M-MODE ECHOCARDIOGRAM Name: ANALIA VALENCIA Room #: 244-P [facility] IN .R.#: [id number] Admission: 03/10/21 Attend Phys: Toñito Dawkins, Discharge: Date of : 42 Report #: [id number] Peak Gr.: 12.39 mmHg LVOT Max P.72 mmHg LVOT Max V: 0.96 m/s STEFANIE Vmax: 1.79 cm2 Pulmonary Valve PV Peak Kraig.: 1.01 m/s PV Peak Gr.: 4.06 mmHg Tricuspid Valve TR Peak Kraig.: 4.21 m/s TR Peak Gr.: 70.84 mmHg PA Pressure: 81.00 mmHg Left Ventricle The left ventricle is normal size. There is normal LV segmental wall motion. There is normal left ventricular wall thickness. The left ventricular systolic function is normal. The left ventricular ejection fraction is within the normal range. LVEF is 65%. This study is not technically sufficient to allow evaluation of the LV diastolic function. Right Ventricle Right ventricle is dilated. Right ventricular systolic function is grossly normal. Pacemaker lead is present in the right ventricle. Atria Left atrium is dilated. Right atrium is dilated. Pacemaker lead is present in the right atrium. Aortic Valve The aortic valve is sclerotic, trileaflet Mild to moderate aortic regurgitation. There is no aortic valvular stenosis. Mitral Valve The mitral valve is normal in structure. Mild mitral annular calcification. Mild-moderate mitral regurgitation. No evidence of mitral valve stenosis. Tricuspid Valve The tricuspid valve is normal in structure. Severe tricuspid regurgitation. Estimated pulmonary artery pressure of 70 mmHg. There is severe pulmonary hypertension. Pulmonic Valve The pulmonary valve is normal in structure. Mild pulmonic regurgitation. [facility] [address] [place] [address] 2 D/M-MODE ECHOCARDIOGRAM Name: ANALIA VALENCIA Room #: 244-P [facility] IN .R.#: [id number] Admission: 03/10/21 Attend Phys: Toñito Dawkins, Discharge: Date of : 42 Report #: [id number] Great Vessels The aortic root is normal in size. IVC is dilated and collapses <50% with inspiration. Pericardium There is no pericardial effusion. <Conclusion> The left ventricular systolic function is normal. There is normal LV segmental wall motion. LVEF is 65%. Right ventricle is dilated. Both atria are dilated. The aortic valve is sclerotic, trileaflet. Mild to moderate aortic regurgitation. The mitral valve is normal in structure. Mild-moderate mitral regurgitation. Severe tricuspid regurgitation. Estimated pulmonary artery pressure of 70 mmHg. There is no pericardial effusion. <ELECTRONICALLY SIGNED> By: Parker Perez MD, [facility] 03/12/21 [phone] Parker Perez MD, [facility] /INF
[2021-03-12 16:29] LABS: HEMATOCRIT 21.6 % (42.0-52.0); MCH 31.9 pg (26.0-34.0); MCHC 32.3 g/dL (28.0-37.0); MCV 98.9 fL (80.0-100.0); RBC 2.18 mil/uL (4.50-6.00); RDW 25.8 % (10.5-14.5); WBC 8.4 thou/uL (4.0-11.0)
[2021-03-13] VITALS (26 sets, daily range): BP systolic 101–142; BP diastolic 48–89
[2021-03-13 05:58] LABS: HEMATOCRIT 22.8 % (42.0-52.0); HEMOGLOBIN 7.4 gm/dL (14.0-18.0); MCH 32.3 pg (26.0-34.0); MCHC 32.5 g/dL (28.0-37.0); MCV 99.3 fL (80.0-100.0); RBC 2.3 mil/uL (4.50-6.00); RDW 26.2 % (10.5-14.5); WBC 9.8 thou/uL (4.0-11.0)
[2021-03-13 06:09] LABS: CALCIUM 8.1 mg/dL (8.5-10.1); MAGNESIUM 1.9 mg/dL (1.8-2.4); POTASSIUM 3.7 mmol/L (3.5-5.1)
--- NOTE | 2021-03-13 06:14 | NUR ---
PT BEEN RESTING IN NO ACUTE DISTRESS.A/OX3.VSS.PT HAVING MUTIPLE SMALL LOOSE TARRY STOOLS,X5 THIS SHIFT.FREQUENT C/O ANXIETY.PT WAS GIVEN ANXIETY THAT HELPED HIM TO FALL ASLEEP FOR 3-4 HOURS.DINA DD,DARK TEA COLORED URINE.FAIR AMOUNT.O2 AT 2LITERS PNC WHILE SLEEPING D/T LOW SATS< 90%.NO ACTIVE BLEEDING OBSERVED OR NOTED.
[2021-03-13 08:17] LABS: HEMATOCRIT 24.4 % (42.0-52.0); HEMOGLOBIN 7.8 gm/dL (14.0-18.0); MCHC 31.9 g/dL (28.0-37.0); MCV 100.3 fL (80.0-100.0); RBC 2.43 mil/uL (4.50-6.00); RDW 25.9 % (10.5-14.5); WBC 10.2 thou/uL (4.0-11.0)
--- NOTE | 2021-03-13 15:24 | NUR ---
Updated faxed to [facility]. They can accept the pt for snf stay and will have a bed for him on Thursday if agreeable.
[2021-03-13 18:21] LABS: HEMATOCRIT 28.3 % (42.0-52.0); HEMOGLOBIN 9.2 gm/dL (14.0-18.0)
[2021-03-14] VITALS (12 sets, daily range): BP systolic 106–148; BP diastolic 40–80
[2021-03-14 02:15] LABS: HEMATOCRIT 25.4 % (42.0-52.0); HEMOGLOBIN 8.4 gm/dL (14.0-18.0); MCH 32.1 pg (26.0-34.0); MCHC 33.1 g/dL (28.0-37.0); MCV 96.9 fL (80.0-100.0); RBC 2.62 mil/uL (4.50-6.00); WBC 9.5 thou/uL (4.0-11.0)
[2021-03-14 02:29] LABS: CALCIUM 7.9 mg/dL (8.5-10.1); MAGNESIUM 1.6 mg/dL (1.8-2.4); POTASSIUM 3.5 mmol/L (3.5-5.1)
--- NOTE | 2021-03-14 05:34 | NUR ---
PT RESTED THROUGH THE NOC IN NO ACUTE DISTRESS.VSS.NO ACTIVE BLEEDING NOTED.NO TARRY STOOL THIS SHIFT.DINA HUERTA AMT OF UO.POC IS TO TRANSFER TO [facility] ON THURSDAY IF MEDICALLY STABLE.ASSESSMENTS COMPLETED DOCUMENTED.
[2021-03-14 10:07] LABS: % SATURATION 12 % (20-39); IRON 37 ug/dL (65-175); TIBC 316 ug/dL (250-450)
--- NOTE | 2021-03-14 11:22 | NUR ---
PT TRANSFERED TO ROOM 202. REPORT GIUEN TO ALOK SANCHEZ. ALL PT BELONGINGS TAKEN TO NEW ROOM. RN ATTEMPTED TO CONTACT DAUGHTER IN ORDER TO INFORM HER. UNABLE TO CONTACT.
[2021-03-15 03:03] LABS: HEMATOCRIT 26.8 % (42.0-52.0); MCH 32.6 pg (26.0-34.0); MCHC 33.5 g/dL (28.0-37.0); MCV 97.1 fL (80.0-100.0); RBC 2.76 mil/uL (4.50-6.00); RDW 23.1 % (10.5-14.5); WBC 10.7 thou/uL (4.0-11.0)
[2021-03-15 04:18] VITALS: BP 131/66
--- NOTE | 2021-03-15 07:27 | NUR ---
PATIENT CARES ASSUMED AT SHIFT CHANGE. PATIENT ASSESSED AND MEDS PASSED. PATIENT HAD TWO LARGE EXSPOLSIVE DIARRHEA. TEACHING THAT PATIENT NEEDS MORE BULK IN HIS DIET. STOOL VERY LIQUID. A BATH WAS GIVEN. ROUNDS DONE. THE BED IS IN A LOW AND LOCKED POSITION
[2021-03-15 08:24] VITALS: BP 119/57
--- NOTE | 2021-03-15 11:20 | NUR ---
Pt has been evaluated by [facility] and is a good candidate. The rehab manpower development manager spoke with the pt and his dtr and both are agreeable. Cm also spoke with both and confirmed they wish to go to acute rehab vs snf at [facility]. CV liason notified to cancel the referral. Pt's dtr provided the unit number for rehab as well as cm contact info. She would like the pt to go home with her at [place] and have hh when he is finished with acute rehab. She lives in [place]. She is aware of team conferences on . Pt is motivated and feeling better. Hgb stable today and cleared by GI for dc.
[2021-03-15 12:01] VITALS: BP 106/59
[2021-03-15] MEDS ORDERED: LORAZEPAM 0.50.5 MG PO (12:23)
[2021-03-15] MEDS ORDERED: VITAMIN B-12100 MC1 PO (12:24)
[2021-03-15] MEDS ORDERED: FUROSEMIDE 40 M40 M1 PO (12:25)
[2021-03-15] MEDS ORDERED: PROTONIX40 M2 PO (12:26)
[2021-03-15] MEDS ORDERED: VENOFER200 MG/10 IVPB (12:27)
[2021-03-15 15:09] VITALS: BP 101/50
== END 2021-03-15 18:00 | DRG 377 ==
LOC: ER 05:52 → ICU 07:29 → EROBS 07:29 → ER 10:00 → ICU 10:00 → 2N 03-14 11:09
PROVIDERS: Emergency Medicine; Internal Medicine; Internal Medicine Gastroenterology; Nurse Practitioner; ADMIT Internal Medicine; ATTEND Internal Medicine
PROC: 30233N1 Transfusion of Nonautologous Red Blood Cells into Peripheral Vein, Percutaneous Approach (ICD-10-PCS; principal; 2021-03-10)
PROC: 0DB58ZZ Excision of Esophagus, Via Natural or Artificial Opening Endoscopic (ICD-10-PCS; principal; 2021-03-10)
PROC: 0W3P8ZZ Control Bleeding in Gastrointestinal Tract, Via Natural or Artificial Opening Endoscopic (ICD-10-PCS; principal; 2021-03-10)
PROC: 5A0935A Assistance with Respiratory Ventilation, Less than 24 Consecutive Hours, High Flow/Velocity Cannula (ICD-10-PCS; 2021-03-11)
DX: K55.21 Angiodysplasia of colon with hemorrhage (principal); R57.8 Other shock; R65.11 Systemic inflammatory response syndrome (SIRS) of non-infectious origin with acute organ dysfunction; D62 Acute posthemorrhagic anemia; I48.20 Chronic atrial fibrillation, unspecified; E44.0 Moderate protein-calorie malnutrition; Z68.1 Body mass index [BMI] 19.9 or less, adult; R18.8 Other ascites; Z20.822 Contact with and (suspected) exposure to COVID-19; K21.9 Gastro-esophageal reflux disease without esophagitis; G62.9 Polyneuropathy, unspecified; J44.9 Chronic obstructive pulmonary disease, unspecified; I25.10 Atherosclerotic heart disease of native coronary artery without angina pectoris; N40.0 Benign prostatic hyperplasia without lower urinary tract symptoms; Z66 Do not resuscitate; D69.6 Thrombocytopenia, unspecified; F41.9 Anxiety disorder, unspecified; E78.5 Hyperlipidemia, unspecified; K74.60 Unspecified cirrhosis of liver; R26.89 Other abnormalities of gait and mobility; Z79.01 Long term (current) use of anticoagulants; Z95.1 Presence of aortocoronary bypass graft; Z90.49 Acquired absence of other specified parts of digestive tract; Z87.442 Personal history of urinary calculi; Z86.73 Personal history of transient ischemic attack (TIA), and cerebral infarction without residual deficits; Z85.01 Personal history of malignant neoplasm of esophagus; Z92.3 Personal history of irradiation; Z92.21 Personal history of antineoplastic chemotherapy; Z95.0 Presence of cardiac pacemaker
CPT/HCPCS: 10078; 10081; 50455; 62110; 62900; 70005; 85076

== ENCOUNTER 2021-03-15 11:50 | Inpatient (IN) | payer OTHER ==
[~2021-03-15] VITALS: Ht 177.8 cm; Wt 58.1 kg
[2021-03-15] MEDS ORDERED: LORAZEPAM 0.50.5 MG PO (12:23)
[2021-03-15] MEDS ORDERED: VITAMIN B-12100 MC1 PO (12:24)
[2021-03-15] MEDS ORDERED: FUROSEMIDE 40 M40 M1 PO (12:25)
[2021-03-15] MEDS ORDERED: PROTONIX40 M2 PO (12:26)
[2021-03-15] MEDS ORDERED: VENOFER200 MG/10 IVPB (12:27)
[2021-03-15 20:26] VITALS: BP 120/59
--- NOTE | 2021-03-16 00:20 | NUR ---
PT ADMITTED TO 511 AT 1810. PT ALERT AND ORIENTED X 4. LFA SL INTACT. PT HAS LARGE BRUISE ON RIGHT SIDE OF NECK WHICH HE STATES HE HAD AN IV THERE. REDNESS ON COCCYX. ARROYO REMOVED AT 1530. VOIDED 100 ML AT 2300. BLADDER SCAN 7 AT THAT TIME. PT DENIES PAIN OR DISCOMFORT. BED ALARM ON FOR SAFETY. CONSENTS SIGNED. UNIT HANDBOOK GIVEN TO PT. PT ORIENTED TO ROOM AND USE OF CALL LIGHT. FALL PRECAUTIONS EXPLAINED TO PT. ATIVAN GIVEN PER PT REQUEST FOR ANXIETY. PT APPEARS TO BE SLEEPING ON HOURLY ROUNDS.
[2021-03-16 05:44] LABS: HEMATOCRIT 26.1 % (42.0-52.0); HEMOGLOBIN 8.7 gm/dL (14.0-18.0); MCH 32.4 pg (26.0-34.0); MCHC 33.2 g/dL (28.0-37.0); MCV 97.6 fL (80.0-100.0); RBC 2.67 mil/uL (4.50-6.00); RDW 23.7 % (10.5-14.5); WBC 8.5 thou/uL (4.0-11.0)
[2021-03-16 05:50] LABS: POTASSIUM 3.4 mmol/L (3.5-5.1)
[2021-03-16 10:40] VITALS: BP 173/83
[2021-03-16 10:41] VITALS: BP 128/64
--- NOTE | 2021-03-16 10:54 | NUR ---
PT WORKING WITH THERAPY WALKING IN THE WELSH WITH WALKER. PT DENIES ANY PAIN. PT LUNGS CLEAR. PT HAS SCAB TO LEFT ELBOW FROM PREVIOUS FALL. PT HAS BRUISING TO RT NECK WITH A SMALL LUMP FROM PREVIOUS IV TO RT NECK. PT TOLERATING DIET AND ALSO TAKING MEDS WHOLE. PT STATED HE HAS BEEN HAVING DIARRHEA AND REQUEST MEDS TO STOP STOOLS. PT HAS SL TO LEFT HAND FOR IV IRON.
--- NOTE | 2021-03-16 11:01 | NUR ---
ADM LORAZEPAM 0.5MG PO FOR ANXIETY. PT STATED HE HAS BEEN THROUGH ALOT IN HIS LIFE AND HE FELLS ANXIOUS. PT STATED HE FEELS BAD FOR FEELING THIS WAY.
--- NOTE | 2021-03-16 13:27 | NUR ---
ADM IMMODIUM 2MG PO FOR STOOL. PT UP TO BATHROOM X1 ASSIST PT DID HAVE A BM.
[2021-03-16 20:00] VITALS: BP 131/81
--- NOTE | 2021-03-17 03:21 | NUR ---
assumed care approx 1900 evening 03/16. pt sitting up in recliner alert and oriented x4, pleasant and cooperative. pt voiding per urinal. pt took hs meds with water tolerating well. pt appears to be sleeping soundly. bed alarm on and call light in reach. will continue to monitor.
[2021-03-17 05:54] LABS: ABSOLUTE NEUTROPHILS 6.6 thou/uL (1.4-8.2); BASOPHILS 0.3 % (0.0-2.0); HEMATOCRIT 28.2 % (42.0-52.0); LYMPHOCYTES 7.9 % (24.0-44.0); MCH 31.8 pg (26.0-34.0); MCHC 31.9 g/dL (28.0-37.0); MCV 99.7 fL (80.0-100.0); MONOCYTES 7.8 % (1.0-8.0); PLATELET COUNT 207 thou/uL (150-400); RBC 2.83 mil/uL (4.50-6.00); RDW 24.3 % (10.5-14.5); WBC 8.3 thou/uL (4.0-11.0)
[2021-03-17 06:14] LABS: CALCIUM 7.9 mg/dL (8.5-10.1); CREATININE 0.9 mg/dL (0.7-1.3); MAGNESIUM 1.6 mg/dL (1.8-2.4); PHOSPHORUS 2.1 mg/dL (2.5-4.9); POTASSIUM 3.5 mmol/L (3.5-5.1)
[2021-03-17 07:43] VITALS: BP 141/87
--- NOTE | 2021-03-17 16:26 | NUR ---
THIS NURSE ASSUMED CARE OF THIS PATIENT AT 0700. PATIENT A&O X 4. PATIENT HAS IV ACCESS IN LEFT FOREARM FOR IRON ADMINISTRATION. PATIENT EXPERIENCING NO PAIN THIS SHIFT. HGB LEVEL INCREASING TO 9 THIS MORNING. PATIENT VERY COOPERATIVE AND PLEASANT. FAMILY MEMBER AT BEDSIDE THIS AFTERNOON.
[2021-03-17 20:32] VITALS: BP 129/65
--- NOTE | 2021-03-17 23:26 | NUR ---
PT ALERT AND ORIENTED X 4. 02 ON AT 2L PER NC. PT TAKES MEDS WITH WATER WITHOUT DIFFICULTY. PT DENIES PAIN OR DISCOMFORT. AMBIEN GIVEN AT HS FOR SLEEP. PT APPEARS TO BE SLEEPING ON HOURLY ROUNDS.
[2021-03-18 04:45] LABS: ABSOLUTE NEUTROPHILS 5.6 thou/uL (1.4-8.2); BASOPHILS 0.4 % (0.0-2.0); EOSINOPHILS 3.1 % (0.0-3.0); LYMPHOCYTES 8.5 % (24.0-44.0); MCH 30.7 pg (26.0-34.0); MCHC 30.8 g/dL (28.0-37.0); MCV 99.7 fL (80.0-100.0); MONOCYTES 7.4 % (1.0-8.0); PLATELET COUNT 142 thou/uL (150-400); POLYS 80.6 % (36.0-66.0); RBC 3.71 mil/uL (4.50-6.00); RDW 24.1 % (10.5-14.5); WBC 6.9 thou/uL (4.0-11.0)
[2021-03-18 04:55] LABS: CALCIUM 7.5 mg/dL (8.5-10.1); CREATININE 0.9 mg/dL (0.7-1.3); MAGNESIUM 1.9 mg/dL (1.8-2.4); PHOSPHORUS 2.2 mg/dL (2.5-4.9); POTASSIUM 3.4 mmol/L (3.5-5.1)
[2021-03-18 05:19] LABS: HEMOGLOBIN 11.4 gm/dL (14.0-18.0)
[2021-03-18 08:46] VITALS: BP 123/66
--- NOTE | 2021-03-18 16:25 | NUR ---
80 yr old male came ED complaints of weakness, and falls (did not hit his head or have LOC), dark stools, and blood in sputum. he was diagnosed with acute blood loss anemia and hypotension. GI consulted and had EGD showed AVMs proximal stomach and was treated with epi. patient required 3 units PRBCs and iv iron replacement. he has required some oxygen. and has never been on oxygen prior. Chart review. BPCI. He lives at home alone, 3 steps to enter the home, independent with ADLs and IADLs, No DME, manage own medication and still drives vehicle. right handed, drives. no noted in chart he . plans on going to stay at his daughters house after discharge from rehab
[2021-03-18] MEDS ORDERED: TRAZODONE HCL50 MG PO (17:45)
--- NOTE | 2021-03-18 17:47 | NUR ---
THIS NURSE ASSUMED CARE OF PATIENT AT 0700. PATIENT A&O X 4. PATIENT EXPERIENCES ANXIETY. THIS NURSE ADMINISTERED ANTI-ANXIETY MEDICATIONS PRN. PATIENT A LITTLE PALE. PATIENT ENJOYED MEALS. PATIENT AMBULATES WELL TO BATHROOM WITH GAIT BELT, WALKER, AND ONE ASSIST. PATIENT ALSO USES URINAL BY BEDSIDE.
[2021-03-18 21:23] VITALS: BP 131/74
--- NOTE | 2021-03-19 00:23 | NUR ---
PT ASSESSMENT COMPLETED AND VSS. MEDS GIVEN ORDERED AND WELL TOLERATED. FALL PRECAUTIONS IN PLACE. PT IMPULSIVE SEVERAL TIMES WHEN NEEDING TO GET UP AND USE HIS URINAL. PT STEADY WHEN UP WITH ASST AT BEDSIDE. SUPPORTIVE FAMILY IN TO SEE PT EARLY DURING SHIFT. SAT WNL ON NC. PT ASKED FOR AMBIEN THIS EVENING INSTEAD OF SCHEDULED SLEEP MEDICATION. PT STATES THAT TRAZADONE DOES NOT WORK FOR HIM. PRN ANXIETY MEDICATION HELPFUL. PT SLEEPING AT THIS TIME. WILL CONTINUE TO MONITOR FREQUENTLY.
[2021-03-19 08:00] VITALS: BP 131/67
[2021-03-19 14:31] LABS: URINE BLOOD 3+ (Negative); URINE CLARITY SL CLOUDY; URINE COLOR YELLOW; URINE GLUCOSE-RANDOM* NEGATIVE (Negative); URINE KETONES NEGATIVE (Negative); URINE PROTEIN (DIPSTICK) 2+ (Negative); URINE SPECIFIC GRAVITY >= 1.030 (1.005-1.035)
[2021-03-19 14:32] LABS: ICTOTEST (BILI CONFIRMATORY) Negative (Negative); URINE BILIRUBIN NEGATIVE (Negative); URINE LEUKOCYTES-REFLEX 2+ (Negative); URINE NITRITE-REFLEX POSITIVE (Negative)
[2021-03-19 14:44] LABS: SQUAMOUS 0-3 Few /LPF (0-3)
[2021-03-19 14:45] LABS: AMORPHOUS URATES Moderate /LPF (None Seen); CASTS None Seen /LPF (None Seen); URINE RBC 1-2 Rare /HPF (NONE SEEN); URINE WBC-REFLEX >25 Many /HPF (0-5)
--- NOTE | 2021-03-19 15:32 | NUR ---
PATIENT A&O X 4, ON 2L OF O2 BY SC, AND CONTINENT OF BOWEL AND BLADDER. UA COMPLETED TODAY WITH RESULTS OF INFECTION PRESENT. CONTACT JERMAINE AND SHE ORDERED ANTIBIOTICS. PATIENT EXPERIENCES SHORTNESS OF BREATH UPON EXERTION. PATIENT EXPERIENCES ANXIETY AND TAKES MEDICATION NEEDED. PATIENT TAKES MEDICATIONS WHOLE WITH WATER. PATIENT AMBULATES WITH GAIT BELT AND WALKER WITH ONE ASSIST TO TOILET. PATIENT TOOK ANTI-DIARRHEA MEDICATION THIS MORNING. PATIENT HAS IV IN LEFT FOREARM, SALINE LOCKED.
[2021-03-19 19:45] VITALS: BP 134/72
--- NOTE | 2021-03-20 02:29 | NUR ---
ASSUMED PT CARE AT 1900.PT DENIED PAIN SO FAR.PT REF HIS SCHEDULED TRAZADONE.AMBIEN AND ATIVAN GIVEN AT HS PER PT'S REQUEST.PT STILL ON 2L/NC.SOB WITH EXERTION NOTED.PT SLEEPING ON HIS BED AT THIS TIME.CALL LIGHT WITHIN REACH.
[2021-03-20 06:06] LABS: HEMATOCRIT 25.6 % (42.0-52.0); MCHC 31.7 g/dL (28.0-37.0); PLATELET COUNT 147 thou/uL (150-400); RBC 2.54 mil/uL (4.50-6.00); RDW 23.8 % (10.5-14.5); WBC 13.6 thou/uL (4.0-11.0)
[2021-03-20 06:21] LABS: HEMOGLOBIN 8.1 gm/dL (14.0-18.0)
[2021-03-20 06:27] LABS: CALCIUM 7.3 mg/dL (8.5-10.1); CREATININE 0.9 mg/dL (0.7-1.3); MAGNESIUM 1.7 mg/dL (1.8-2.4)
[2021-03-20 08:00] VITALS: BP 144/84
[2021-03-20 11:23] LABS: ABSOLUTE NEUTROPHILS 11.7 thou/uL (1.4-8.2)
[2021-03-20 11:24] LABS: ANISOCYTOSIS 3+
--- NOTE | 2021-03-20 15:07 | NUR ---
PT CONTINUES ON 2L O2/NC. IS ON CEPHALEXIN FOR UTI. WAS GIVEN A ONE TIME DOSE OF MAGNESIUM OXIDE PER DR ORDER. 2 VIEW CXR ALSO DONE, WHICH SHOWED IMPROVEMENTS IN BOTH LUNGS WITH A SMALL RESIDUAL PLEURAL EFFUSION AND LLL INFILTRATE. DENIES PAIN OR DISCOMFORT. DID REQUEST ATIVAN X 1 THIS AM WHICH WAS GIVEN WITH RELIEF BEING ACHIEVED.
[2021-03-20 20:22] VITALS: BP 134/79
--- NOTE | 2021-03-21 01:02 | NUR ---
PT ALERT AND ORIENTED X 4. STANDS AT SIDE OF BED TO USE URINAL. VOIDS SMALL AMTS DARK YELLOW URINE. 02 ON AT 2L PER NC. PT TAKES MEDS WITH WATER WITHOUT DIFFICULTY. LORAZEPAM GIVEN AT 2244 PER PT REQUEST FOR ANXIETY. BED ALARM ON FOR SAFETY. PT HAS BEEN AWAKE MUCH OF NIGHT.
[2021-03-21 06:14] LABS: HEMATOCRIT 24.8 % (42.0-52.0); MCH 32.5 pg (26.0-34.0); MCHC 32.1 g/dL (28.0-37.0); MCV 101.4 fL (80.0-100.0); RBC 2.45 mil/uL (4.50-6.00); RDW 24.3 % (10.5-14.5); WBC 10.1 thou/uL (4.0-11.0)
[2021-03-21 08:00] VITALS: BP 134/80
[2021-03-21 12:32] LABS: CALCIUM 7.7 mg/dL (8.5-10.1); CREATININE 0.9 mg/dL (0.7-1.3); POTASSIUM 4.1 mmol/L (3.5-5.1)
--- NOTE | 2021-03-21 15:08 | NUR ---
Team meeting, recommendation, home with hh (pt, ot, nursing) on 03/23/21. Plans to stay with his daughter for at while at md. Patient already has home oxygen. PCP Dr Aburto. [facility].
[2021-03-21 16:15] VITALS: BP 134/80
--- NOTE | 2021-03-21 17:55 | NUR ---
PT A&OX4, ACTIVITY MODIFIED TO INDEPENDENT IN ROOM TO USE URINAL.
[2021-03-21 19:54] VITALS: BP 136/70
--- NOTE | 2021-03-22 02:11 | NUR ---
PT ASSESSMENT COMPLETED AND VSS. MEDS GIVEN ORDERED AND WELL TOLERATED. FALL PRECAUTIONS IN PLACE. PT HAD A LARGE SOFT LOOSE BM THIS EVENING. IMMODIUM GIVEN PER PT REQUEST. PT UP ON HIS OWN TO USE HIS URINAL AT BEDSIDE ORDERED AND STEADY. PT SLEEPING WELL AFTER SLEEP AND ANXIETY MEDICATION. WILL CONTINUE TO MONITOR FREQUENTLY.
[2021-03-22 07:57] VITALS: BP 131/71
[2021-03-22 21:21] VITALS: BP 122/62
--- NOTE | 2021-03-23 06:37 | NUR ---
patient aox4 makes needs known. patient was upset because his ambien was d/cd called income tax expert no new orders, patient had refused trazadone and later took trazadone it d/t ambien not being restarted. patient uses a urinal. patient soa with activities. patient needs stand by assist with adl, bed mobility, transfer and toileting. patient is calm and cooperative. fall precaution in place. patient in bed asleep at this time breathing regular and unlaboured.
[2021-03-23 08:00] VITALS: BP 116/74
[2021-03-23] MEDS ORDERED: BACTRIM DS TAB1 EACH PO (09:59)
--- NOTE | 2021-03-23 10:16 | NUR ---
PT BEING DISCHARGED TODAY. PT DTR IS COMING TO PICK HIM UP AT 1100. PT HAS OXYGEN ON 2L NC. PT WANTED TO KNOW ABOUT THE ABX FOR HIS INFECTION OF THE URINE. PT IS VOIDING PER URINAL PT COLOR OF URINE IS ORANGE. PT LUNGS CLEAR. PT DID TAKE MEDS ORAL WITH THIN WATER. PT UP WITH WALKER WITH ASSIST.
--- NOTE | 2021-03-23 12:13 | NUR ---
PT LEFT VIA W/C TO DTR HOME. PT WAS ABLE TO TRANSFER FROM W/C TO CAR WITHOUT ANY ASSISTANCE. PT WAS ON ROOM AIR. PT STATED HE DIDN'T HAVE ANY LORAZEPAM AT HOME AND NEEDED TO HAVE SOME FOR BEDTIME. HE SAYS HE GETS HIS MEDS VIA [facility] AND THEY DELIVER THEM. RECOMMENDED TO CONTACT HIS PRIMARY TO REFILL THIS MEDICATION. WILL ADDRESS WITH DR. LINDSEY ABOUT CALLING IN THIS MEDICATION.
--- NOTE | 2021-03-23 12:24 | NUR ---
NOTIFIED [facility] ABOUT PT DISCHARGED, WILL FAX D/C SUMMARY AND INSTRUCTIONS.
[2021-03-23] MEDS ORDERED: LORAZEPAM 0.50.5 MG PO (12:27)
[2021-03-23 12:28] VITALS: BP 134/80
--- NOTE | 2021-03-23 12:47 | NUR ---
PT DISCHARGING TODAY TO HOME WITH [facility] FAXED DC ORDERS/SUMMARY RECEIVED CONFIRMATION CALLED AND LEFT MSG WITH THE ONCALL NURSE AT [facility] THEY WILL ARRANGE VISITS WITH PT.
== END 2021-03-23 12:00 | disposition home health service (06) | DRG 948 ==
PROVIDERS: Internal Medicine; Nurse Practitioner; Nurse Practitioner Family; ADMIT Physical Medicine & Rehabilitation; ATTEND Physical Medicine & Rehabilitation
DX: R53.81 Other malaise (principal); D62 Acute posthemorrhagic anemia; K92.2 Gastrointestinal hemorrhage, unspecified; J90 Pleural effusion, not elsewhere classified; I48.21 Permanent atrial fibrillation; E44.0 Moderate protein-calorie malnutrition; T83.511A Infection and inflammatory reaction due to indwelling urethral catheter, initial encounter; Z68.41 Body mass index [BMI] 40.0-44.9, adult; N30.90 Cystitis, unspecified without hematuria; D69.6 Thrombocytopenia, unspecified; I25.10 Atherosclerotic heart disease of native coronary artery without angina pectoris; B95.62 Methicillin resistant Staphylococcus aureus infection as the cause of diseases classified elsewhere; E87.6 Hypokalemia; E83.42 Hypomagnesemia; N40.0 Benign prostatic hyperplasia without lower urinary tract symptoms; Z66 Do not resuscitate; F41.9 Anxiety disorder, unspecified; E83.39 Other disorders of phosphorus metabolism; I48.0 Paroxysmal atrial fibrillation; E78.5 Hyperlipidemia, unspecified; R53.1 Weakness; G47.00 Insomnia, unspecified; R26.9 Unspecified abnormalities of gait and mobility; R29.6 Repeated falls; I95.9 Hypotension, unspecified; Z91.81 History of falling; Z90.49 Acquired absence of other specified parts of digestive tract; Z85.01 Personal history of malignant neoplasm of esophagus; Z92.21 Personal history of antineoplastic chemotherapy; Z92.3 Personal history of irradiation; Z95.1 Presence of aortocoronary bypass graft; Z95.0 Presence of cardiac pacemaker
CPT/HCPCS: 10112